=== PATIENT | female | born 1940 | race Caucasian/White ===

== ENCOUNTER → 2020-06-16 12:08 | Outpatient (CLI) | payer MEDICARE, SELFPAY ==
[2020-06-16 15:21] LABS: Absolute Lymphocyte Count 1.43 X10^3/uL (0.83-4.51); Absolute Neutrophil Count 3.7 X10^3/uL (2.0-7.7); Basophil# 0.05 X10^3/uL; Basophil% 0.9 % (0-1); Eosinophil# 0.13 X10^3/uL; Eosinophils% 2.3 % (0-5); Hematocrit 32.4 % (37-47); Hemoglobin 10.4 g/dL (12.0-15.0); Lymphocyte # 1.43 X10^3/ul (0.83-4.51); Lymphocyte % 25.1 % (19-41); Mean Corp Hgb Conc 32.1 g/dL (32-36); Mean Corpuscular Hgb 33.9 pg (27.0-32.0); Mean Corpuscular Volume 105.5 fL (81-99); Mean Platelet Vol. 10.2 fl (6.2-12.0); Monocyte# 0.43 X10^3/uL; Monocyte% 7.5 % (0-10); NRBC Flagged by Analyzer 0 % (0-5); Neutrophil # 3.65 X10^3/uL (2.7-7.7); Platelet Count 213 K/mm3 (150-450); RBC Distribution Width SD 50.3 fl (35.1-43.9); Red Blood Count 3.07 M/mm3 (4.2-5.4); White Blood Count 5.7 K/mm3 (4.4-11.0)
[2020-06-16 15:45] LABS: ALB/GLOB Ratio 0.9 RATIO (0.9-2.4); AST(SGOT) 31 U/L (15-37); Alanine Aminotransfer ALT/SGPT 24 U/L (13-56); Albumin, Serum 3.2 g/dL (3.2-5.0); Alkaline Phosphatase 130 U/L (45-117); Anion Gap 6 (5-15); BUN 48 mg/dL (7-18); Calcium,Total 9.1 mg/dL (8.5-10.1); Chloride 113 mmol/L (98-107); Cholesterol 184 mg/dL (200); Creatinine, Serum 2.52 mg/dL (0.55-1.02); EST Glomerular Filtration Rate 20 mL/min (>60); Est Glom Filt Rate - Afr Amer 24 mL/min (>60); Globulin 3.7 g/dL (2.2-4.2); Glucose 88 mg/dL (74-106); High Density Lipoprotein 69 mg/dL; Phosphorus 3.4 mg/dL (2.5-4.9); Potassium 4.2 mmol/L (3.5-5.1); Protein, Total 6.9 g/dL (6.4-8.2); Sodium Level 142 mmol/L (136-145); T4 Free Direct 1.02 ng/dL (0.76-1.46); Thyroid Stim Hormone (TSH) 1.24 uIU/mL (0.358-3.74); Triglycerides 142 mg/dL; Very Low Density Lipoprotein 28 mg/dL (5-40)
[2020-06-19 15:06] LABS: Ferritin 465 ng/mL (8-252); Iron 81 ug/dL (50-170); Iron Binding Capacity,Total 284 ug/dL (250-450); PERCENT IRON SATURATION 28.5 % (15.0-55.0)
[2020-06-20 15:13] LABS: Vitamin D 1,25-Dihydroxy 42.8 pg/mL (19.9-79.3)
[2020-06-28 16:47] LABS: Thyroglobulin RIA 6.9 ng/mL (.); Thyroid Peroxidase AB 266 IU/mL (0-34)
== END ==
PROVIDERS: PCP Family Medicine; Referring Provider Family Medicine; Visit Provider Family Medicine
DX: I25.10 Atherosclerotic heart disease of native coronary artery without angina pectoris (principal); N18.4 Chronic kidney disease, stage 4 (severe); E03.9 Hypothyroidism, unspecified
CPT/HCPCS: 36415; 80053; 80061; 82607; 82652; 82728; 82746; 83540; 83550; 83970; 84100; 84432; 84439; 84443; 85025; 86376; 86800

== ENCOUNTER 2020-06-19 22:11 | Observation (INO) | payer MEDICARE, SELFPAY ==
[2020-06-19 22:12] VITALS: BP 161/93; PULSE 62; RESP 18; TEMP 36.9; O2SAT 96; BMI 21.4
--- NOTE | 2020-06-19 22:18 | ED.RN ---
Dr Stringer called to triage to assess potential stroke alert.
[2020-06-19 22:25] VITALS: BP 160/95; PULSE 60; RESP 14; O2SAT 97
--- NOTE | 2020-06-19 22:25 | EKG12_ITS ---
Test Reason : STROKE Blood Pressure : / mmHG Vent. Rate : 060 BPM Atrial Rate : 060 BPM P-R Int : 174 ms QRS Dur : 160 ms QT Int : 478 ms P-R-T Axes : 043 -63 099 degrees QTc Int : 478 ms Normal sinus rhythm Left axis deviation Left bundle branch block Abnormal ECG Confirmed by ROXANA NASCIMENTO, JEANIE ([id number]), photo editor ALBERT OMER ([id number]) on 06/21/2020 9:16:36 AM Referred By: JAZLYN NASCIMENTO Confirmed By:JEANIE SCHMIDT MD
--- NOTE | 2020-06-19 22:26 | EDS_ITS ---
HPI History of Present Illness Chief Complaint: Neuro S/Sx Informant: patient and spouse/S.O. Onset/Context/Timing Onset: Today (noticed around 2139; last seen talking normally at 2100) Timing: Continuous Quality and Location: Positive for Right Facial Droop, Right Arm Weakness and Slurred Speech Current Severity: Mild Maximum Severity: Severe Worsened by: n/a Relieved by: nothing in particular Associated Symptoms Associated Symptoms: Negative for Headache, Vomiting and Chest Pain Narrative Narrative: brings in this demented patient for acute onset of slurred s peech, clumsiness with her right hand when trying to pick something up and seemed weak with it, and a facial droop. Seems better now. Difficult to assess because she is fairly demented. I was asked to evaluate this patient in triage because they walked in through the front door and there were patient in the waiting room with no available beds in the emergency department. He has been further states that earlier at dinner, around 1800, which is approximately 4.5 hours prior to this evaluation now, she was acting very unusual although she has dementia, and that she was using her hands with good strength but with confusion, at one point she was trying to pour water on her food, the intervened and then she tried to set her water glass on her dinner, he had to go wipe the food off of it, states that she was speaking at baseline though. No falls or injuries, no recent illness. She is on aspirin and clopidogrel because of a history of a cardiac stent. He is the durable healthcare power of senior attorney, he confirms that she has already written an advanced directive that basically says DNR [facility] arrest although there is no paperwork with them at this time. [facility] Medical History (Updated 06/19/20 @ 23:[address] Guille Stringer MD) CAD (coronary artery disease) Dementia Hypertension TIA (transient ischemic attack) Allergy/AdvReac Type Severity Reaction Status Date / Time Penicillins Allergy Hives Verified 06/19/20 22:28 wheat Allergy Angioedema Verified 06/19/20 22:28 Social History (Updated 06/19/20 @ 22:[address] Guille Stringer MD) household members: significant other Smoking Status: Never smoker ROS ROS ED Review of Systems ROS Unobtainable: due to mental condition and other Details: dementia Constitutional Constitutional ED: Denies chills or fever(s) Eyes Eyes: Denies blurry vision or diplopia ENT ENT ED: Denies ear pain, rhinorrhea or sore throat Cardiovascular Cardiovascular: Denies chest pain Respiratory/Chest Respiratory/Chest: Denies dyspnea Gastrointestinal Gastrointestinal: Reports other Details: occasional BRBPR ; Denies abdominal pain or vomiting Musculoskeletal Musculoskeletal: Denies back pain or neck pain Integumentary Denies abscess or rash EXAM Physical Exam Const Vital Signs: 06/19/20 22:12 06/19/20 22:25 06/19/20 22:44 Temperature 98.4 F Temperature Source Temporal Pulse Rate 62 60 Respiratory Rate 18 14 Blood Pressure 161/93 H 160/95 H Blood Pressure Mean 115 116 Pulse Ox 96 97 Oxygen Delivery Method Room Air Room Air Room Air 06/19/20 23:15 Temperature Temperature Source Pulse Rate 61 Respiratory Rate 15 Blood Pressure 170/83 H Blood Pressure Mean 112 Pulse Ox Oxygen Delivery Method Positive well nourished and well developed General Appearance ED: well developed and NAD HEENT Reports moist mucous membranes normocephalic and atraumatic Eyes PERRL and EOMs intact bilaterally Neck full ROM and supple Resp normal respiratory effort and clear to auscultation bilaterally Cardio regular rate, regular rhythm and no murmurs Rate: Negative for tachycardic GI normal to inspection, nondistended, normoactive bowel sounds, soft to palpation, non-tender and non-distended Back/Spine no CVA tenderness General Back: other FROM Extremity normal to inspection General Extremety ED: Negative for edema, pulses abnormal or tenderness General Extremity: Negative for edema or pulses abnormal Neuro CN's II-XII intact bilaterally and no sensory deficits noted Sensorium / Orientation: awake and alert Motor Exam: strength 5/5 throughout Skin no rashes or lesions noted and no wounds STROKE Vital Signs/Narrative: Vital Signs Temp Pulse Resp BP Pulse Ox 06/19/20 23:15 61 15 170/83 H 06/19/20 22:25 60 14 160/95 H 97 06/19/20 22:12 98.4 F 62 18 161/93 H 96 NIHSS Initial: 1a Level of Consciousness: 0 1b LOC Questions (Score 2 if aphasic/stupor): 2 1c LOC Commands (Only score 1st attempt): 0 2 Best Gaze (If aphasic, use reflexive mvmts.): 0 3 Visual: 0 4 Facial Palsy: 0 5 Motor Arm Right (UN = amputation/fusion): 0 5 Motor Arm Left: 0 6 Motor Leg Right: 0 6 Motor Leg Left: 0 7 Limb ataxia (Only + if out of proportion): 0 8 Sensory (Aphasia/stupor=0 or 1, coma=2): 0 9 Best Language: 1 10 Dysarthria (mute, coma=2, intubated=UN): 0 11 Extinction and Inattention (only scored if +): 0 Total Score: 3 MDM MDM MDM Narrative Medical decision making narrative: Discussed in real-time with neurology while stroke neurologist was evaluating the patient at bedside via telehealth. She agrees that she has an abnormal NIH, and is clinically testing positive for aphasia although much of it seems to be dementia according to the . He thinks she currently is at baseline. We discussed TPA with the , and he prefers not to give it since she seems to be at her baseline right now, and I think that is reasonable and appropriate. CT angiography is negative, so plan is to admit the patient for further work-up as a TIA. It is noted that she is on aspirin and clopidogrel as well. It is also noted that she is a little anemic compared with her last blood draw, she states she has had minor amount of blood in her stool recently. We will monitor that, no need for blood transfusion emergently at this time but sent type and screen, discussed with hospitalist for admission to PCU Lab Data Labs: Laboratory Results - last 24 hr 06/19/20 06/19/20 06/19/20 22:45 22:45 22:45 WBC 6.0 RBC 2.45 L Hgb 8.4 L Hct 25.8 L MCV 105.3 H MCH 34.3 H MCHC 32.6 RDW Std Deviation 49.4 H RDW Coeff of [place] 12.9 Plt Count 173 MPV 9.9 Immature Gran % (Auto) 0.500 Neut % (Auto) 62.1 Lymph % (Auto) 25.5 [place] % (Auto) 8.6 Eos % (Auto) 2.8 Baso % (Auto) 0.5 Absolute Neuts (auto) 3.7 Absolute Lymphs (auto) 1.54 Nucleated RBC % 0 PT 12.9 INR 1.0 APTT 28.9 Sodium 138 Potassium 4.8 Chloride 109 H Carbon Dioxide 22.0 Anion Gap 7 BUN 49 H Creatinine 2.55 H Estim Creat Clear Calc 12.85 Est GFR (MDRD) Af Amer 23 L Est GFR (MDRD) Non-Af 19 L BUN/Creatinine Ratio 19.2 Glucose 93 Calcium 8.2 L Troponin I 0.197 H Urine Color Urine Clarity Urine pH Ur Specific [place] Urine Protein Urine Glucose (UA) Urine Ketones Urine Occult Blood Urine Nitrite Urine Bilirubin Urine Urobilinogen Ur Leukocyte Esterase 06/19/20 23:15 WBC RBC Hgb Hct MCV MCH MCHC RDW Std Deviation RDW Coeff of [place] Plt Count MPV Immature Gran % (Auto) Neut % (Auto) Lymph % (Auto) [place] % (Auto) Eos % (Auto) Baso % (Auto) Absolute Neuts (auto) Absolute Lymphs (auto) Nucleated RBC % PT INR APTT Sodium Potassium Chloride Carbon Dioxide Anion Gap BUN Creatinine Estim Creat Clear Calc Est GFR (MDRD) Af Amer Est GFR (MDRD) Non-Af BUN/Creatinine Ratio Glucose Calcium Troponin I Urine Color Yellow Urine Clarity Clear Urine pH 6.0 Ur Specific [place] 1.010 Urine Protein 500 H Urine Glucose (UA) Normal Urine Ketones Negative Urine Occult Blood 10 H Urine Nitrite Negative Urine Bilirubin Negative Urine Urobilinogen Normal Ur Leukocyte Esterase Negative EKG Initial EKG: Attestation: I personally reviewed and interpreted this EKG as follows: Interpretation: Sinus Rhythm, No Acute Injury Pattern and LAFB Prior EKG tracings: not available for review Stroke Documentation Questions Stroke Team Activated: Yes Was Patient considered for Endovascular Intervention?: No (neg CTA) IV Alteplase (t-PA) Administered: No (pt back to baseline per ) Alteplase (t-PA) risks, benefits, alternative discussed: Yes (offered to yury frazier, declined since she seems back to baseline) Critical Care Time Critical Care Time: Yes Critical care time (excluding procedures): 30-74 minutes (32 min), Including time spent:, Discussing 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
--- NOTE | 2020-06-19 22:26 | CT_ITS ---
HISTORY: Neuro deficit, acute, stroke suspected Technique:CT Head Stroke Protocol W/O Contrast Injection. Sagittal and coronal 2-D reformats were performed on the acquisition scanner. Number of Images including paperwork:224 Comparison: None available. Findings: Periventricular deep and subcortical white matter disease is present. Paranasal sinuses are clear. The brain is atrophic. Calcific ASCVD involves intracranial arteries. No acute intracranial edema or hemorrhage. No acute abnormality of orbits. Middle ear cavities and mastoid air cells are well aerated. Skull is normal. CT/STROKE Brain/Head without Cont IMPRESSION: No acute intracranial abnormality. Chronic changes as above. ASPECT 10. Individualized dose optimization techniques were used for this CT. at 2241 Reported and signed by: Bjorn Kc MD N.B. : The above information has been verbally conveyed by Bjorn Kc MD to Guille Stringer MD, on 06/19/2020 22:42:26 (ET). Electronically Signed: Bjorn Kc MD at 22:40 EDT Tel , Service support ,
--- NOTE | 2020-06-19 22:30 | CT_ITS ---
EXAM: CT ANGIOGRAPHY HEAD AND NECK WITH INTRAVENOUS CONTRAST : 1940 CLINICAL INDICATION: Neuro deficit, acute, stroke suspected TECHNIQUE: [place]/head and neck CT angiography protocol performed with intravenous contrast. This CT exam was performed using one or more of the following dose reduction techniques: automated exposure control, adjustment of the mA and/or kV according to patient size, and/or use of iterative reconstruction technique. This report was created using [employer] report generation technology. MIP reconstructed images were created and reviewed. CONTRAST: IV 100mL [id number]-370 COMPARISON: None. FINDINGS: HEAD: RIGHT ANTERIOR CEREBRAL ARTERY: Patient appears to have a single trunk for the anterior cerebral artery that bifurcates once it is anterior to the genu of the corpus callosum. No significant stenosis at the visualized segments. Anterior communicating artery is present. No aneurysm. RIGHT MIDDLE CEREBRAL ARTERY: Unremarkable. No significant stenosis at the visualized segments. No aneurysm. RIGHT POSTERIOR CEREBRAL ARTERY: Unremarkable. No occlusion or significant stenosis. No aneurysm. LEFT ANTERIOR CEREBRAL ARTERY: See above. LEFT MIDDLE CEREBRAL ARTERY: Unremarkable. No significant stenosis at the visualized segments. No aneurysm. LEFT POSTERIOR CEREBRAL ARTERY: Unremarkable. No occlusion or significant stenosis. No aneurysm. BASILAR ARTERY: Unremarkable. No significant stenosis. No aneurysm. GREAT VESSELS OF AORTIC ARCH: Unremarkable. Normal anatomy, patent. OTHER VASCULATURE: No vascular malformation. NECK: RIGHT COMMON CAROTID ARTERY: Unremarkable. No significant stenosis. No dissection or occlusion. RIGHT INTERNAL CAROTID ARTERY: There is calcification seen in the origin of the right internal carotid artery but there is no evidence of high-grade stenosis. No dissection or occlusion. RIGHT EXTERNAL CAROTID ARTERY: Unremarkable. No occlusion. RIGHT VERTEBRAL ARTERY: Unremarkable. No significant stenosis. No dissection or occlusion. LEFT COMMON CAROTID ARTERY: Unremarkable. No significant stenosis. No dissection or occlusion. LEFT INTERNAL CAROTID ARTERY: There is minimal calcification at origin of the left internal carotid artery but there is no evidence of stenosis. No dissection or occlusion. LEFT EXTERNAL CAROTID ARTERY: Unremarkable. No occlusion. LEFT VERTEBRAL ARTERY: Unremarkable. No significant stenosis. No dissection or occlusion. LUNG APICES: Unremarkable as visualized. SOFT TISSUES: Unremarkable. CAROTID STENOSIS REFERENCE USING NASCET CRITERIA: % ICA stenosis = (1 - narrowest ICA diameter/diameter of distal cervical ICA) x 100. Moderate - 50-69% stenosis. Severe - 70-94% stenosis. Near occlusion - 95-99% stenosis. Occluded - 100% stenosis. CT/STROKE CTA Head AND Neck W/Con IMPRESSION: Minimal calcifications of the origins of the internal carotid arteries bilaterally but there is no evidence of stenosis. All other vessels are patent. There are no acute abnormalities. Individualized dose optimization techniques were used for this CT. at 2302 Reported and signed by: Shimon Velazquez MD N.B. : The above information has been verbally conveyed by Shimon Velazquez MD to Guille Stringer MD, on 06/19/2020 23:08:23 (ET). Electronically Signed: Shimon Velazquez MD at 23:01 EDT Tel , Service support ,
[2020-06-19 22:54] LABS: Absolute Lymphocyte Count 1.54 X10^3/uL (0.83-4.51); Absolute Neutrophil Count 3.7 X10^3/uL (2.0-7.7); Basophil# 0.03 X10^3/uL; Basophil% 0.5 % (0-1); Eosinophil# 0.17 X10^3/uL; Eosinophils% 2.8 % (0-5); Hematocrit 25.8 % (37-47); Hemoglobin 8.4 g/dL (12.0-15.0); Lymphocyte # 1.54 X10^3/ul (0.83-4.51); Lymphocyte % 25.5 % (19-41); Mean Corp Hgb Conc 32.6 g/dL (32-36); Mean Corpuscular Hgb 34.3 pg (27.0-32.0); Mean Corpuscular Volume 105.3 fL (81-99); Mean Platelet Vol. 9.9 fl (6.2-12.0); Monocyte# 0.52 X10^3/uL; Monocyte% 8.6 % (0-10); NRBC Flagged by Analyzer 0 % (0-5); Neutrophil # 3.74 X10^3/uL (2.7-7.7); Neutrophil % 62.1 % (47-70); Platelet Count 173 K/mm3 (150-450); RBC Distribution Width CV 12.9 % (11.6-14.6); RBC Distribution Width SD 49.4 fl (35.1-43.9); Red Blood Count 2.45 M/mm3 (4.2-5.4)
[2020-06-19 22:59] VITALS: BMI 21.0
[2020-06-19 23:10] LABS: Partial Thromboplast Time 28.9 Seconds (24.1-36.2); Prothrombin Time (Protime)PT. 12.9 SECONDS (11.7-14.9)
[2020-06-19 23:15] VITALS: BP 170/83; PULSE 61; RESP 15
--- NOTE | 2020-06-19 23:16 | ED.RN ---
dr. anderson cancels nih every 30 minutes at 2305
[2020-06-19 23:20] LABS: Anion Gap 7 (5-15); BUN 49 mg/dL (7-18); BUN/Creat Ratio 19.2 RATIO (10-20); Calcium,Total 8.2 mg/dL (8.5-10.1); Chloride 109 mmol/L (98-107); Creatinine, Serum 2.55 mg/dL (0.55-1.02); EST Glomerular Filtration Rate 19 mL/min (>60); Est Glom Filt Rate - Afr Amer 23 mL/min (>60); Estimated Creatinine Clearance 12.85 ml/min; Glucose 93 mg/dL (74-106); Potassium 4.8 mmol/L (3.5-5.1); Sodium Level 138 mmol/L (136-145)
[2020-06-19 23:21] LABS: Mucous, Urine 0 SEEN /hpf (<or=2+); Red Blood Cells-Urine 0 SEEN /hpf (0-5); Squamous Epithelial Cells - UA 0 SEEN /hpf (5-10); White Blood Cells 0 SEEN /hpf (0-5)
[2020-06-19 23:22] LABS: Color, Urine Yellow (Yellow); Glucose, Dipstick Normal (Normal); Ketone-Dipstick Negative (Negative); Leukocyte Esterase-Dipstick Negative /ul (Negative); Nitrite-Dipstick Negative (Negative); Occult Blood-Urine 10 /ul (Negative); Protein-Dipstick 500 mg/dl (Negative); Urine Bilirubin Dipstick Negative (Negative); Urine Clarity Clear (Clear); Urine Urobilinogen Normal (Normal)
--- NOTE | 2020-06-19 23:22 | RAD_ITS ---
We are attempting to reach an attending provider to discuss findings. An addendum with communication details will be sent when the communication is complete. HISTORY: Neuro deficit, acute, stroke suspected EXAM: XR Chest 1 View: COMPARISON: None FINDINGS: # of images incl. paperwork: 1 Free air is suggested under the right hemidiaphragm. Tortuosity descending thoracic aorta. Some basilar atelectasis is suspected. Heart is not enlarged. Scoliosis. Pulmonary vascularity is distinct. No effusions. RAD/Chest 1 View IMPRESSION: Probable free intraperitoneal gas under the right hemidiaphragm. It is feasible that this gas is not free end is within the lumen of small bowel or colon that is interposed between the liver and the diaphragm. Left lateral decubitus x-ray of the abdomen, [address] scan of the abdomen and pelvis may be beneficial to further clarify the nature of this potential acute disease.. at 0009 Reported and signed by: Bjorn Kc MD Electronically Signed: Bjorn Kc MD at 0:08 EDT Tel , Service support ,
[2020-06-19 23:46] LABS: Amorphous Sediment 1+; Bacteria 1+ /hpf (None Seen)
--- NOTE | 2020-06-19 23:53 | HP.PCM_ITS ---
HPI - General HPI Narrative MARIA ELENA WHITE, is a 79 F who presents with altered mental status per report. Patient's reports that patient has dementia but that during dinner she began doing odd things that are not normal to her like putting her cup of water in the middle of her plate and then later while doing dishes pa tient noticed her right arm was weak and that she had a facial droop. Patient currently has a positive NIH due to the fact that she cannot appropriately answer questions at baseline due to her dementia, although states she is now behaving at her baseline. [facility] Medical History (Updated 06/19/20 @ 23:57 by Allison Harrell NP-C) CAD (coronary artery disease) Dementia Hypertension TIA (transient ischemic attack) Allergy/AdvReac Type Severity Reaction Status Date / Time Penicillins Allergy Hives Verified 06/19/20 22:28 wheat Allergy Angioedema Verified 06/19/20 22:28 Surgical History (Updated 06/19/20 @ 23:57 by KAYLA WoodsC) History of carpal tunnel release of both wrists History of coronary artery stent placement History of herniorrhaphy Social History (Updated 06/19/20 @ 23:57 by Allison Harrell NP-C) household members: significant other Smoking Status: Never smoker alcohol intake: never substance use type: does not use ROS Constitutional Constitutional: Denies anorexia, chills or fatigue ENT HEENT: Denies abnormal hearing or dysphagia Cardiovascular Cardiovascular: Denies chest pain, edema or palpitations Respiratory/Chest Respiratory/Chest: Denies cough or hemoptysis Gastrointestinal Gastrointestinal: Denies abdominal pain, constipation or diarrhea Genitourinary Genitourinary: Denies dysuria or hematuria Musculoskeletal Musculoskeletal: Denies back pain, extremity pain or joint pain Integumentary Integumentary: Denies dry skin or jaundice Neurologic Neurologic: Reports abnormal speech, confusion and weakness Psychiatric Psychiatric: Denies anxiety or depression Endocrine Endocrinology: Denies change in body appearance, cold intolerance or heat intolerance Hematologic/Lymphatic Hematologic/Lymphatic: Denies easy bleeding or easy bruising Vital Signs Vital Signs Vital Signs: 06/19/20 22:12 06/19/20 22:25 06/19/20 22:44 Temperature 98.4 F Temperature Source Temporal Pulse Rate 62 60 Respiratory Rate 18 14 Blood Pressure 161/93 H 160/95 H Blood Pressure Mean 115 116 Pulse Ox 96 97 Oxygen Delivery Method Room Air Room Air Room Air 06/19/20 23:15 Temperature Temperature Source Pulse Rate 61 Respiratory Rate 15 Blood Pressure 170/83 H Blood Pressure Mean 112 Pulse Ox Oxygen Delivery Method Physical Exam Const alert and oriented x3 General Appearance: cooperative HEENT normocephalic, head/scalp atraumatic and EAC's normal Eyes PERRL and EOMs intact bilaterally Neck supple and no JVD Lymph Lymphatic: no lymphadenopathy noted Resp normal respiratory effort, normal air movement and clear to auscultation bilaterally Cardio regular rate, regular rhythm, S1 normal heart sound and S2 normal heart sound GI normal to inspection, nondistended, normoactive bowel sounds, soft to palpation and non-tender Extremity normal capillary refill and no clubbing, cyanosis or edema General Extremity: no tenderness to palpation of joints or extremities Skin General Skin Exam: no breakdown and turgor normal Lesions: no lesions Rashes: no rashes Neuro CN's II-XII intact bilaterally Speech: speech abnormal Details: Positive for stuttering ( states patient is at baseline) Psych cooperative and affect normal Appearance: appropriate Lab / Micro Data Result Diagrams: 06/19/20 22:45 06/19/20 22:45 Labs: Laboratory Results - last 24 hr 06/19/20 06/19/20 06/19/20 22:45 22:45 22:45 WBC 6.0 RBC 2.45 L Hgb 8.4 L Hct 25.8 L MCV 105.3 H MCH 34.3 H MCHC 32.6 RDW Std Deviation 49.4 H RDW Coeff of [place] 12.9 Plt Count 173 MPV 9.9 Immature Gran % (Auto) 0.500 Neut % (Auto) 62.1 Lymph % (Auto) 25.5 [place] % (Auto) 8.6 Eos % (Auto) 2.8 Baso % (Auto) 0.5 Absolute Neuts (auto) 3.7 Absolute Lymphs (auto) 1.54 Nucleated RBC % 0 PT 12.9 INR 1.0 APTT 28.9 Sodium 138 Potassium 4.8 Chloride 109 H Carbon Dioxide 22.0 Anion Gap 7 BUN 49 H Creatinine 2.55 H Estim Creat Clear Calc 12.85 Est GFR (MDRD) Af Amer 23 L Est GFR (MDRD) Non-Af 19 L BUN/Creatinine Ratio 19.2 Glucose 93 Calcium 8.2 L Troponin I 0.197 H Urine Color Urine Clarity Urine pH Ur Specific [place] Urine Protein Urine Glucose (UA) Urine Ketones Urine Occult Blood Urine Nitrite Urine Bilirubin Urine Urobilinogen Ur Leukocyte Esterase Urine RBC Urine WBC Ur Squamous Epith Cells Amorphous Sediment Urine Bacteria Urine Mucus 06/19/20 23:15 WBC RBC Hgb Hct MCV MCH MCHC RDW Std Deviation RDW Coeff of [place] Plt Count MPV Immature Gran % (Auto) Neut % (Auto) Lymph % (Auto) [place] % (Auto) Eos % (Auto) Baso % (Auto) Absolute Neuts (auto) Absolute Lymphs (auto) Nucleated RBC % PT INR APTT Sodium Potassium Chloride Carbon Dioxide Anion Gap BUN Creatinine Estim Creat Clear Calc Est GFR (MDRD) Af Amer Est GFR (MDRD) Non-Af BUN/Creatinine Ratio Glucose Calcium Troponin I Urine Color Yellow Urine Clarity Clear Urine pH 6.0 Ur Specific [place] 1.010 Urine Protein 500 H Urine Glucose (UA) Normal Urine Ketones Negative Urine Occult Blood 10 H Urine Nitrite Negative Urine Bilirubin Negative Urine Urobilinogen Normal Ur Leukocyte Esterase Negative Urine RBC 0 SEEN Urine WBC 0 SEEN Ur Squamous Epith Cells 0 SEEN Amorphous Sediment 1+ Urine Bacteria 1+ Urine Mucus 0 SEEN Assessment & Plan Assessment/Plan (1) TIA (transient ischemic attack): Status: Acute Code(s): G45.9 - Transient cerebral ischemic attack, unspecified (2) CRF (chronic renal failure): Status: Chronic Code(s): N18.9 - Chronic kidney disease, unspecified (3) Anemia: Status: Acute Code(s): D64.9 - Anemia, unspecified (4) CAD (coronary artery disease): Status: Inactive Code(s): I25.10 - Atherosclerotic heart disease of [place] coronary artery without angina pectoris Plan: 1. TIA -Admit to PCU for observation, CT/CTA negative -NIH positive, will continue every 4 hours per protocol however this is complicated by patient's dementia -Vital signs per protocol -Continue Plavix, hold aspirin due to suspected blood loss anemia -PT, OT, ST to eval and treat -N.p.o. pending bedside dysphagia screen -Case management consulted for discharge planning -Lipid panel in a.m. 2. Anemia -Appears to be chronic previous hemoglobin 10.4 on 06/16/2020, however current h emoglobin 8.4 -Type and screen ordered -CBC in a.m. 3.Chronic kidney disease stage IV -BUN 49/creatinine 2.55, consistent with patient baseline -Normal saline at 100ml/hr due to administration of contrast dye -CMP in a.m. -Troponin elevated, likely due to chronic kidney disease 4. Coronary artery disease -Coronary artery stent placed approximately 4 years ago -Continue Plavix DVT Prophylaxis-none indicated, observation. This patient was seen by ROX Woods under the supervision of Dr. Duggan.
[2020-06-20] VITALS (14 sets, daily range): BP systolic 145–166; BP diastolic 69–83; PULSE 52–65; RESP 14–18; TEMP 36.4–37.1; O2SAT 97–100; BMI 20.3
[2020-06-20] MEDS: 0.9% Normal Saline 1,000 ML 100 ML IV ×2 (01:53→14:46)
--- NOTE | 2020-06-20 03:15 | RAD_ITS ---
HISTORY: Pain. Previous chest x-ray read by me 4 hours earlier I question free air under the diaphragm. Left lateral decubitus x-ray. Findings: The gas seen under the diaphragm proves to be within the lumen of bowel. No free air. Bowel gas pattern of the visualized upper abdomen is normal. RAD/Special CXR (Obl/Decub/A/L) IMPRESSION: Suspected free air in the diaphragm from the previous chest x-ray proves to be within the lumen of bowel and not free air. at 0421 Reported and signed by: Bjorn Kc MD Electronically Signed: Bjorn Kc MD at 4:20 EDT Tel , Service support ,
[2020-06-20] MEDS: Levothyroxine 75 MCG Tablet PO (05:13)
[2020-06-20 05:38] LABS: Absolute Lymphocyte Count 1.39 X10^3/uL (0.83-4.51); Absolute Neutrophil Count 4.7 X10^3/uL (2.0-7.7); Basophil# 0.04 X10^3/uL; Basophil% 0.6 % (0-1); Eosinophil# 0.17 X10^3/uL; Eosinophils% 2.5 % (0-5); Hemoglobin 9.6 g/dL (12.0-15.0); Lymphocyte # 1.39 X10^3/ul (0.83-4.51); Lymphocyte % 20.5 % (19-41); Mean Corpuscular Hgb 33.9 pg (27.0-32.0); Mean Platelet Vol. 9.8 fl (6.2-12.0); Monocyte# 0.45 X10^3/uL; Monocyte% 6.6 % (0-10); NRBC Flagged by Analyzer 0 % (0-5); Neutrophil # 4.72 X10^3/uL (2.7-7.7); Neutrophil % 69.5 % (47-70); Platelet Count 199 K/mm3 (150-450); RBC Distribution Width CV 12.9 % (11.6-14.6); RBC Distribution Width SD 50.4 fl (35.1-43.9); Red Blood Count 2.83 M/mm3 (4.2-5.4); White Blood Count 6.8 K/mm3 (4.4-11.0)
[2020-06-20 05:58] LABS: ALB/GLOB Ratio 0.9 RATIO (0.9-2.4); AST(SGOT) 32 U/L (15-37); Alanine Aminotransfer ALT/SGPT 24 U/L (13-56); Albumin, Serum 2.9 g/dL (3.2-5.0); Alkaline Phosphatase 125 U/L (45-117); Anion Gap 8 (5-15); BUN 47 mg/dL (7-18); Calcium,Total 8.9 mg/dL (8.5-10.1); Chloride 112 mmol/L (98-107); Cholesterol 157 mg/dL (200); Creatinine, Serum 2.47 mg/dL (0.55-1.02); EST Glomerular Filtration Rate 20 mL/min (>60); Est Glom Filt Rate - Afr Amer 24 mL/min (>60); Estimated Creatinine Clearance 13.27 ml/min; Globulin 3.4 g/dL (2.2-4.2); Glucose 88 mg/dL (74-106); High Density Lipoprotein 65 mg/dL; Potassium 4.2 mmol/L (3.5-5.1); Protein, Total 6.3 g/dL (6.4-8.2); Sodium Level 140 mmol/L (136-145); Triglycerides 90 mg/dL; Very Low Density Lipoprotein 18 mg/dL (5-40)
--- NOTE | 2020-06-20 07:55 | ECHOD_ITS ---
Reason For Study: TIA/CVA Procedure This was a 2D Doppler, Color Flow transthoracic echocardiogram. The exam was of adequate technical quality. Exam performed portable in patient room. Left Ventricle Normal LV size. Left ventricular systolic function is normal. The estimated ejection fraction is 55 %. Septal motion consistent with IVCD. Diastolic function is indeterminate. No regional wall motion abnormalities noted. Right Ventricle Normal RV size. Normal systolic function. Atria The left atrium is mildly enlarged. Normal right atrium. No doppler evidence for ASD. Bubble contrast study negative for right to left interatrial shunt. Mitral Valve There is no mitral annular calcification. Mild focal mitral valve calcification of the anterior leaflet. Mild (1+) mitral valve insufficiency. Tricuspid Valve Normal tricuspid valve. Mild tricuspid valve insufficiency. Right ventricular systolic pressure estimated to be 33 mmHg. Aortic Valve Trisinus/trileaflet aortic valve. Mild diffuse aortic valve thickening. Pulmonic Valve The pulmonic valve is not well visualized. Great Vessels Normal sized aortic root. Pericardium/Pleural No pericardial effusion. Medication Performed a rapid injection of agitated mix of 9 cc saline and 1cc air to assess for atrial septal defect. MMode/2D Measurements & Calculations LVIDd: 4.9 cm IVSd: 0.77 cm Ao root diam: 3.0 cm LVIDs: 3.4 cm LVPWd: 0.79 cm RVDd: 2.8 cm FS: 29.9 % LAV(MOD-bp): 41.6 ml LVAd ap4: 32.9 cm2 SV(MOD-sp4): 59.4 ml LAV(MOD-bp) Indexed: 29.4 ml/m2 LVLd ap4: 8.1 cm LAV(MOD-sp2): 35.3 ml EDV(MOD-sp4): 113.9 ml LAV(MOD-sp4): 39.4 ml EDV(sp4-el): 113.0 ml LVAs ap4: 21.5 cm2 LVLs ap4: 7.3 cm ESV(MOD-sp4): 54.5 ml ESV(sp4-el): 53.7 ml EF(MOD-sp4): 52.2 % EF(sp4-el): 52.5 % SV(sp4-el): 59.3 ml LA A4 area: 16.9 cm2 LA dimension(2D): 3.6 cm RA A4 area: 12.8 cm2 Time Measurements MV dec time: 0.45 sec Doppler Measurements & Calculations MV E max sohail: 58.3 cm/sec Lat Peak E' Sohail: 7.6 cm/sec Med Peak E' Sohail: 3.4 cm/sec MV A max sohail: 94.5 cm/sec E/E' lat: 7.7 E/E' med: 17.4 MV E/A: 0.62 Ao V2 max: 166.8 cm/sec LV V1 max: 110.2 cm/sec PA V2 max: 90.3 cm/sec Ao max P.1 mmHg LV V1 max P.9 mmHg TR max sohail: 273.3 cm/sec TR max P.9 mmHg ECHO/Echo Complete Interpretation Summary Left ventricular systolic function is normal. The estimated ejection fraction is 55 %. Septal motion consistent with IVCD. The left atrium is mildly enlarged. Mild focal mitral valve calcification of the anterior leaflet. Mild (1+) mitral valve insufficiency. Mild tricuspid valve insufficiency. Mild diffuse aortic valve thickening. Right ventricular systolic pressure estimated to be 33 mmHg. Diastolic function is indeterminate. Bubble contrast study negative for right to left interatrial shunt. Ordering Physician: Lolly Lawrence Referring Physician: PRANEETH SAMUELS Performed By: Pao Leung, JOHN, RVT
[2020-06-20] MEDS: amLODIPine 5 MG Tablet PO (08:38)
[2020-06-20] MEDS: Clopidogrel Bisulfate 75 MG Tablet PO (08:38)
--- NOTE | 2020-06-20 08:48 | MRI_ITS ---
STUDY: MRI BRAIN WITHOUT CONTRAST REASON FOR EXAM: Female, 79 years old. TIA TECHNIQUE: Standardized multiplanar fat and water weighted pulse sequences were obtained. COMPARISON: CT 06/19/2020 FINDINGS: There is moderate cerebral atrophy with widening of the extra-axial spaces and ventricular dilatation. There are multiple white matter hyperintensities, distributed throughout the deep white matter tracts of the cerebral hemispheres, consistent with moderate chronic white matter ischemic changes. There is no evidence for recent intracranial ischemia or other cause of cytotoxic edema on diffusion weighted imaging (DWI). Normal T2* images of the brain without demonstrated susceptibility artifact. There is no demonstrated hemosiderin stain. Normal bilateral basal ganglia. Normal thalami. There is no extra-axial fluid accumulation. Normal flow voids within the major intracranial circulation suggesting patency by spin echo criteria. 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 Normal tectal plate and pineal gland. There are chronic white matter ischemic changes of the bee. The midbrain and medulla are otherwise normal. Normal cerebellum. Normal basal cisterns. Normal bilateral temporal bones. Normal bilateral internal auditory canals. There are bilateral ocular lens implants with otherwise normal intraorbital contents. Normal visualized paranasal sinuses. Normal calvarium and skull base. Normal visualized soft tissue structures. Normal visualized upper cervical spine. MRI/Brain without Contrast IMPRESSION: Involutional changes of the brain, as described above. No acute infarct. Electronically Signed: Song Lewis MD at 10:35 EDT Tel , Service support ,
[2020-06-20 10:50] LABS: Bedside Glucose 87 mg/dL (70-110)
--- NOTE | 2020-06-20 14:54 | PN.HOSP_ITS ---
Subjective Subjective: Patient seen and examined. She was admitted with a complaint of confusion. There were concerns for TIA and so CT of the brain was done which was negative for any evidence of stroke. CTA of the head and neck also showed no evidence of any stenosis. Patient had no complaints this morning. She was quite confused and though she knew her name, she did not know where she was and evaluate her birthday. I was unable to do a comprehensive review of systems on account of patient's confusion. Objective Data Objective Data Vital Signs: Vital Signs Temp Pulse Resp BP Pulse Ox 98.5 F 57 L 18 145/69 H 97 06/20/20 09:00 06/20/20 09:00 06/20/20 09:00 06/20/20 09:00 06/20/20 09:00 Oxygen Delivery Method Room Air Weight: 104 lb 0.931 oz Body Mass Index (BMI) 20.3 Finger Stick Blood Glucose 87 Intake & Output: Intake and Output for Last 24 Hours 06/18/20 06/19/20 06/20/20 23:59 23:59 23:59 Intake Total 1600 / 1600 Balance 1600 / 1600 Lab / Micro Data Result Diagrams: 06/20/20 05:30 06/20/20 05:30 Labs: Laboratory Results - last 24 hr 06/19/20 06/19/20 06/19/20 22:10 22:45 22:45 WBC 6.0 RBC 2.45 L Hgb 8.4 L Hct 25.8 L MCV 105.3 H MCH 34.3 H MCHC 32.6 RDW Std Deviation 49.4 H RDW Coeff of [place] 12.9 Plt Count 173 MPV 9.9 Immature Gran % (Auto) 0.500 Neut % (Auto) 62.1 Lymph % (Auto) 25.5 [place] % (Auto) 8.6 Eos % (Auto) 2.8 Baso % (Auto) 0.5 Absolute Neuts (auto) 3.7 Absolute Lymphs (auto) 1.54 Nucleated RBC % 0 PT 12.9 INR 1.0 APTT 28.9 Sodium Potassium Chloride Carbon Dioxide Anion Gap BUN Creatinine Estim Creat Clear Calc Est GFR (MDRD) Af Amer Est GFR (MDRD) Non-Af BUN/Creatinine Ratio Glucose Calcium Total Bilirubin AST ALT Alkaline Phosphatase Troponin I Total Protein Albumin Globulin Albumin/Globulin Ratio Triglycerides Cholesterol LDL Cholesterol VLDL Cholesterol HDL Cholesterol Urine Color Urine Clarity Urine pH Ur Specific [place] Urine Protein Urine Glucose (UA) Urine Ketones Urine Occult Blood Urine Nitrite Urine Bilirubin Urine Urobilinogen Ur Leukocyte Esterase Urine RBC Urine WBC Ur Squamous Epith Cells Amorphous Sediment Urine Bacteria Urine Mucus POC Glucose 87 Blood Type Antibody Screen 06/19/20 06/19/20 06/20/20 22:45 23:15 00:05 WBC RBC Hgb Hct MCV MCH MCHC RDW Std Deviation RDW Coeff of [place] Plt Count MPV Immature Gran % (Auto) Neut % (Auto) Lymph % (Auto) [place] % (Auto) Eos % (Auto) Baso % (Auto) Absolute Neuts (auto) Absolute Lymphs (auto) Nucleated RBC % PT INR APTT Sodium 138 Potassium 4.8 Chloride 109 H Carbon Dioxide 22.0 Anion Gap 7 BUN 49 H Creatinine 2.55 H Estim Creat Clear Calc 12.85 Est GFR (MDRD) Af Amer 23 L Est GFR (MDRD) Non-Af 19 L BUN/Creatinine Ratio 19.2 Glucose 93 Calcium 8.2 L Total Bilirubin AST ALT Alkaline Phosphatase Troponin I 0.197 H Total Protein Albumin Globulin Albumin/Globulin Ratio Triglycerides Cholesterol LDL Cholesterol VLDL Cholesterol HDL Cholesterol Urine Color Yellow Urine Clarity Clear Urine pH 6.0 Ur Specific [place] 1.010 Urine Protein 500 H Urine Glucose (UA) Normal Urine Ketones Negative Urine Occult Blood 10 H Urine Nitrite Negative Urine Bilirubin Negative Urine Urobilinogen Normal Ur Leukocyte Esterase Negative Urine RBC 0 SEEN Urine WBC 0 SEEN Ur Squamous Epith Cells 0 SEEN Amorphous Sediment 1+ Urine Bacteria 1+ Urine Mucus 0 SEEN POC Glucose Blood Type A POSITIVE Antibody Screen NEGATIVE 06/20/20 06/20/20 05:30 05:30 WBC 6.8 RBC 2.83 L Hgb 9.6 L Hct 30.0 L MCV 106.0 H MCH 33.9 H MCHC 32.0 RDW Std Deviation 50.4 H RDW Coeff of [place] 12.9 Plt Count 199 MPV 9.8 Immature Gran % (Auto) 0.300 Neut % (Auto) 69.5 Lymph % (Auto) 20.5 Good[place] % (Auto) 6.6 Eos % (Auto) 2.5 Baso % (Auto) 0.6 Absolute Neuts (auto) 4.7 Absolute Lymphs (auto) 1.39 Nucleated RBC % 0 PT INR APTT Sodium 140 Potassium 4.2 Chloride 112 H Carbon Dioxide 20.0 L Anion Gap 8 BUN 47 H Creatinine 2.47 H Estim Creat Clear Calc 13.27 Est GFR (MDRD) Af Amer 24 L Est GFR (MDRD) Non-Af 20 L BUN/Creatinine Ratio 19.0 Glucose 88 Calcium 8.9 Total Bilirubin 0.20 AST 32 ALT 24 Alkaline Phosphatase 125 H Troponin I Total Protein 6.3 L Albumin 2.9 L Globulin 3.4 Albumin/Globulin Ratio 0.9 Triglycerides 90 Cholesterol 157 LDL Cholesterol 74 VLDL Cholesterol 18 HDL Cholesterol 65 Urine Color Urine Clarity Urine pH Ur Specific [place] Urine Protein Urine Glucose (UA) Urine Ketones Urine Occult Blood Urine Nitrite Urine Bilirubin Urine Urobilinogen Ur Leukocyte Esterase Urine RBC Urine WBC Ur Squamous Epith Cells Amorphous Sediment Urine Bacteria Urine Mucus POC Glucose Blood Type Antibody Screen Radiography Diagnostic Testing: Radiology Impression Brain CT 06/19/20 22:26 IMPRESSION: No acute intracranial abnormality. Chronic changes as above. ASPECT 10. Individualized dose optimization techniques were used for this CT. at 2241 Reported and signed by: Bjorn Kc MD N.B. : The above information has been verbally conveyed by Bjorn Kc MD to Guille Stringer MD, on 06/19/2020 22:42:26 (ET). Electronically Signed: Bjorn Kc MD at 22:40 EDT Tel , Service support , Head/Neck CTA 06/19/20 22:30 IMPRESSION: Minimal calcifications of the origins of the internal carotid arteries bilaterally but there is no evidence of stenosis. All other vessels are patent. There are no acute abnormalities. Individualized dose optimization techniques were used for this CT. at 2302 Reported and signed by: Shimon Velazquez MD N.B. : The above information has been verbally conveyed by Shimon Velazquez MD to Guille Stringer MD, on 06/19/2020 23:08:23 (ET). Electronically Signed: Shimon Velazquez MD at 23:01 EDT Tel , Service support , Chest X-Ray 06/19/20 23:22 IMPRESSION: Probable free intraperitoneal gas under the right hemidiaphragm. It is feasible that this gas is not free end is within the lumen of small bowel or colon that is interposed between the liver and the diaphragm. Left lateral decubitus x-ray of the abdomen, [address] scan of the abdomen and pelvis may be beneficial to further clarify the nature of this potential acute disease.. at 0009 Reported and signed by: Bjorn Kc MD Electronically Signed: Bjorn Kc MD at 0:08 EDT Tel , Service support , ADDENDUM: 06/20/20 0046 IMPRESSION: Probable free intraperitoneal gas under the right hemidiaphragm. It is feasible that this gas is not free end is within the lumen of small bowel or colon that is interposed between the liver and the diaphragm. Left lateral decubitus x-ray of the abdomen, [address] scan of the abdomen and pelvis may be beneficial to further clarify the nature of this potential acute disease.. at 0009 Reported and signed by: Bjorn Kc MD N.B. : The above information has been verbally conveyed by Bjorn Kc MD to Chandra Barnes MD, on 06/20/2020 00:39:32 (ET). Electronically Signed: Bjorn Kc MD at 0:08 EDT Tel , Service support , Chest X-Ray 06/20/20 03:15 IMPRESSION: Suspected free air in the diaphragm from the previous chest x-ray proves to be within the lumen of bowel and not free air. at 0421 Reported and signed by: Bjorn Kc MD Electronically Signed: Bjorn Kc MD at 4:20 EDT Tel , Service support , Brain MRI 06/20/20 08:48 IMPRESSION: Involutional changes of the brain, as described above. No acute infarct. Electronically Signed: Song Lewis MD at 10:35 EDT Tel , Service support , Physical Exam Const alert Orientation / Consciousness: confused and disoriented Exam Limitations: altered mental status Nutritional Appearance: thin HEENT head/scalp atraumatic and moist oral mucous membranes Head and Scalp: normocephalic Eyes PERRL and EOMs intact bilaterally Neck no lymphadenopathy Resp normal respiratory effort, no retractions and clear to auscultation bilaterally Cardio S1 normal heart sound and S2 normal heart sound Cardio Narrative: bradycardic GI normal to inspection, nondistended, normoactive bowel sounds, soft to palpation, non-tender and non-distended Extremity normal to inspection and full ROM Skin no rashes or lesions noted Neuro CN's II-XII intact bilaterally, moves all extremities and no focal motor deficits Neuro Narrative: confused Sensorium / Orientation: awake and alert Psych Psych Narrative: confused Assessment & Plan Assessment/Plan (1) TIA (transient ischemic attack): Status: Acute Code(s): G45.9 - Transient cerebral ischemic attack, unspecified (2) Anemia: Status: Acute Code(s): D64.9 - Anemia, unspecified (3) CRF (chronic renal failure): Status: Chronic Code(s): N18.9 - Chronic kidney disease, unspecified Plan: #Acute metabolic encephalopathy * there were initial concerns about TIA on admission. However CT of the brain was negative an MRI of the brain done today was also negative for stroke. * Will check urinalysis to make sure there is no evidence of infection * PT OT on board. Fall precautions. In the absence of any infection, I think this may be just a worsening of her dementia. * Will get PT OT assessment to see if patient is safe to go home. * 2D echo: EF of 55% with normal left ventricular static function and RVSP of 33 mmHg. Bubble study negative for any evidence of interatrial shunt. * #Hypertension * continue current BP meds- amlodipine and metoprolol * #CAD: on plavix and metoprolol #Hypothyroidism: on synthroid DVT prophylaxis: SCDs Visit Charges OBSV E&M: 42346 Subsequent observation care L2
--- NOTE | 2020-06-20 16:07 | TELEMED_ITS ---
[facility] Tele[facility] has confirmed receipt of a request for visit. This document confirms receipt of the order initiating the consult. To find the results of the consultation, please view the patient's reports for the scanned Telemed Consult.
[2020-06-20] MEDS: Ezetimibe 10 MG Tablet PO (20:33)
[2020-06-21 02:50] VITALS: BP 159/73; PULSE 64; RESP 16; TEMP 36.7; O2SAT 99
[2020-06-21 02:56] VITALS: PULSE 57
[2020-06-21] MEDS: Levothyroxine 75 MCG Tablet PO (06:05)
--- NOTE | 2020-06-21 07:04 | CASEMGMT ---
SW did not complete a PHQ 9 with patient as she has Dementia and is not able to answer questions appropriately. Tenisha Jimenez ON [employer] DIRECTOR LEE
[2020-06-21 07:22] VITALS: O2SAT 96
[2020-06-21 07:51] VITALS: PULSE 82
[2020-06-21 08:29] VITALS: BP 152/69; PULSE 58; RESP 12; TEMP 36.5; O2SAT 99
[2020-06-21] MEDS: TICAGRELOR 90 MG TABLET PO (10:14)
[2020-06-21] MEDS: amLODIPine 5 MG Tablet PO (10:14)
--- NOTE | 2020-06-21 11:14 | CASEMGMT ---
Addendum entered by Danisha Hills 06/21/20 12:08: Pt in room. DALJIT BARRON in to discuss KENNEDY form with patient/. RN CM explained KENNEDY form, patient voiced understanding. Pt signed form and filed in chart. Pt and provided with a copy of signed KENNEDY form. DALJIT BARRON called [facility] pharmacy as pt has been prescribed Brilinta. Pt cost is $47.00. Provided a savings card to pt and with explanation. They verbalize understanding. Pt gave LW/DPOA papers. CM copied and filed in chart. Patient/ had no further questions or concerns at this time. Original Note: DALJIT BARRON in to pt room to give KENNEDY form. Pt did not appear able to comprehend the information. She requests to wait into her comes back to sign form.
--- NOTE | 2020-06-21 11:44 | PCM.DC ---
Discharge Instructions Outpatient Procedure Reason For Visit: TIA Diet Discharge Diet: Low fat / Low cholesterol Activity Discharge Activity: Return to Normal Activity and May Not Drive Weight Bearing Status: Weight bearing as tolerated Dressing / Incision Call your doctor if you observe: - (worsening confusion, weakness in extremity, slurring of speech or mouth droop) Follow Up Care Test Results: Test results from this visit will be discussed in further detail at your follow-up appointment, if applicable. Discharge Plan Admission Admit Date/Time: 06/19/20 23:53 Attending Provider: Lolly Lawrence Primary Care Provider: Zachariah Seay Instructions Patient Instructions: What Is a TIA?, Transient Ischemic Attack (TIA) Discharge Orders/Prescriptions Prescriptions: New Brilinta 90 mg Tablet 90 mg PO BID Qty: 60 RF: 1 Continued amlodipine 5 mg Tablet 5 mg PO DAILY RF: 0 levothyroxine [Synthroid] 75 mcg Tablet 75 mcg PO DAILY RF: 0 aspirin 81 mg Tablet 81 mg PO DAILY RF: 0 metoprolol succinate 25 mg tablet extended release 24 hr 25 mg PO QHS RF: 0 ezetimibe [Zetia] 10 mg Tablet 10 mg PO QHS RF: 0 Discontinued clopidogrel [Plavix] 75 mg Tablet 75 mg PO DAILY RF: 0 Referrals: Zachariah Seay MD [Primary Care Provider] - In 1 Week Disposition Disposition (needs filled in before D/C Order can be placed): Home, self care
--- NOTE | 2020-06-21 12:27 | PHA.DC.MC ---
Pharmacy Service has performed discharge medication reconciliation and counseling for this patient. The patient was counseled on the following discharge medications and changes in medications for homegoing were reviewed. 1. BRILINTA The Reason for Use, instructions for use, and potential side effects were reviewed for all new medications. The patient's questions regarding all of their medications were answered. The patient was able to verbally demonstrate an understanding of their discharge medications. Home Medications amlodipine 5 mg PO DAILY 06/20/20 aspirin 81 mg PO DAILY 06/20/20 ezetimibe [Zetia] 10 mg PO QHS 06/20/20 levothyroxine [Synthroid] 75 mcg PO DAILY 06/20/20 metoprolol succinate 25 mg PO QHS 06/20/20 ticagrelor [Brilinta] 90 mg PO BID #60 tab 06/21/20 The patient's discharge medication list was reviewed for discrepancies and discrepancies were resolved.
[2020-06-21 13:30] VITALS: BP 161/72; PULSE 56; RESP 12; TEMP 36.7; O2SAT 99
--- NOTE | 2020-06-21 15:29 | PCM.DC.SUM ---
Providers Date of Admission: 06/19/20 Primary Care Physician: Dr. Praneeth Samuels MD Reason For Visit: TIA Diagnosis Discharge Diagnosis (1) TIA (transient ischemic attack): Status: Acute Code(s): G45.9 - Transient cerebral ischemic attack, unspecified (2) Anemia: Status: Acute Code(s): D64.9 - Anemia, unspecified (3) CRF (chronic renal failure): Status: Chronic Code(s): N18.9 - Chronic kidney disease, unspecified Medications at Discharge Home Medications amlodipine 5 mg PO DAILY 06/20/20 aspirin 81 mg PO DAILY 06/20/20 ezetimibe [Zetia] 10 mg PO QHS 06/20/20 levothyroxine [Synthroid] 75 mcg PO DAILY 06/20/20 metoprolol succinate 25 mg PO QHS 06/20/20 ticagrelor [Brilinta] 90 mg PO BID #60 tab 06/21/20 Hospital Course Operations None Procedures 2-D Echocardiogram Summary of Care Provided Minutes Spent on Discharge: 55 Hospital Course: Patient is a 79-year-old female who was admitted with a complaint of altered mental status. She has a history of dementia but said she began doing small things like putting a cup in the middle of her plate. Later on, noted that her right arm was weak and she had a facial droop. He therefore decided to bring her in to the hospital due to concerns for stroke. CTA of the head and neck were negative and CT of the brain was also negative for evidence of stroke. She was admitted to be managed for TIA. She was put on Plavix which have been held on an aspirin was held due to concerns for suspected blood loss anemia. Patient also has CKD stage IV for which she was scheduled to follow-up with nephrology on outpatient basis. MRI of the brain done was also negative for stroke. 2D echo done showed EF of 55% with normal left ventricular systolic function and RVSP of 33 mmHg with bubble study negative for any evidence of interatrial shunt. [facility] neurology was consulted and was concerned that her dementia could be frontotemporal dementia instead of Alzheimer's dementia. [facility] neurologist recommended a battery of tests including EEG, RPR, vitamin B12, FTA and methylmalonic acid tests as well as TSH among others. I discussed this with her who stated that patient had been extensively worked up at the [facility] about a year ago due to concerns for TIA and dementia. He did bring the records that he had from [facility] and in the records, patient had been prescribed Namenda and Aricept. Patient's however said he did not comply with these recommendations because of the cost of the medications and also because he was told that the medications did not cure her Alzheimer's dementia but could slow down the progression of this. He therefore did not think that it was beneficial for patient to be on those medications and still did not think that him she needed to be on those medications. Patient's was not in favor of doing the test recommended by neurology as she had had extensive work-up for the same condition at [facility] about a year ago. Here was however agreeable to switching patient from Plavix to Brilinta as recommended by neurology. She was also to continue her aspirin and high intensity statin. Patient was evaluated by physical therapy and was discharged on 06/21/2020. She is to follow-up with her primary care doctor and was also referred to neurology and nephrology on outpatient basis Patient was seen and examined prior to discharge. Her was by her bedside. Patient was confused. Unable to do extensive review of systems on account of patient's confusion from her dementia. Labs and vitals reviewed. Her medication reviewed and reconciled. Hemoglobin was 9.6 at time of discharge. Physical Exam Const alert Constitutional Narrative: confused General Appearance: cooperative Orientation / Consciousness: confused and disoriented Nutritional Appearance: thin HEENT normocephalic, head/scalp atraumatic, EAC's normal and moist oral mucous membranes Eyes PERRL and EOMs intact bilaterally Neck no lymphadenopathy, supple and no JVD Lymph Lymphatic: no lymphadenopathy noted Resp normal respiratory effort, normal air movement, no retractions and clear to auscultation bilaterally Cardio regular rhythm, S1 normal heart sound and S2 normal heart sound Cardio Narrative: bradycardic GI normal to inspection, nondistended, normoactive bowel sounds, soft to palpation, non-tender and non-distended Extremity normal to inspection, full ROM, normal capillary refill and no clubbing, cyanosis or edema General Extremity: no tenderness to palpation of joints or extremities Skin no rashes or lesions noted General Skin Exam: no breakdown and turgor normal Lesions: no lesions Rashes: no rashes Neuro CN's II-XII intact bilaterally, moves all extremities and no focal motor deficits Neuro Narrative: confused, has some expressive aphasia. Sensorium / Orientation: awake and alert Speech: speech abnormal Details: Positive for stuttering ( states patient is at baseline) Psych cooperative and affect normal Psych Narrative: confused Appearance: appropriate ABG / Lab / Microbiology Data Result Diagrams: 06/20/20 05:30 06/20/20 05:30 Radiography Diagnostic Testing: D/C Instructions Discharge Diet: Low fat / Low cholesterol Discharge Activity: Return to Normal Activity and May Not Drive Weight Bearing Status: Weight bearing as tolerated Call your doctor if you observe: - (worsening confusion, weakness in extremity, slurring of speech or mouth droop) Meaningful Use Info Meaningful Use Diagnoses (Choose all that apply): None applicable Discharge Plan Admission Admit Date/Time: 06/19/20 23:53 Attending Provider: Lolly Lawrence Primary Care Provider: Praneeth Samuels Instructions Patient Instructions: What Is a TIA?, Transient Ischemic Attack (TIA) Discharge Orders/Prescriptions Prescriptions: New Brilinta 90 mg Tablet 90 mg PO BID Qty: 60 RF: 1 Continued amlodipine 5 mg Tablet 5 mg PO DAILY RF: 0 levothyroxine [Synthroid] 75 mcg Tablet 75 mcg PO DAILY RF: 0 aspirin 81 mg Tablet 81 mg PO DAILY RF: 0 metoprolol succinate 25 mg tablet extended release 24 hr 25 mg PO QHS RF: 0 ezetimibe [Zetia] 10 mg Tablet 10 mg PO QHS RF: 0 Discontinued clopidogrel [Plavix] 75 mg Tablet 75 mg PO DAILY RF: 0 Referrals: Cuauhtemoc Antoine MD [STAFF PHYSICIAN] - Within 2 Weeks (follow up for CKD) Praneeth Samuels MD [Primary Care Provider] - In 1 Week Jose Elias Kothari MD [STAFF PHYSICIAN] - Within 1 Month (follow up with neurology for TIA and dementia) Disposition Disposition (needs filled in before D/C Order can be placed): Home, self care Visit Charges OBSV E&M: [id number] Observation care discharge Radiography Radiography Radiography: Clinical Impression(s) from Imaging Studies Brain CT 06/19/20 22:26 IMPRESSION: No acute intracranial abnormality. Chronic changes as above. ASPECT 10. Individualized dose optimization techniques were used for this CT. at 2241 Reported and signed by: Bjorn Kc MD N.B. : The above information has been verbally conveyed by Bjorn Kc MD to Guille Stringer MD, on 06/19/2020 22:42:26 (ET). Electronically Signed: Bjorn Kc MD at 22:40 EDT Tel , Service support , Head/Neck CTA 06/19/20 22:30 IMPRESSION: Minimal calcifications of the origins of the internal carotid arteries bilaterally but there is no evidence of stenosis. All other vessels are patent. There are no acute abnormalities. Individualized dose optimization techniques were used for this CT. at 2302 Reported and signed by: Shimon Velazquez MD N.B. : The above information has been verbally conveyed by Shimon Velazquez MD to Guille Stringer MD, on 06/19/2020 23:08:23 (ET). Electronically Signed: Shimon Velazquez MD at 23:01 EDT Tel , Service support , Chest X-Ray 06/19/20 23:22 IMPRESSION: Probable free intraperitoneal gas under the right hemidiaphragm. It is feasible that this gas is not free end is within the lumen of small bowel or colon that is interposed between the liver and the diaphragm. Left lateral decubitus x-ray of the abdomen, [address] scan of the abdomen and pelvis may be beneficial to further clarify the nature of this potential acute disease.. at 0009 Reported and signed by: Bjorn Kc MD Electronically Signed: Bjorn Kc MD at 0:08 EDT Tel , Service support , ADDENDUM: 06/20/20 0046 IMPRESSION: Probable free intraperitoneal gas under the right hemidiaphragm. It is feasible that this gas is not free end is within the lumen of small bowel or colon that is interposed between the liver and the diaphragm. Left lateral decubitus x-ray of the abdomen, [address] scan of the abdomen and pelvis may be beneficial to further clarify the nature of this potential acute disease.. at 0009 Reported and signed by: Bjorn Kc MD N.B. : The above information has been verbally conveyed by Bjorn Kc MD to Chandra Barnes MD, on 06/20/2020 00:39:32 (ET). Electronically Signed: Bjorn Kc MD at 0:08 EDT Tel , Service support , Chest X-Ray 06/20/20 03:15 IMPRESSION: Suspected free air in the diaphragm from the previous chest x-ray proves to be within the lumen of bowel and not free air. at 0421 Reported and signed by: Bjorn Kc MD Electronically Signed: Bjorn Kc MD at 4:20 EDT Tel , Service support , Echocardiogram 06/20/20 07:55 Interpretation Summary Left ventricular systolic function is normal. The estimated ejection fraction is 55 %. Septal motion consistent with IVCD. The left atrium is mildly enlarged. Mild focal mitral valve calcification of the anterior leaflet. Mild (1+) mitral valve insufficiency. Mild tricuspid valve insufficiency. Mild diffuse aortic valve thickening. Right ventricular systolic pressure estimated to be 33 mmHg. Diastolic function is indeterminate. Bubble contrast study negative for right to left interatrial shunt. Ordering Physician: Lolly Lawrence Referring Physician: PRANEETH SAMUELS Performed By: Pao Leung, RDCS, RVT Brain MRI 06/20/20 08:48 IMPRESSION: Involutional changes of the brain, as described above. No acute infarct. Electronically Signed: Song Lewis MD at 10:35 EDT Tel , Service support ,
== END 2020-06-21 11:44 | disposition home or self-care (01) ==
LOC: ED 23:32 → PCU 06-20 00:49
PROVIDERS: Nurse Practitioner Family; Admitting Provider Family Medicine; Emergency Provider Emergency Medicine; PCP Family Medicine; Visit Provider Student in an Organized Health Care Education/Training Program
DX: G45.9 Transient cerebral ischemic attack, unspecified (principal); I12.9 Hypertensive chronic kidney disease with stage 1 through stage 4 chronic kidney disease, or unspecified chronic kidney disease; R29.810 Facial weakness; R53.1 Weakness; I25.10 Atherosclerotic heart disease of native coronary artery without angina pectoris; F03.90 Unspecified dementia, unspecified severity, without behavioral disturbance, psychotic disturbance, mood disturbance, and anxiety; R29.703 NIHSS score 3; D64.9 Anemia, unspecified; G93.41 Metabolic encephalopathy; E03.9 Hypothyroidism, unspecified; N18.4 Chronic kidney disease, stage 4 (severe); I44.7 Left bundle-branch block, unspecified; I08.3 Combined rheumatic disorders of mitral, aortic and tricuspid valves; R47.01 Aphasia; Z95.5 Presence of coronary angioplasty implant and graft; Z79.02 Long term (current) use of antithrombotics/antiplatelets; Z79.82 Long term (current) use of aspirin; Z66 Do not resuscitate; Z79.899 Other long term (current) drug therapy; E78.5 Hyperlipidemia, unspecified
CPT/HCPCS: 36415; 70450; 70496; 70498; 70551; 71045; 71046; 80048; 80053; 80061; 81001; 82962; 84484; 85025; 85610; 85730; 86850; 86900; 86901; 93005; 93306; 94762; 96360; 96361; 97161; 97166; 99218; 99285; J7030; P9612; Q9967; A4216; G0378

== ENCOUNTER 2020-07-02 16:47 | Emergency (ER) | payer MEDICARE, SELFPAY ==
[2020-06-20 01:30] VITALS: BMI 20.3
[2020-07-02 16:48] VITALS: BP 189/98; PULSE 78; RESP 16; TEMP 36.6; O2SAT 98; BMI 19.1
[2020-07-02] MEDS: 0.9% Normal Saline 1,000 ML 125 ML IV (17:20)
[2020-07-02 17:27] LABS: International Normalized Ratio 0.9; Prothrombin Time (Protime)PT. 11.7 SECONDS (11.7-14.9)
[2020-07-02 17:28] LABS: Absolute Lymphocyte Count 0.86 X10^3/uL (0.83-4.51); Absolute Neutrophil Count 8.6 X10^3/uL (2.0-7.7); Basophil# 0.05 X10^3/uL; Basophil% 0.5 % (0-1); Hematocrit 34.7 % (37-47); Hemoglobin 11.5 g/dL (12.0-15.0); Lymphocyte # 0.86 X10^3/ul (0.83-4.51); Lymphocyte % 8.6 % (19-41); Mean Corp Hgb Conc 33.1 g/dL (32-36); Mean Corpuscular Hgb 34.2 pg (27.0-32.0); Mean Corpuscular Volume 103.3 fL (81-99); Mean Platelet Vol. 10.2 fl (6.2-12.0); Monocyte# 0.36 X10^3/uL; Monocyte% 3.6 % (0-10); NRBC Flagged by Analyzer 0 % (0-5); Neutrophil # 8.64 X10^3/uL (2.7-7.7); Neutrophil % 85.9 % (47-70); Platelet Count 277 K/mm3 (150-450); RBC Distribution Width SD 49.3 fl (35.1-43.9); Red Blood Count 3.36 M/mm3 (4.2-5.4); White Blood Count 10.1 K/mm3 (4.4-11.0)
--- NOTE | 2020-07-02 17:28 | ED.VIS.GI ---
HPI HPI - GI History of Present Illness Chief Complaint: GI Bleed Informant: patient and spouse/S.O. Abdominal Pain/Flank Pain Onset: Today Context: Sudden Onset Timing: Intermittent Quality: Aching Current Severity: Mild Maximum Severity: Mild Worsened by: Nothing Relieved by: Nothing Nausea/Vomiting/Emesis GI Symptom: Positive for Nausea and Vomiting Onset: Today Severity: Mild Diarrhea/Melena/Hematochezia GI Symptom: Negative for Diarrhea Associated Symptoms Associated Symptoms: Negative for Dysuria and Frequency Narrative Narrative: 79-year-old female history of dementia. History of coronary artery disease with stents 2 weeks ago was placed on Brilinta. Also prior TIA and renal insufficiency. states she had done well throughout the day she ate breakfast this morning. When they were out to dinner tonight before she ate anything she had to go to the restroom and had nausea and vomiting. She is unsure if there was any blood in it. Her history is somewhat limited due to her dementia. said he never saw the emesis. He said then they went to a gas station she threw up there and then threw up on the way home and threw up again at home at home he was concerned that there may have been some dark blood in the emesis. She is never had a GI bleed before. She is not had melena that he is aware of. She does complain of some mild periumbilical abdominal discomfort. No recent fever or chills no dysuria. [facility] Medical History Anemia CAD (coronary artery disease) Coronary artery disease Dementia Dementia Hypertension Hypertension Hypothyroidism Kidney disease TIA (transient ischemic attack) TIA (transient ischemic attack) Home Medications amlodipine 5 mg PO DAILY 06/20/20 [History Last Taken 06/19/20] aspirin 81 mg PO DAILY 06/20/20 [History Last Taken 06/19/20] ezetimibe [Zetia] 10 mg PO QHS 06/20/20 [History Last Taken 06/19/20] levothyroxine [Synthroid] 75 mcg PO DAILY 06/20/20 [History Last Taken 06/19/20] metoprolol succinate 25 mg PO QHS 06/20/20 [History Last Taken 06/19/20] ticagrelor [Brilinta] 90 mg PO BID #60 tab 06/21/20 [Rx Last Taken Unknown] ondansetron HCl [Zofran] 4 mg PO Q6H PRN #10 tab 07/02/20 [Rx Last Taken Unknown] Allergy/AdvReac Type Severity Reaction Status Date / Time Penicillins Allergy Hives Verified 07/02/20 16:51 wheat Allergy Angioedema Verified 07/02/20 16:51 Surgical History History of carpal tunnel release of both wrists History of coronary artery stent placement History of coronary artery stent placement History of herniorrhaphy Social History household members: significant other housing: apartment number of children: 4 Smoking Status: Never smoker alcohol intake: never substance use type: does not use ROS ROS ED ROS Narrative Patient denies recent illness until today. Review of Systems ROS Unobtainable: due to mental status Constitutional Constitutional ED: Denies change in weight or headache(s) Eyes Eyes: Denies acute decrease in peripheral vision ENT ENT ED: Denies bleeding gums, dizziness or dry mouth Cardiovascular Cardiovascular: Reports abdominal pain Respiratory/Chest Respiratory/Chest: Denies change in phlegm color, chest congestion, chest tightness or cough Gastrointestinal Gastrointestinal: Reports abdominal pain Genitourinary Genitourinary ED: Denies burning urination or flank pain Musculoskeletal Musculoskeletal: Denies atrophy, back pain, difficulty walking or extremity pain Integumentary Denies alopecia Neurologic Neurologic: Denies systems reviewed and no addt'l complaints, except as documented, behavior changes or focal weakness Psychiatric Psychiatric: Reports confusion; Denies systems reviewed and no addt'l complaints, except as documented or anxiety Endocrine Endocrinology: Denies systems reviewed and no addt'l complaints, except as documented or deepening of the voice Hematologic/Lymphatic Hematologic/Lymphatic: Denies easy bruising or lymphadenopathy Allergic/Immunologic Allergic/Immunologic ED: Denies itchy eyes, lip swelling or mouth swelling EXAM Physical Exam Narrative Exam Narrative: Elderly female confused with history of dementia. Vital signs are stable afebrile. Accompanied by her in the room. Her exam is benign. Abdomen is benign. There is no peritoneal signs. No signs of obstruction. There is no specific tenderness. Lungs are clear. Neurologically she is confused from dementia but she is moving all of her extremities. Const Vital Signs: 07/02/20 16:48 Temperature 97.8 F Temperature Source Temporal Pulse Rate 78 Respiratory Rate 16 Blood Pressure 189/98 H Blood Pressure Mean 128 Pulse Ox 98 Oxygen Delivery Method Room Air Positive well nourished and well developed; Negative for obese General Appearance ED: active, cooperative, comfortable and well developed Nutritional Appearance: Negative for obese HEENT Reports normocephalic and head/scalp atraumatic normocephalic and normal to inspection Nose: external nose normal External Ear: external ears normal Mouth ED: Yes oral and palatal mucosa normal Mouth: oral and palatal mucosa normal Throat: posterior oropharynx normal Eyes PERRL and EOMs intact bilaterally General Eye ED: Yes normal appearance of both eyes Neck full ROM, No nuchal rigidity, no lymphadenopathy, supple, no meningeal signs and no JVD Lymph Lymphatic: no lymphadenopathy noted Chest Wall inspection of chest normal Chest: symmetrical chest wall rise; Negative for tenderness Resp normal respiratory effort, normal air movement, no retractions, no use of accessory muscles and clear to auscultation bilaterally Cardio regular rate, regular rhythm, no murmurs and no clicks Jugular Venous Distention: Negative for JVD GI soft to palpation and non-distended GI Narrative: Mild periumbilical tenderness. No peritoneal signs. No pulsatile mass. No signs of obstruction. Auscultation: normoactive bowel sounds Palpation: soft; Negative for rebound tenderness present no CVA tenderness Back/Spine no CVA tenderness Cervical Spine: Negative for cervical spine tenderness Extremity normal to inspection, full ROM, no calf tenderness and no pedal edema Neuro moves all extremities Motor Exam: strength 5/5 throughout Psych Appearance: grossly normal, appropriate and well kempt Attitude: calm and engaged Activity / Motor Behavior: appropriate eye contact Speech: normal speech Thought Process: normal thought process Thought Content: normal thought content Skin General Skin Exam: no breakdown Rashes: no rashes MDM MDM MDM Narrative Medical decision making narrative: Elderly female with periumbilical abdominal discomfort and multiple episodes of nausea and vomiting. Recently placed on Brilinta concerned there may have been blood in the emesis. Exam benign except for mild periumbilical tenderness. No signs of obstruction. No peritoneal signs. She will be treated with IV fluids, IV Zofran and labs are being obtained. At this time I do not think she needs any imaging. Repeat exam at 615 patient is doing well. Abdomen is benign nontender. No obstruction. Her labs are basically unremarkable. Discussed all the test results with her and her . I did do a rectal exam female nurse present in room is brown stool there is no bright red blood or melena. No signs of any GI bleed. Patient will be given a p.o. fluid challenge if she tolerates that well she will be discharged home with Zofran. Lab Data Attestation: I reviewed the patient's lab results. Lab results narrative: CBC shows a normal white count of 10. Hemoglobin is 11.5 which is anemic but her baseline or better. PT/INR normal. Chemistries unremarkable gap is 7. She does have known renal insufficiency with a BUN of 50 and a creatinine 3.02 which is slightly worse than her baseline. Liver enzymes are unremarkable. Lipase is normal. Labs: Laboratory Results - last 24 hr 07/02/20 07/02/20 07/02/20 17:09 17:09 17:09 WBC 10.1 RBC 3.36 L Hgb 11.5 L Hct 34.7 L MCV 103.3 H MCH 34.2 H MCHC 33.1 RDW Std Deviation 49.3 H RDW Coeff of Figueroa 13.0 Plt Count 277 MPV 10.2 Immature Gran % (Auto) 0.400 Neut % (Auto) 85.9 H Lymph % (Auto) 8.6 L Peach % (Auto) 3.6 Eos % (Auto) 1.0 Baso % (Auto) 0.5 Absolute Neuts (auto) 8.6 H Absolute Lymphs (auto) 0.86 Nucleated RBC % 0 PT 11.7 INR 0.9 Sodium 140 Potassium 4.5 Chloride 112 H Carbon Dioxide 21.0 Anion Gap 7 BUN 50 H Creatinine 3.02 H Estim Creat Clear Calc 11.68 Est GFR (MDRD) Af Amer 19 L Est GFR (MDRD) Non-Af 16 L BUN/Creatinine Ratio 16.6 Glucose 119 H Calcium 9.8 Total Bilirubin 0.30 AST 33 ALT 27 Alkaline Phosphatase 161 H Total Protein 8.1 Albumin 3.7 Globulin 4.4 H Albumin/Globulin Ratio 0.8 L Lipase 07/02/20 17:09 WBC RBC Hgb Hct MCV MCH MCHC RDW Std Deviation RDW Coeff of Fig[place] Plt Count MPV Immature Gran % (Auto) Neut % (Auto) Lymph % (Auto) Peach % (Auto) Eos % (Auto) Baso % (Auto) Absolute Neuts (auto) Absolute Lymphs (auto) Nucleated RBC % PT INR Sodium Potassium Chloride Carbon Dioxide Anion Gap BUN Creatinine Estim Creat Clear Calc Est GFR (MDRD) Af Amer Est GFR (MDRD) Non-Af BUN/Creatinine Ratio Glucose Calcium Total Bilirubin AST ALT Alkaline Phosphatase Total Protein Albumin Globulin Albumin/Globulin Ratio Lipase 244 Discharge Plan Triage Chief Complaint: GI Bleed ED Provider: Sandip Gibbs Dx/Rx/DC Orders Clinical Impression: Abdominal pain, Vomiting Instructions: Abdominal Pain, ED Vomiting (Adult) Prescriptions: New ondansetron HCl [Zofran] 4 mg tablet 4 mg PO Q6H PRN (Reason: nausea and vomiting) Qty: 10 RF: 0 No Action amlodipine 5 mg Tablet 5 mg PO DAILY RF: 0 levothyroxine [Synthroid] 75 mcg Tablet 75 mcg PO DAILY RF: 0 aspirin 81 mg Tablet 81 mg PO DAILY RF: 0 metoprolol succinate 25 mg tablet extended release 24 hr 25 mg PO QHS RF: 0 ezetimibe [Zetia] 10 mg Tablet 10 mg PO QHS RF: 0 Brilinta 90 mg Tablet 90 mg PO BID Qty: 60 RF: 1 Primary Care Provider: Zachariah Seay Referrals: Zachariah Seay MD [Primary Care Provider] - 3-5 Days Activity Restrictions/Additional Instructions: Zofran as needed for nausea which she may swallow or dissolve on her tongue. She only needs to take it if she is having nausea. Plenty of fluids and rest. Return if feeling worse or throws up any blood or has black stool. Her labs are unremarkable tonight and showed no signs of internal bleeding. Follow-up with your doctor if not improving. Disposition Disposition: Home, self care
[2020-07-02] MEDS: Ondansetron 4 MG/2 ML Vial IV (17:32)
[2020-07-02 17:40] LABS: ALB/GLOB Ratio 0.8 RATIO (0.9-2.4); AST(SGOT) 33 U/L (15-37); Alanine Aminotransfer ALT/SGPT 27 U/L (13-56); Albumin, Serum 3.7 g/dL (3.2-5.0); Alkaline Phosphatase 161 U/L (45-117); Anion Gap 7 (5-15); BUN 50 mg/dL (7-18); BUN/Creat Ratio 16.6 RATIO (10-20); Calcium,Total 9.8 mg/dL (8.5-10.1); Chloride 112 mmol/L (98-107); Creatinine, Serum 3.02 mg/dL (0.55-1.02); EST Glomerular Filtration Rate 16 mL/min (>60); Est Glom Filt Rate - Afr Amer 19 mL/min (>60); Estimated Creatinine Clearance 11.68 ml/min; Globulin 4.4 g/dL (2.2-4.2); Glucose 119 mg/dL (74-106); Potassium 4.5 mmol/L (3.5-5.1); Protein, Total 8.1 g/dL (6.4-8.2); Sodium Level 140 mmol/L (136-145)
[2020-07-02 17:51] LABS: Lipase 244 U/L (73-393)
[2020-07-02 20:46] VITALS: BP 157/108; PULSE 86; RESP 18
== END 2020-07-02 21:09 | disposition home or self-care (01) ==
PROVIDERS: Emergency Provider Emergency Medicine; PCP Family Medicine
DX: R10.33 Periumbilical pain (principal); R11.2 Nausea with vomiting, unspecified; D64.9 Anemia, unspecified; N28.9 Disorder of kidney and ureter, unspecified; I10 Essential (primary) hypertension; E03.9 Hypothyroidism, unspecified; I25.10 Atherosclerotic heart disease of native coronary artery without angina pectoris; F03.90 Unspecified dementia, unspecified severity, without behavioral disturbance, psychotic disturbance, mood disturbance, and anxiety; Z86.73 Personal history of transient ischemic attack (TIA), and cerebral infarction without residual deficits; Z95.5 Presence of coronary angioplasty implant and graft; Z79.82 Long term (current) use of aspirin; Z79.899 Other long term (current) drug therapy
CPT/HCPCS: 80053; 83690; 85025; 85610; 96361; 96374; 99283; J7030; A4216; J2405

== ENCOUNTER → 2020-07-04 | Outpatient (CLI) | payer MEDICARE, SELFPAY ==
[2020-07-02 16:48] VITALS: BMI 19.1
[2020-07-04 12:40] LABS: Protein, Urine (Random) 509.4 mg/dL (<11.9); Protein:Creat Ratio 3949 mg/g CRE (0-200)
== END | disposition home or self-care (01) ==
LOC: LABSPEC 11:57
PROVIDERS: PCP Family Medicine; Visit Provider Internal Medicine Nephrology
DX: N18.4 Chronic kidney disease, stage 4 (severe) (principal)
CPT/HCPCS: 82570; 84156

== ENCOUNTER 2020-07-12 15:19 | Inpatient (IN) | payer MEDICARE, SELFPAY ==
[2020-07-12 15:20] VITALS: BP 121/72; PULSE 86; RESP 15; TEMP 36.3; O2SAT 98; BMI 20.2
[2020-07-12 15:21] VITALS: BP 121/72; PULSE 86; RESP 15; TEMP 36.3; O2SAT 98
--- NOTE | 2020-07-12 15:36 | EDS_ITS ---
HPI HPI - GI History of Present Illness Chief Complaint: Diarrhea Detail of Chief Complaint: Started 4 days ago Informant: patient and spouse/S.O. Diarrhea/Melena/Hematochezia GI Symptom: Positive for Diarrhea Narrative Narrative: Patient presents to the emergency department with diarrhea that started 4 days ago and was severe at first. Patient called the primary care physician's office was told to use Imodium. He has no fever Imodium and diarrhea mostly resolved until this morning when she has another episode. Patient had increased #his hand and has been more weak and had a hard time walking now. Primary care physician advised him to come to the ER for concern about possibly dehydration. Patient's not any fever. She has been vomiting. She denies chest pain or shortness of breath. She denies recent antibiotic usage. Most of the history comes from the as patient is a poor historian with history of dementia. Patient also has history of coronary artery disease chronic kidney disease. No sick contacts known. [facility] Medical History Anemia CAD (coronary artery disease) Coronary artery disease Dementia Dementia Hypertension Hypertension Hypothyroidism Kidney disease TIA (transient ischemic attack) TIA (transient ischemic attack) Home Medications amlodipine 5 mg PO DAILY 06/20/20 [History Last Taken 06/19/20] aspirin 81 mg PO DAILY 06/20/20 [History Last Taken 06/19/20] ezetimibe [Zetia] 10 mg PO QHS 06/20/20 [History Last Taken 06/19/20] levothyroxine [Synthroid] 75 mcg PO DAILY 06/20/20 [History Last Taken 06/19/20] metoprolol succinate 25 mg PO QHS 06/20/20 [History Last Taken 06/19/20] ticagrelor [Brilinta] 90 mg PO BID #60 tab 06/21/20 [Rx Last Taken Unknown] Allergy/AdvReac Type Severity Reaction Status Date / Time Penicillins Allergy Hives Verified 07/12/20 15:22 wheat Allergy Angioedema Verified 07/12/20 15:22 Surgical History History of carpal tunnel release of both wrists History of coronary artery stent placement History of coronary artery stent placement History of herniorrhaphy Social History household members: significant other housing: apartment number of children: 4 Smoking Status: Never smoker alcohol intake: never substance use type: does not use ROS ROS ED Constitutional Constitutional ED: Reports systems reviewed and no addt'l complaints, except as documented; Denies body ache(s), change in weight or chills Eyes Eyes: Denies acute decrease in peripheral vision, change in vision, double vision or loss of vision ENT ENT ED: Reports none; Denies ear pain, lip swelling, loss taste/smell, neck pain, otalgia or sore throat Cardiovascular Cardiovascular: Reports none; Denies abdominal pain, chest pain with activity, leg edema, lightheadedness, palpitations, rapid heart rate or syncope Respiratory/Chest Respiratory/Chest: Reports none; Denies change in mental status, dry cough, dyspnea, hemoptysis, shortness of breath at rest or shortness of breath with exertion Gastrointestinal Gastrointestinal: Reports none, diarrhea and other Details: Decreased appetite ; Denies abdominal pain, change in stool character, hematemesis, hematochezia, melena, rectal bleeding or vomiting Genitourinary Genitourinary ED: Reports none; Denies abdominal discomfort, anuria, dysuria, genital pain or polyuria Musculoskeletal Musculoskeletal: Reports none; Denies arthralgias, back pain, difficulty walking, extremity pain, muscle weakness or myalgias Integumentary Reports none; Denies abscess or rash Neurologic Neurologic: Reports none; Denies abnormal gait, confusion, focal weakness, frequent falls, headache(s), loss of vision, numbness, paresthesias, radicular pain, vertigo or weakness Psychiatric Psychiatric: Reports systems reviewed and no addt'l complaints, except as documented and none; Denies behavioral changes, confusion, difficulty concentrating, hallucinations, suicidal ideation, tactile hallucinations or visual hallucinations Endocrine Endocrinology: Denies none, cold intolerance, excessive sweating, fatigue or heat intolerance Hematologic/Lymphatic Hematologic/Lymphatic: Reports none; Denies anemia, easy bleeding or easy bruising Allergic/Immunologic Allergic/Immunologic ED: Denies as per HPI, none, lip swelling, mouth swelling, throat swelling, tongue swelling or hives EXAM Physical Exam Const Vital Signs: 07/12/20 15:20 07/12/20 15:21 Temperature 97.3 F L 97.3 F L Temperature Source Temporal Temporal Pulse Rate 86 86 Respiratory Rate 15 15 Blood Pressure 121/72 H 121/72 H Blood Pressure Mean 88 88 Pulse Ox 98 98 Oxygen Delivery Method Room Air Room Air Positive well nourished and well developed General Appearance ED: well developed and NAD HEENT Reports TM's clear and moist mucous membranes normocephalic and atraumatic; Negative for trauma or tenderness Tympanic Membrane ED: Yes TM's clear Eyes PERRL and EOMs intact bilaterally General Eye ED: Negative for pale conjunctiva or scleral icterus Neck no lymphadenopathy, supple and no JVD General: Negative for tenderness Chest Wall inspection of chest normal and palpation of chest normal Chest: Negative for tenderness Resp normal respiratory effort and clear to auscultation bilaterally Effort and Inspection: Negative for respiratory distress or pain with movement Auscultation: Negative for rhonchi, wheezes or diminished lung sounds Cardio regular rate, regular rhythm, S1 normal heart sound, S2 normal heart sound and no murmurs Peripheral Pulses: pulses 2+ throughout GI normal to inspection, nondistended, normoactive bowel sounds, soft to palpation, non-tender, non-distended and no masses Back/Spine no CVA tenderness and no thoracic nor lumbar tenderness Extremity normal to inspection General Extremety ED: Negative for edema General Extremity: Negative for edema Neuro oriented x3, CN's II-XII intact bilaterally, no sensory deficits noted and gait normal Sensorium / Orientation: awake, alert, oriented to person, oriented to place and oriented to time Motor Exam: strength 5/5 throughout and strength abnormal Psych mental status grossly normal Skin no rashes or lesions noted and no wounds MDM MDM MDM Narrative Medical decision making narrative: Patient with acute kidney injury and signs of dehydration. She also has a UTI. She was started on Rocephin and urine culture sent. Patient will be discussed with hospitalist evaluate her admission Lab Data Attestation: I reviewed the patient's lab results. Labs: Laboratory Results - last 24 hr 07/12/20 07/12/20 07/12/20 15:30 15:30 15:30 WBC 7.8 RBC 3.15 L Hgb 10.9 L Hct 31.9 L MCV 101.3 H MCH 34.6 H MCHC 34.2 RDW Std Deviation 48.2 H RDW Coeff of [place] 13.1 Plt Count 299 MPV 9.8 Immature Gran % (Auto) 0.400 Neut % (Auto) 80.8 H Lymph % (Auto) 9.5 L [place] % (Auto) 7.5 Eos % (Auto) 1.5 Baso % (Auto) 0.3 Absolute Neuts (auto) 6.3 Absolute Lymphs (auto) 0.74 L Nucleated RBC % 0 Sodium 134 L Potassium 3.3 L Chloride 106 Carbon Dioxide 16.0 L Anion Gap 12 BUN 70 H Creatinine 4.68 H Estim Creat Clear Calc 7.00 Est GFR (MDRD) Af Amer 12 L Est GFR (MDRD) Non-Af 10 L BUN/Creatinine Ratio 15.0 Glucose 130 H Lactic Acid 1.6 Calcium 9.1 Total Bilirubin 0.30 AST 22 ALT 18 Alkaline Phosphatase 138 H Troponin I 0.129 H Total Protein 7.3 Albumin 2.9 L Globulin 4.4 H Albumin/Globulin Ratio 0.7 L Urine Color Urine Clarity Urine pH Ur Specific [place] Urine Protein Urine Glucose (UA) Urine Ketones Urine Occult Blood Urine Nitrite Urine Bilirubin Urine Urobilinogen Ur Leukocyte Esterase Urine RBC Urine WBC Ur Squamous Epith Cells Ur Transition Epith Cell Amorphous Sediment Urine Bacteria Hyaline Casts Urine Mucus 07/12/20 16:00 WBC RBC Hgb Hct MCV MCH MCHC RDW Std Deviation RDW Coeff of [place] Plt Count MPV Immature Gran % (Auto) Neut % (Auto) Lymph % (Auto) [place] % (Auto) Eos % (Auto) Baso % (Auto) Absolute Neuts (auto) Absolute Lymphs (auto) Nucleated RBC % Sodium Potassium Chloride Carbon Dioxide Anion Gap BUN Creatinine Estim Creat Clear Calc Est GFR (MDRD) Af Amer Est GFR (MDRD) Non-Af BUN/Creatinine Ratio Glucose Lactic Acid Calcium Total Bilirubin AST ALT Alkaline Phosphatase Troponin I Total Protein Albumin Globulin Albumin/Globulin Ratio Urine Color Yellow Urine Clarity Cloudy Urine pH 5.0 Ur Specific [place] 1.020 Urine Protein 500 H Urine Glucose (UA) Normal Urine Ketones 5 H Urine Occult Blood 10 H Urine Nitrite Negative Urine Bilirubin Negative Urine Urobilinogen Normal Ur Leukocyte Esterase 500 H Urine RBC 0 SEEN Urine WBC 50-100 SEEN Ur Squamous Epith Cells 0-5 SEEN Ur Transition Epith Cell 0-5 SEEN Amorphous Sediment 2+ Urine Bacteria 4+ Hyaline Casts 0-5 SEEN Urine Mucus 0 SEEN EKG Initial EKG: Comments: With ventricular rate of 82 bpm with a left bundle branch block. Prior: Unchanged Discharge Plan Triage Chief Complaint: Diarrhea ED Provider: Caroline Ramirez Dx/Rx/DC Orders Clinical Impression: Acute kidney injury, Acute UTI, Diarrhea Prescriptions: No Action amlodipine 5 mg Tablet 5 mg PO DAILY RF: 0 levothyroxine [Synthroid] 75 mcg Tablet 75 mcg PO DAILY RF: 0 aspirin 81 mg Tablet 81 mg PO DAILY RF: 0 metoprolol succinate 25 mg tablet extended release 24 hr 25 mg PO QHS RF: 0 ezetimibe [Zetia] 10 mg Tablet 10 mg PO QHS RF: 0 Brilinta 90 mg Tablet 90 mg PO BID Qty: 60 RF: 1 Primary Care Provider: Zachariah Seay Referrals: Zachariah Seay MD [Primary Care Provider] - Disposition Disposition: Acute Care [facility]
--- NOTE | 2020-07-12 15:36 | EKG12_ITS ---
Test Reason : Blood Pressure : / mmHG Vent. Rate : 082 BPM Atrial Rate : 082 BPM P-R Int : 188 ms QRS Dur : 176 ms QT Int : 448 ms P-R-T Axes : 037 -47 113 degrees QTc Int : 523 ms Normal sinus rhythm Left axis deviation Left bundle branch block Abnormal ECG Confirmed by ROXANA NASCIMENTO, JEANIE ([id number]), editor managing newspaper ALBERT OMER ([id number]) on 07/13/2020 11:30:46 AM Referred By: DANIELLE Confirmed By:JEANIE SCHMIDT MD
[2020-07-12 15:43] LABS: Absolute Lymphocyte Count 0.74 X10^3/uL (0.83-4.51); Absolute Neutrophil Count 6.3 X10^3/uL (2.0-7.7); Basophil# 0.02 X10^3/uL; Basophil% 0.3 % (0-1); Eosinophil# 0.12 X10^3/uL; Eosinophils% 1.5 % (0-5); Hematocrit 31.9 % (37-47); Hemoglobin 10.9 g/dL (12.0-15.0); Lymphocyte # 0.74 X10^3/ul (0.83-4.51); Lymphocyte % 9.5 % (19-41); Mean Corp Hgb Conc 34.2 g/dL (32-36); Mean Corpuscular Hgb 34.6 pg (27.0-32.0); Mean Corpuscular Volume 101.3 fL (81-99); Mean Platelet Vol. 9.8 fl (6.2-12.0); Monocyte# 0.58 X10^3/uL; Monocyte% 7.5 % (0-10); NRBC Flagged by Analyzer 0 % (0-5); Neutrophil # 6.29 X10^3/uL (2.7-7.7); Neutrophil % 80.8 % (47-70); Platelet Count 299 K/mm3 (150-450); RBC Distribution Width CV 13.1 % (11.6-14.6); RBC Distribution Width SD 48.2 fl (35.1-43.9); Red Blood Count 3.15 M/mm3 (4.2-5.4); White Blood Count 7.8 K/mm3 (4.4-11.0)
[2020-07-12] MEDS: 0.9% Normal Saline 1,000 ML 125 ML IV (15:47)
[2020-07-12 16:04] LABS: Mucous, Urine 0 SEEN /hpf (<or=2+); Red Blood Cells-Urine 0 SEEN /hpf (0-5)
[2020-07-12 16:09] LABS: Lactic Acid 1.6 mmol/L (0.4-1.9)
[2020-07-12 16:10] LABS: ALB/GLOB Ratio 0.7 RATIO (0.9-2.4); AST(SGOT) 22 U/L (15-37); Alanine Aminotransfer ALT/SGPT 18 U/L (13-56); Albumin, Serum 2.9 g/dL (3.2-5.0); Alkaline Phosphatase 138 U/L (45-117); Anion Gap 12 (5-15); BUN 70 mg/dL (7-18); Calcium,Total 9.1 mg/dL (8.5-10.1); Chloride 106 mmol/L (98-107); Creatinine, Serum 4.68 mg/dL (0.55-1.02); EST Glomerular Filtration Rate 10 mL/min (>60); Est Glom Filt Rate - Afr Amer 12 mL/min (>60); Globulin 4.4 g/dL (2.2-4.2); Glucose 130 mg/dL (74-106); Potassium 3.3 mmol/L (3.5-5.1); Protein, Total 7.3 g/dL (6.4-8.2); Sodium Level 134 mmol/L (136-145)
[2020-07-12 16:12] LABS: Color, Urine Yellow (Yellow); Glucose, Dipstick Normal (Normal); Ketone-Dipstick 5 mg/dl (Negative); Leukocyte Esterase-Dipstick 500 /ul (Negative); Nitrite-Dipstick Negative (Negative); Occult Blood-Urine 10 /ul (Negative); Protein-Dipstick 500 mg/dl (Negative); Urine Bilirubin Dipstick Negative (Negative); Urine Clarity Cloudy (Clear); Urine Urobilinogen Normal (Normal)
[2020-07-12 16:28] LABS: Bacteria 4+ /hpf (None Seen); Transitional Epithelial - Ur 0-5 SEEN /hpf (0-5)
[2020-07-12 16:30] LABS: White Blood Cells 50-100 SEEN /hpf (0-5)
[2020-07-12 16:33] LABS: Hyaline Cast 0-5 SEEN /lpf (0-5)
[2020-07-12 16:34] LABS: Squamous Epithelial Cells - UA 0-5 SEEN /hpf (5-10)
[2020-07-12 16:35] LABS: Amorphous Sediment 2+
[2020-07-12] MEDS: Ceftriaxone 1 GM/50 ML BAG IV (16:58)
[2020-07-12 17:00] VITALS: BP 138/72; PULSE 70; RESP 16; TEMP 36.9; O2SAT 100
--- NOTE | 2020-07-12 17:20 | HP.PCM.HOS_ITS ---
Documented by User: Ira Ruff NP, [employer] 07/12/20 17:44 HPI - General General Date of Admission: 07/12/20 Chief Complaint: Diarrhea, weakness. HPI Narrative MARIA ELENA WHITE, is a 79 F who presents to the Emergency Room due diarrhea and weakness. Patient has a history of dementia and unable to provide HPI. at bedside provides HPI. states patient began having watery diarrhea on Friday evening into Friday with 10 episodes on Friday. He denies blood in stool or mucousy stool. He notified primary care office on Friday morning and they advised him to give patient Imodium which improved her diarrhea. However, states patient did not have an appetite and was not taking in much fluids. He took her to primary care for further evaluation who suspected she was dehydrated and referred her to the emergency room for further evaluation. Patient had one episode of diarrhea this morning however significantly improved from prior. Patient pleasantly confused, smiles during assessment however does not answer any questions appropriately. is not aware of patient having any fever. Per , patient has a past medical history of chronic kidney disease stage IV, CAD, history of TIA, hypothyroidism, hypertension. [facility] Medical History (Reviewed 07/12/20 @ 17:26 by Ira Ruff [employer], [employer]) Anemia CAD (coronary artery disease) Coronary artery disease Dementia Dementia Hypertension Hypertension Hypothyroidism Kidney disease TIA (transient ischemic attack) TIA (transient ischemic attack) Home Medications amlodipine 5 mg PO DAILY 06/20/20 [History Last Taken 07/12/20] ezetimibe [Zetia] 10 mg PO QHS 06/20/20 [History Last Taken 07/11/20] levothyroxine [Synthroid] 75 mcg PO DAILY 06/20/20 [History Last Taken 07/12/20] metoprolol succinate 25 mg PO QHS 06/20/20 [History Last Taken 07/11/20] ticagrelor [Brilinta] 90 mg PO BID #60 tab 06/21/20 [Rx Last Taken 07/12/20] aspirin 81 mg PO DAILY 07/12/20 [History Last Taken 07/12/20] Allergy/AdvReac Type Severity Reaction Status Date / Time Penicillins Allergy Hives Verified 07/12/20 15:22 wheat Allergy Angioedema Verified 07/12/20 15:22 other (Patient demented, unable to provide family history) Surgical History (Reviewed 07/12/20 @ 17:27 by Ira Ruff [employer], [employer]) History of carpal tunnel release of both wrists History of coronary artery stent placement History of coronary artery stent placement History of herniorrhaphy Social History household members: significant other housing: apartment number of children: 4 Smoking Status: Never smoker alcohol intake: never substance use type: does not use ROS Review of Systems ROS Unobtainable: other Details: Due to dementia, pt unable to provide HPI. provides information. Vital Signs Vital Signs Vital Signs: 07/12/20 15:20 07/12/20 15:21 07/12/20 17:00 Temperature 97.3 F L 97.3 F L 98.5 F Temperature Source Temporal Temporal Oral Pulse Rate 86 86 70 Respiratory Rate 15 15 16 Blood Pressure 121/72 H 121/72 H 138/72 H Blood Pressure Mean 88 88 94 Pulse Ox 98 98 100 Oxygen Delivery Method Room Air Room Air Room Air Weight Weight: 104 lb Body Mass Index (BMI) 20.2 Physical Exam Const alert and no apparent distress Orientation / Consciousness: confused Nutritional Appearance: cachectic HEENT normocephalic and moist oral mucous membranes Eyes PERRL, EOMs intact bilaterally and conjunctivae normal Neck no lymphadenopathy Resp normal respiratory effort and clear to auscultation bilaterally Cardio regular rate, regular rhythm and no murmurs Peripheral Pulses: pulses 2+ throughout GI normal to inspection, nondistended, normoactive bowel sounds, non-tender and non-distended Extremity normal to inspection Skin no rashes or lesions noted Lesions: no lesions Rashes: no rashes Trauma: no lacerations or abrasions Neuro CN's II-XII intact bilaterally, no focal motor deficits, no sensory deficits noted and deep tendon reflexes 2+ bilaterally Psych mental status grossly normal and affect normal Lab / Micro Data Result Diagrams: 07/12/20 15:30 07/12/20 15:30 Labs: Laboratory Results - last 24 hr 07/12/20 07/12/20 07/12/20 15:30 15:30 15:30 WBC 7.8 RBC 3.15 L Hgb 10.9 L Hct 31.9 L MCV 101.3 H MCH 34.6 H MCHC 34.2 RDW Std Deviation 48.2 H RDW Coeff of [place] 13.1 Plt Count 299 MPV 9.8 Immature Gran % (Auto) 0.400 Neut % (Auto) 80.8 H Lymph % (Auto) 9.5 L [place] % (Auto) 7.5 Eos % (Auto) 1.5 Baso % (Auto) 0.3 Absolute Neuts (auto) 6.3 Absolute Lymphs (auto) 0.74 L Nucleated RBC % 0 Sodium 134 L Potassium 3.3 L Chloride 106 Carbon Dioxide 16.0 L Anion Gap 12 BUN 70 H Creatinine 4.68 H Estim Creat Clear Calc 7.00 Est GFR (MDRD) Af Amer 12 L Est GFR (MDRD) Non-Af 10 L BUN/Creatinine Ratio 15.0 Glucose 130 H Lactic Acid 1.6 Calcium 9.1 Total Bilirubin 0.30 AST 22 ALT 18 Alkaline Phosphatase 138 H Troponin I 0.129 H Total Protein 7.3 Albumin 2.9 L Globulin 4.4 H Albumin/Globulin Ratio 0.7 L Urine Color Urine Clarity Urine pH Ur Specific [place] Urine Protein Urine Glucose (UA) Urine Ketones Urine Occult Blood Urine Nitrite Urine Bilirubin Urine Urobilinogen Ur Leukocyte Esterase Urine RBC Urine WBC Ur Squamous Epith Cells Ur Transition Epith Cell Amorphous Sediment Urine Bacteria Hyaline Casts Urine Mucus 07/12/20 16:00 WBC RBC Hgb Hct MCV MCH MCHC RDW Std Deviation RDW Coeff of [place] Plt Count MPV Immature Gran % (Auto) Neut % (Auto) Lymph % (Auto) [place] % (Auto) Eos % (Auto) Baso % (Auto) Absolute Neuts (auto) Absolute Lymphs (auto) Nucleated RBC % Sodium Potassium Chloride Carbon Dioxide Anion Gap BUN Creatinine Estim Creat Clear Calc Est GFR (MDRD) Af Amer Est GFR (MDRD) Non-Af BUN/Creatinine Ratio Glucose Lactic Acid Calcium Total Bilirubin AST ALT Alkaline Phosphatase Troponin I Total Protein Albumin Globulin Albumin/Globulin Ratio Urine Color Yellow Urine Clarity Cloudy Urine pH 5.0 Ur Specific [place] 1.020 Urine Protein 500 H Urine Glucose (UA) Normal Urine Ketones 5 H Urine Occult Blood 10 H Urine Nitrite Negative Urine Bilirubin Negative Urine Urobilinogen Normal Ur Leukocyte Esterase 500 H Urine RBC 0 SEEN Urine WBC 50-100 SEEN Ur Squamous Epith Cells 0-5 SEEN Ur Transition Epith Cell 0-5 SEEN Amorphous Sediment 2+ Urine Bacteria 4+ Hyaline Casts 0-5 SEEN Urine Mucus 0 SEEN Micro: Microbiology 07/12/20 16:05 SARS-CoV-2 Antigen (Rapid) - Final Mucosa - Nasopharyngeal Assessment & Plan Assessment/Plan (1) Acute kidney injury: (2) Diarrhea: (3) Acute UTI: PLAN: 1. BHUMI on CKD stage IV, secondary to intractable diarrhea/poor oral intake-IV fluids. Check stool for C. difficile, enteric pathogen panel. C onsult nephrology, patient follows with Dr. Villalobos. If stool studies negative, can continue as needed Imodium. Trend BMP. As needed Zofran for nausea. PT/OT. 2. Acute UTI-IV Rocephin pending culture. 3. CAD-on aspirin, metoprolol, Brilinta, Zetia. 4. History of TIA-on aspirin, Brilinta. 5. Hypothyroidism-continue Synthroid. 6. Hypertension-continue amlodipine, metoprolol. DVT prophylaxis- Heparin sc CODE STATUS: Discussed with who is HPOA. confirms DNR CCA no intubation. This patient was seen by ROX Davey under the supervision of Dr. Rivero. Documented by User: Dr. Brianne Rivero MD 07/12/20 18:09 HPI - General General Date of Admission: 07/12/20 [facility] Medical History Anemia CAD (coronary artery disease) Coronary artery disease Dementia Dementia Hypertension Hypertension Hypothyroidism Kidney disease TIA (transient ischemic attack) TIA (transient ischemic attack) Home Medications amlodipine 5 mg PO DAILY 06/20/20 [History Last Taken 07/12/20] ezetimibe [Zetia] 10 mg PO QHS 06/20/20 [History Last Taken 07/11/20] levothyroxine [Synthroid] 75 mcg PO DAILY 06/20/20 [History Last Taken 07/12/20] metoprolol succinate 25 mg PO QHS 06/20/20 [History Last Taken 07/11/20] ticagrelor [Brilinta] 90 mg PO BID #60 tab 06/21/20 [Rx Last Taken 07/12/20] aspirin 81 mg PO DAILY 07/12/20 [History Last Taken 07/12/20] Allergy/AdvReac Type Severity Reaction Status Date / Time Penicillins Allergy Hives Verified 07/12/20 15:22 wheat Allergy Angioedema Verified 07/12/20 15:22 Surgical History (Reviewed 07/12/20 @ 17:27 by Ira Ruff [employer], [employer]) History of carpal tunnel release of both wrists History of coronary artery stent placement History of coronary artery stent placement History of herniorrhaphy Social History (Reviewed 07/12/20 @ 17:27 by Ira Ruff [employer], [employer]) household members: significant other housing: apartment number of children: 4 Smoking Status: Never smoker alcohol intake: never substance use type: does not use Lab / Micro Data Result Diagrams: 07/12/20 15:30 07/12/20 15:30 Addendum Addendum: This patient was seen in conjunction with Ira Ruff. I have independently interviewed and examined the patient and reviewed pertinent historical, laboratory, and other data. I have reviewed her note and concur with her documentation 79-year-old with multiple comorbidities including dementia, CAD status post stent, hypertension who comes in with generalized weakness and poor p.o. intake. Patient started having diarrhea about days ago, it was profuse, to call the primary care doctor 2 days later and patient was prescribed Imodium does seem to help. She however has not been eating or drinking well. She has been very weak. This morning she had another episode of large bowel movement, brown, nonbloody, nonmucoid. Denied any sick contact. Denied any travel to foreign places. Denied any new foods. She denied any fever chills or abdominal discomfort. Her vitals in the ED were stable. Physical Exam: Gen: Appears chronically unwell, pleasant, dry oral mucosa, oral candidiasis on the tongue, not pale, not jaundiced CVS:HS I +II, regular, no murmurs RESP: Diminished at lung bases GI: BS present and normal, soft, nontender, no palpable organs EXT:No edema ASSESSMENT: 1. BHUMI on CKD stage IV 2. Hypokalemia 3. Acute diarrhea 4. Probable Acute UTI 5. Debility secondary to the above 6. Chronic troponin elevation likely secondary to chronic kidney disease, trending down compared to previous 7. Oral candidiasis Plan: Admit to MedSurg, IV fluids, Replace potassium, check magnesium Continue IV ceftriaxone, follow-up on urine culture Nephrology consult Would not trend troponins as EKG is unchanged from previous and patient denies any chest pain PT/OT to evaluate and treat Nystatin swish and swallow I discussed and explained in details the various types of CODE STATUS-full code, DNR CCA, DNR CC. Patient's confirmed patient will want to be a DNR-CCA, no intubation Time spent discussing CODE STATUS 1 minutes6 Visit Charges Inpatient E&M: 92364 Init Hosp L3 Procedures Hospitalists Procedures: 29559 Advncd Care Plan 30 Min
[2020-07-12 19:00] VITALS: BP 128/70; PULSE 73; RESP 16; TEMP 36.8; O2SAT 99
[2020-07-12 19:09] LABS: Magnesium 2.1 mg/dL (1.6-2.6)
[2020-07-12 19:46] VITALS: BMI 19.8
[2020-07-12] MEDS: Potassium Chloride Oral Tablet 20 MEQ 40 MEQ PO (19:50)
[2020-07-12 20:21] VITALS: PULSE 76
[2020-07-12] MEDS: NYSTATIN 500,000 UNIT/5 ML UDC 500000 UNIT PO (20:21)
[2020-07-12] MEDS: Ezetimibe 10 MG Tablet PO (20:21)
[2020-07-12] MEDS: Heparin Injection (Vial) 5,000 UNIT/ML VIAL 5000 UNIT SC (20:21)
[2020-07-12] MEDS: TICAGRELOR 90 MG TABLET PO (20:21)
[2020-07-12] MEDS: Metoprolol(XL)Succ 25 MG Tablet PO (20:21)
[2020-07-12 23:20] VITALS: BP 134/61; PULSE 82; RESP 18; TEMP 36.6; O2SAT 100
[2020-07-13] MEDS: 0.9% Normal Saline 1,000 ML 100 ML IV (00:19)
[2020-07-13 05:20] VITALS: BP 137/67; PULSE 78; RESP 16; TEMP 37.1; O2SAT 99
[2020-07-13] MEDS: Heparin Injection (Vial) 5,000 UNIT/ML VIAL 5000 UNIT SC ×2 (05:23→21:07)
[2020-07-13] MEDS: Levothyroxine 75 MCG Tablet PO (05:23)
[2020-07-13 05:25] LABS: Absolute Lymphocyte Count 0.29 X10^3/uL (0.83-4.51); Absolute Neutrophil Count 4.7 X10^3/uL (2.0-7.7); Basophil# 0.01 X10^3/uL; Basophil% 0.2 % (0-1); Eosinophil# 0.11 X10^3/uL; Hematocrit 28.3 % (37-47); Hemoglobin 9.5 g/dL (12.0-15.0); Lymphocyte # 0.29 X10^3/ul (0.83-4.51); Lymphocyte % 5.2 % (19-41); Mean Corp Hgb Conc 33.6 g/dL (32-36); Mean Corpuscular Hgb 33.9 pg (27.0-32.0); Mean Corpuscular Volume 101.1 fL (81-99); Monocyte% 7.2 % (0-10); NRBC Flagged by Analyzer 0 % (0-5); Neutrophil # 4.74 X10^3/uL (2.7-7.7); POSITIVE DIFFERENTIAL YES; Platelet Count 274 K/mm3 (150-450); RBC Distribution Width CV 12.9 % (11.6-14.6); RBC Distribution Width SD 48.3 fl (35.1-43.9); White Blood Count 5.6 K/mm3 (4.4-11.0)
[2020-07-13 05:29] LABS: Differential Indicated SCAN CRITERIA MET
[2020-07-13 05:42] LABS: ALB/GLOB Ratio 0.6 RATIO (0.9-2.4); AST(SGOT) 24 U/L (15-37); Alanine Aminotransfer ALT/SGPT 16 U/L (13-56); Albumin, Serum 2.5 g/dL (3.2-5.0); Alkaline Phosphatase 122 U/L (45-117); Anion Gap 10 (5-15); BUN 68 mg/dL (7-18); BUN/Creat Ratio 16.6 RATIO (10-20); Calcium,Total 8.7 mg/dL (8.5-10.1); Chloride 111 mmol/L (98-107); EST Glomerular Filtration Rate 11 mL/min (>60); Est Glom Filt Rate - Afr Amer 14 mL/min (>60); Estimated Creatinine Clearance 8.06 ml/min; Globulin 3.9 g/dL (2.2-4.2); Glucose 101 mg/dL (74-106); Potassium 3.3 mmol/L (3.5-5.1); Protein, Total 6.4 g/dL (6.4-8.2); Sodium Level 137 mmol/L (136-145)
[2020-07-13 05:59] LABS: Differential Comment SCANNED
[2020-07-13 06:00] LABS: Anisocytosis 1+; Macrocytosis 1+
--- NOTE | 2020-07-13 09:00 | PCM.CONS.R ---
Assessment & Plan Assessment/Plan (1) Acute kidney injury superimposed on CKD: PLAN: likely due to dehydration, diarrhea. Creatinine improved with iv fluids from 4.68 to 4.0. Baseline creatinine 2.5-3.0 (2) CKD stage 4 secondary to hypertension: PLAN: baseline cr 2.5 to 3.0. Discussed dialysis in the office on initial visit. Pt spouse to attend dialysis education as outpt. (3) Hypertension: PLAN: BP stable, proteinuria likely due to arterionephrosclerosis (4) Dehydration: PLAN: continue with fluids iv (5) Diarrhea: PLAN: improving, cdiff negative (6) Anemia: PLAN: hgb 9.5g (7) TIA (transient ischemic attack): PLAN: history with recent hospitalization (8) Dementia: PLAN: chronic HPI Consult Data Date of Consult: 07/13/20 HPI Narrative HPI Narrative: MARIA ELENA WHITE, is a 79 F who is new to my practice seen on consultation on 07/04/20 in the office for CKD stage 4 due to hypertensive nephropathy baseline creatinine 2.5 to 3.0 presents to the Emergency Room for diarrhea and weakness since the weekend, refusing to eat or drink for her .? Patient has a history of dementia and unable to provide HPI. Reviewed chart. Patient began having watery diarrhea on Friday evening into Friday with 10 episodes on Friday.? No bloody stools reported. notified primary care office on Friday morning and they advised him to give patient Imodium which improved her diarrhea.? However, states patient did not have an appetite and was not taking in much fluids.? Creatinine on admit 4.68 improved to 4.0. Currently receiving iv fluids. BP stable. Denies recent travel. No new medications. We had discussions about dialysis in the office and was referred for dialysis education at the initial consultation visit. She has been evaluated by [facility] nephrology dept in the past, recently moved to the area to be closer to children. [facility] Medical History (Updated 07/13/20 @ 10:[address] Kallie Villalobos DO) Anemia Anemia CAD (coronary artery disease) Coronary artery disease Coronary artery disease Dementia Dementia Dementia Hypertension Hypertension Hypertension Hypothyroidism Hypothyroidism Kidney disease Kidney disease Non-smoker Stroke/cerebrovascular accident TIA (transient ischemic attack) TIA (transient ischemic attack) TIA (transient ischemic attack) Home Medications amlodipine 5 mg PO DAILY 06/20/20 [History Last Taken 07/12/20] ezetimibe [Zetia] 10 mg PO QHS 06/20/20 [History Last Taken 07/11/20] levothyroxine [Synthroid] 75 mcg PO DAILY 06/20/20 [History Last Taken 07/12/20] metoprolol succinate 25 mg PO QHS 06/20/20 [History Last Taken 07/11/20] ticagrelor [Brilinta] 90 mg PO BID #60 tab 06/21/20 [Rx Last Taken 07/12/20] aspirin 81 mg PO DAILY 07/12/20 [History Last Taken 07/12/20] Allergy/AdvReac Type Severity Reaction Status Date / Time Penicillins Allergy Hives Verified 07/12/20 15:22 wheat Allergy Angioedema Verified 07/12/20 15:22 Surgical History History of carpal tunnel release of both wrists History of coronary artery stent placement History of coronary artery stent placement History of herniorrhaphy Social History household members: significant other housing: apartment number of children: 4 Smoking Status: Never smoker alcohol intake: never substance use type: does not use ROS Review of Systems ROS Unobtainable: due to mental status and other Details: dementia, pleasant, no distress. Pt spouose at bedside Constitutional Constitutional: Reports malaise and weakness; Denies chills or fever(s) Eyes Eyes: Denies loss of vision Cardiovascular Cardiovascular: Denies chest pain Respiratory/Chest Respiratory/Chest: Denies shortness of breath at rest Gastrointestinal Gastrointestinal: Reports anorexia and diarrhea; Denies abdominal pain, hematochezia, melena, nausea, rectal bleeding or vomiting Genitourinary Genitourinary: Denies difficulty urinating Musculoskeletal Musculoskeletal: Reports other Details: no edema Integumentary Integumentary: Denies rash Neurologic Neurologic: Reports weakness Psychiatric Psychiatric: Reports confusion Hematologic/Lymphatic Hematologic/Lymphatic: Reports anemia Physical Exam Const no apparent distress Constitutional Narrative: dementia, poor historian, awake Orientation / Consciousness: oriented to person and confused Resp clear to auscultation bilaterally Cardio regular rate GI non-tender and non-distended Auscultation: normoactive bowel sounds Palpation: soft Extremity no clubbing, cyanosis or edema Skin no wounds Neuro Neuro Narrative: confused, dementia underlying Sensorium / Orientation: awake and alert Psych cooperative Psych Narrative: cognitive impairment Lab / Micro Data Result Diagrams: 07/13/20 05:12 07/13/20 05:12 Labs: Laboratory Results - last 24 hr 07/12/20 07/12/20 07/12/20 15:30 15:30 15:30 WBC 7.8 RBC 3.15 L Hgb 10.9 L Hct 31.9 L MCV 101.3 H MCH 34.6 H MCHC 34.2 RDW Std Deviation 48.2 H RDW Coeff of [place] 13.1 Plt Count 299 MPV 9.8 Immature Gran % (Auto) 0.400 Neut % (Auto) 80.8 H Lymph % (Auto) 9.5 L [place] % (Auto) 7.5 Eos % (Auto) 1.5 Baso % (Auto) 0.3 Absolute Neuts (auto) 6.3 Absolute Lymphs (auto) 0.74 L Nucleated RBC % 0 Differential Comment Anisocytosis Macrocytosis Sodium 134 L Potassium 3.3 L Chloride 106 Carbon Dioxide 16.0 L Anion Gap 12 BUN 70 H Creatinine 4.68 H Estim Creat Clear Calc 7.00 Est GFR (MDRD) Af Amer 12 L Est GFR (MDRD) Non-Af 10 L BUN/Creatinine Ratio 15.0 Glucose 130 H Lactic Acid 1.6 Calcium 9.1 Magnesium Total Bilirubin 0.30 AST 22 ALT 18 Alkaline Phosphatase 138 H Troponin I 0.129 H Total Protein 7.3 Albumin 2.9 L Globulin 4.4 H Albumin/Globulin Ratio 0.7 L Urine Color Urine Clarity Urine pH Ur Specific [place] Urine Protein Urine Glucose (UA) Urine Ketones Urine Occult Blood Urine Nitrite Urine Bilirubin Urine Urobilinogen Ur Leukocyte Esterase Urine RBC Urine WBC Ur Squamous Epith Cells Ur Transition Epith Cell Amorphous Sediment Urine Bacteria Hyaline Casts Urine Mucus 07/12/20 07/12/20 07/13/20 15:30 16:00 05:12 WBC 5.6 RBC 2.80 L Hgb 9.5 L Hct 28.3 L MCV 101.1 H MCH 33.9 H MCHC 33.6 RDW Std Deviation 48.3 H RDW Coeff of [place] 12.9 Plt Count 274 MPV 10.0 Immature Gran % (Auto) 0.400 Neut % (Auto) 85.0 H Lymph % (Auto) 5.2 L [place] % (Auto) 7.2 Eos % (Auto) 2.0 Baso % (Auto) 0.2 Absolute Neuts (auto) 4.7 Absolute Lymphs (auto) 0.29 L Nucleated RBC % 0 Differential Comment SCANNED Anisocytosis 1+ Macrocytosis 1+ Sodium Potassium Chloride Carbon Dioxide Anion Gap BUN Creatinine Estim Creat Clear Calc Est GFR (MDRD) Af Amer Est GFR (MDRD) Non-Af BUN/Creatinine Ratio Glucose Lactic Acid Calcium Magnesium 2.1 Total Bilirubin AST ALT Alkaline Phosphatase Troponin I Total Protein Albumin Globulin Albumin/Globulin Ratio Urine Color Yellow Urine Clarity Cloudy Urine pH 5.0 Ur Specific [place] 1.020 Urine Protein 500 H Urine Glucose (UA) Normal Urine Ketones 5 H Urine Occult Blood 10 H Urine Nitrite Negative Urine Bilirubin Negative Urine Urobilinogen Normal Ur Leukocyte Esterase 500 H Urine RBC 0 SEEN Urine WBC 50-100 SEEN Ur Squamous Epith Cells 0-5 SEEN Ur Transition Epith Cell 0-5 SEEN Amorphous Sediment 2+ Urine Bacteria 4+ Hyaline Casts 0-5 SEEN Urine Mucus 0 SEEN 07/13/20 07/13/20 05:12 05:12 WBC RBC Hgb Hct MCV MCH MCHC RDW Std Deviation RDW Coeff of [place] Plt Count MPV Immature Gran % (Auto) Neut % (Auto) Lymph % (Auto) [place] % (Auto) Eos % (Auto) Baso % (Auto) Absolute Neuts (auto) Absolute Lymphs (auto) Nucleated RBC % Differential Comment Anisocytosis Macrocytosis Sodium 137 Potassium 3.3 L Chloride 111 H Carbon Dioxide 16.0 L Anion Gap 10 BUN 68 H Creatinine 4.10 H Estim Creat Clear Calc 8.06 Est GFR (MDRD) Af Amer 14 L Est GFR (MDRD) Non-Af 11 L BUN/Creatinine Ratio 16.6 Glucose 101 Lactic Acid Calcium 8.7 Magnesium Total Bilirubin 0.20 AST 24 ALT 16 Alkaline Phosphatase 122 H Troponin I 0.202 H Total Protein 6.4 Albumin 2.5 L Globulin 3.9 Albumin/Globulin Ratio 0.6 L Urine Color Urine Clarity Urine pH Ur Specific [place] Urine Protein Urine Glucose (UA) Urine Ketones Urine Occult Blood Urine Nitrite Urine Bilirubin Urine Urobilinogen Ur Leukocyte Esterase Urine RBC Urine WBC Ur Squamous Epith Cells Ur Transition Epith Cell Amorphous Sediment Urine Bacteria Hyaline Casts Urine Mucus Micro: Microbiology 07/13/20 00:00 C. difficile DNA Amplification - Final Stool 07/12/20 16:05 SARS-CoV-2 Antigen (Rapid) - Final Mucosa - Nasopharyngeal
[2020-07-13] MEDS: Aspirin E.C. 81 MG Tablet PO (09:01)
[2020-07-13] MEDS: 0.45% Normal Saline 1,000 ML 100 ML IV ×2 (09:01→19:22)
[2020-07-13] MEDS: Potassium Chloride Oral Tablet 20 MEQ 40 MEQ PO (09:01)
[2020-07-13 09:23] VITALS: BP 131/62; PULSE 72; RESP 16; TEMP 36.7; O2SAT 99
--- NOTE | 2020-07-13 09:53 | CASEMGMT ---
Patient has a Healthcare Power of Lacquerer and a Healthcare Living Will on file at [facility]. Her Reji is her Healthcare Power of Lacquerer. Tenisha Jimenez MSW LEE
--- NOTE | 2020-07-13 10:45 | US_ITS ---
STUDY: RENAL ULTRASOUND - COMPLETE REASON FOR EXAM: Female, 79 years old. ckd TECHNIQUE: Ultrasound evaluation of the kidneys was performed with real-time and static smith-scale imaging. COMPARISON: None. FINDINGS: Technically limited exam. Extensive bowel gas. RIGHT KIDNEY: Normal location of the right kidney, which is normal in size. The right kidney measures 9.0 x 3.8 x 3.7 cm. There is diffusely echogenic and heterogeneous cortex of the right kidney. The renal cortex measures 1.2 cm. Multiple renal cysts are seen. Largest is 2.9 cm. There are no right renal calculi. There is no right hydronephrosis. DISTAL RIGHT URETER: There is non-visualization of the distal right ureter. There is no demonstrated right ureterovesical junction calculus. There is no demonstrated right ureteral jet. LEFT KIDNEY: Normal location of the left kidney, with moderate to severe renal atrophy. The left kidney measures 7.0 x 3.5 x 3.6 cm. There is diffusely echogenic and heterogeneous cortex of the left kidney. The renal cortex measures 1.2 cm. Multiple renal cysts are seen. Largest is 1.7 cm. There are no left renal calculi. There is no left hydronephrosis. DISTAL LEFT URETER: There is non-visualization of the distal left ureter. There is no demonstrated left ureterovesical junction calculus. There is no demonstrated left ureteral jet. BLADDER: The urinary bladder has a volume of 90 ml. There is a normal wall thickness of the distended urinary bladder. There is no demonstrated mass within the urinary bladder. There are no demonstrated bladder calculi. US/Kidney and Bladder IMPRESSION: Bilateral echogenic kidneys consistent with chronic medical renal disease. Chronic atrophy of the left kidney. No definite acute abnormalities. Electronically Signed: Reji Akbar MD at 16:42 EDT , Service support ,
--- NOTE | 2020-07-13 10:45 | CASEMGMT ---
DALJIT BARRON assessment: Face to Face with patient for initial transition planning/care coordination assessment. DALJIT BARRON introduced self and role at [facility], pt voices understanding and consents to assessment.? Pt is sitting up in bed pleasantly confused with hx dementia. is at bedside and answers all questions for pt at this time. Care providers, pharmacy,?and demographics verified. ? Presentation: Pt sent in for dehydration r/t diarrhea Admitting dx: BHUMI, UTI PCP: Geena Specialists: keron Villalobos Preferred Pharmacy: [facility] Insurance: [facility] Prescription Benefit:?[facility] Living Will/HPOA: Pt has LW/HPOA and is aware that they are on file at [facility]. Pt's , Eulogio Garnica, is listed as HPOA. LNOK: Eulogio Garnica, Living Arrangements: Pt lives with in mobile home with 3 steps in and states no concerns at home. states pt is independent with most ADL's but he does assist when needed. Transportation: Pt's drives and states no transportation concerns. DME/HHC: Pt has the following DME: w/c, grab bars, and shower chair. states no need for any further DME. Pt has no hx of HHC or SNF. states no concerns with going home at time of discharge. Pt is retired. Pt does not smoke cigarettes or drink ETOH. voice no further concerns/needs. CM to follow for PT/OT evals and any further discharge planning/needs. Advised pt to ask for CM if any further questions/concerns/needs arise, voices understanding. ? Pt Goal: Home Plan[place] DALJIT BARRON
[2020-07-13] MEDS: Ceftriaxone 1 GM/50 ML BAG IV (10:50)
[2020-07-13] MEDS: NYSTATIN 500,000 UNIT/5 ML UDC 500000 UNIT PO ×3 (10:56→21:07)
[2020-07-13 11:02] VITALS: BP 149/79; PULSE 80; RESP 16; TEMP 37.2; O2SAT 98
[2020-07-13] MEDS: amLODIPine 5 MG Tablet PO (11:05)
[2020-07-13] MEDS: TICAGRELOR 90 MG TABLET PO ×2 (11:05→21:07)
--- NOTE | 2020-07-13 12:37 | PN.HOSP_ITS ---
Documented by User: Zachariah PINO 07/13/20 12:46 Objective Data Objective Data Vital Signs: Vital Signs Temp Pulse Resp BP Pulse Ox 98.9 F 80 16 149/79 H 98 07/13/20 11:02 07/13/20 11:02 07/13/20 11:02 07/13/20 11:02 07/13/20 11:02 Oxygen Delivery Method Room Air Weight: 98 lb 5.219 oz Body Mass Index (BMI) 19.8 Intake & Output: Intake and Output for Last 24 Hours 07/11/20 07/12/20 07/13/20 23:59 23:59 23:59 Intake Total 751.25 / 751.25 1423.33 / 1423.33 Output Total 250 / 250 Balance 501.25 / 501.25 1423.33 / 1423.33 Lab / Micro Data Result Diagrams: 07/13/20 05:12 07/13/20 05:12 Labs: Laboratory Results - last 24 hr 07/12/20 07/12/20 07/12/20 15:30 15:30 15:30 WBC 7.8 RBC 3.15 L Hgb 10.9 L Hct 31.9 L MCV 101.3 H MCH 34.6 H MCHC 34.2 RDW Std Deviation 48.2 H RDW Coeff of [place] 13.1 Plt Count 299 MPV 9.8 Immature Gran % (Auto) 0.400 Neut % (Auto) 80.8 H Lymph % (Auto) 9.5 L [place] % (Auto) 7.5 Eos % (Auto) 1.5 Baso % (Auto) 0.3 Absolute Neuts (auto) 6.3 Absolute Lymphs (auto) 0.74 L Nucleated RBC % 0 Differential Comment Anisocytosis Macrocytosis Sodium 134 L Potassium 3.3 L Chloride 106 Carbon Dioxide 16.0 L Anion Gap 12 BUN 70 H Creatinine 4.68 H Estim Creat Clear Calc 7.00 Est GFR (MDRD) Af Amer 12 L Est GFR (MDRD) Non-Af 10 L BUN/Creatinine Ratio 15.0 Glucose 130 H Lactic Acid 1.6 Calcium 9.1 Magnesium Total Bilirubin 0.30 AST 22 ALT 18 Alkaline Phosphatase 138 H Troponin I 0.129 H Total Protein 7.3 Albumin 2.9 L Globulin 4.4 H Albumin/Globulin Ratio 0.7 L Urine Color Urine Clarity Urine pH Ur Specific [place] Urine Protein Urine Glucose (UA) Urine Ketones Urine Occult Blood Urine Nitrite Urine Bilirubin Urine Urobilinogen Ur Leukocyte Esterase Urine RBC Urine WBC Ur Squamous Epith Cells Ur Transition Epith Cell Amorphous Sediment Urine Bacteria Hyaline Casts Urine Mucus 07/12/20 07/12/20 07/13/20 15:30 16:00 05:12 WBC 5.6 RBC 2.80 L Hgb 9.5 L Hct 28.3 L MCV 101.1 H MCH 33.9 H MCHC 33.6 RDW Std Deviation 48.3 H RDW Coeff of [place] 12.9 Plt Count 274 MPV 10.0 Immature Gran % (Auto) 0.400 Neut % (Auto) 85.0 H Lymph % (Auto) 5.2 L [place] % (Auto) 7.2 Eos % (Auto) 2.0 Baso % (Auto) 0.2 Absolute Neuts (auto) 4.7 Absolute Lymphs (auto) 0.29 L Nucleated RBC % 0 Differential Comment SCANNED Anisocytosis 1+ Macrocytosis 1+ Sodium Potassium Chloride Carbon Dioxide Anion Gap BUN Creatinine Estim Creat Clear Calc Est GFR (MDRD) Af Amer Est GFR (MDRD) Non-Af BUN/Creatinine Ratio Glucose Lactic Acid Calcium Magnesium 2.1 Total Bilirubin AST ALT Alkaline Phosphatase Troponin I Total Protein Albumin Globulin Albumin/Globulin Ratio Urine Color Yellow Urine Clarity Cloudy Urine pH 5.0 Ur Specific [place] 1.020 Urine Protein 500 H Urine Glucose (UA) Normal Urine Ketones 5 H Urine Occult Blood 10 H Urine Nitrite Negative Urine Bilirubin Negative Urine Urobilinogen Normal Ur Leukocyte Esterase 500 H Urine RBC 0 SEEN Urine WBC 50-100 SEEN Ur Squamous Epith Cells 0-5 SEEN Ur Transition Epith Cell 0-5 SEEN Amorphous Sediment 2+ Urine Bacteria 4+ Hyaline Casts 0-5 SEEN Urine Mucus 0 SEEN 07/13/20 07/13/20 05:12 05:12 WBC RBC Hgb Hct MCV MCH MCHC RDW Std Deviation RDW Coeff of [place] Plt Count MPV Immature Gran % (Auto) Neut % (Auto) Lymph % (Auto) [place] % (Auto) Eos % (Auto) Baso % (Auto) Absolute Neuts (auto) Absolute Lymphs (auto) Nucleated RBC % Differential Comment Anisocytosis Macrocytosis Sodium 137 Potassium 3.3 L Chloride 111 H Carbon Dioxide 16.0 L Anion Gap 10 BUN 68 H Creatinine 4.10 H Estim Creat Clear Calc 8.06 Est GFR (MDRD) Af Amer 14 L Est GFR (MDRD) Non-Af 11 L BUN/Creatinine Ratio 16.6 Glucose 101 Lactic Acid Calcium 8.7 Magnesium Total Bilirubin 0.20 AST 24 ALT 16 Alkaline Phosphatase 122 H Troponin I 0.202 H Total Protein 6.4 Albumin 2.5 L Globulin 3.9 Albumin/Globulin Ratio 0.6 L Urine Color Urine Clarity Urine pH Ur Specific [place] Urine Protein Urine Glucose (UA) Urine Ketones Urine Occult Blood Urine Nitrite Urine Bilirubin Urine Urobilinogen Ur Leukocyte Esterase Urine RBC Urine WBC Ur Squamous Epith Cells Ur Transition Epith Cell Amorphous Sediment Urine Bacteria Hyaline Casts Urine Mucus Micro: Microbiology 07/12/20 16:00 Urine Catheter - Catheter Urine Culture - Preliminary 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 difficile DNA Amplification - Final 07/12/20 16:05 Mucosa - Nasopharyngeal SARS-CoV-2 Antigen (Rapid) - Final Assessment & Plan Assessment/Plan (1) Diarrhea: (2) Acute UTI: (3) Acute kidney injury: (4) Debility: PLAN: 1) BHUMI on CKD stage IV, secondary to intractable diarrhea/poor oral intake-IV fluids. Currently 4.1, improved from admission. Baseline between 2.5 and 3. Likely secondary to dehydration from diarrhea. Nephrology following. C. difficile and enteric stool panel negative. Plan; continue fluids, Imodium as needed and Zofran as needed. 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 Plan; continue Rocephin, obtain ultrasound of the kidney and bladder. 3) CAD Continue aspirin, metoprolol, Brilinta, Zetia. 4) History of TIA Continue aspirin and Brilinta. 5) Hypothyroidism Continue Synthroid. 6) Hypertension Continue amlodipine. 7) Debility PT/OT eval and treatment ordered. Case management following; no needs i dentified at this time. DVT prophylaxis- Heparin OK Patient seen by Zachariah Boland PA-C, under the supervision of Dr. Villalobos. Documented by User: Dr. Olga Villalobos DO 07/13/20 14:26 Subjective Subjective Patient was seen in conjunction with ALVAREZ Ferraro and I agree with the above. The following is a representation of my independent history and physical examination. Patient has difficulty with expressing her symptoms given her marked dementia. No issues overnight. Objective Data Lab / Micro Data Result Diagrams: 07/13/20 05:12 07/13/20 05:12 Physical Exam Const alert and no apparent distress Constitutional Narrative: Older white female sitting up in bed, nursing at bedside, patient with fairly significant dementia and is unable to express how she is feeling, only oriented to self Exam Limitations: other limitations HEENT head/scalp atraumatic and moist oral mucous membranes Head and Scalp: normocephalic Eyes PERRL, EOMs intact bilaterally and conjunctivae normal Resp normal respiratory effort, no retractions, no use of accessory muscles and clear to auscultation bilaterally Auscultation: Negative for crackles, rales, rhonchi or wheezes Cardio regular rate, regular rhythm, S1 normal heart sound, S2 normal heart sound, no murmurs, no rub, no gallops, no clicks and no JVD GI normal to inspection, nondistended, normoactive bowel sounds, soft to palpation, non-tender and non-distended Extremity normal to inspection and no clubbing, cyanosis or edema Peripheral Pulses: Yes pulses 2+ throughout Skin no rashes or lesions noted, no wounds, skin turgor normal, no jaundice, no petechiae and no mottling Neuro CN's II-XII intact bilaterally and moves all extremities Neuro Narrative: Patient is a somewhat slow to respond Sensorium / Orientation: awake, alert and oriented to person; Negative for oriented to place or oriented to time Assessment & Plan Assessment/Plan (1) Diarrhea: (2) Acute UTI: (3) Acute kidney injury superimposed on CKD: PLAN: Acute urinary tract infection secondary to 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 difficile is negative -Enteric panel is negative -Add Imodium if this is a continued issue Hypokalemia Oral thrush -Continue nystatin 500,000 units 4 times daily for 7 days Non-anion gap metabolic acidosis -Suspect related to renal failure -Should improve as renal function improves, if not we will consider adding sodium bicarbonate tablets -BMP in a.m. Elevated troponin -Likely related to infection and BHUMI on CKD -Appears to be stable when compared with previous admissions/lab -No further evaluation needed at this time Hypertension -Continue amlodipine 5 mg daily -Continue metoprolol 25 mg nightly Hypothyroidism -Continue Synthroid 75 mics daily Hyperlipidemia -Continue Zetia 10 mg nightly CAD Continue aspirin and Brilinta Recent TIA -Continue aspirin -Risk factor modification -PT/OT consultation Dementia -Suspect vascular given history of stroke/TIA -Patient appears to be fairly advanced upon evaluation -We will consult palliative care for assistance at home after discharge -No current hospice needs Debility -PT/OT DVT prophylaxis -Continue heparin 5000 units subcu every 8 hours CODE STATUS -DNR CCA no intubation Visit Charges Inpatient E&M: 61211 Subs Hosp L2
--- NOTE | 2020-07-13 13:21 | CASEMGMT ---
DALJIT BARRON NOTE: Pt qualifies for a Palliative referral per the [facility] palliative screening tool at this time. Dr Villalobos aware and states ok for Palliative c/s at this time. Order placed. Palliative updated at this time via VM. Face Sheet faxed to Palliative at this time. Greg REN RN CM
--- NOTE | 2020-07-13 14:26 | EX.NTREPO ---
Medical Nutrition Therapy - History Current diet/nutrition support order:: Regular; Ensure enlive 120mL PO 4x/day. - Anthropometric Measurements Height:: 4 ft 11.84 in Weight:: 44.6 kg - Relevant Labs Relevant Labs:: RBC 2.80 M/mm3 (4.2-5.4) L 07/13/20 05:12 Hgb 9.5 g/dL (12.0-15.0) L 07/13/20 05:12 Hct 28.3 % (37-47) L 07/13/20 05:12 MCV 101.1 fL (81-99) H 07/13/20 05:12 MCH 33.9 pg (27.0-32.0) H 07/13/20 05:12 RDW Std Deviation 48.3 fl (35.1-43.9) H 07/13/20 05:12 Neut % (Auto) 85.0 % (47-70) H 07/13/20 05:12 Lymph % (Auto) 5.2 % (19-41) L 07/13/20 05:12 Absolute Lymphs (auto) 0.29 X10^3/uL (0.83-4.51) L 07/13/20 05:12 Sodium 134 mmol/L (136-145) L 07/12/20 15:30 Potassium 3.3 mmol/L (3.5-5.1) L 07/13/20 05:12 Chloride 111 mmol/L (98-107) H 07/13/20 05:12 Carbon Dioxide 16.0 mmol/L (21.0-32.0) L 07/13/20 05:12 BUN 68 mg/dL (7-18) H 07/13/20 05:12 Creatinine 4.10 mg/dL (0.55-1.02) H 07/13/20 05:12 Est GFR (MDRD) Af Amer 14 mL/min (>60) L 07/13/20 05:12 Est GFR (MDRD) Non-Af 11 mL/min (>60) L 07/13/20 05:12 Glucose 130 mg/dL (74-106) H 07/12/20 15:30 Alkaline Phosphatase 122 U/L (45-117) H 07/13/20 05:12 Troponin I 0.202 ng/mL (<0.045) H 07/13/20 05:12 Albumin 2.5 g/dL (3.2-5.0) L 07/13/20 05:12 Globulin 4.4 g/dL (2.2-4.2) H 07/12/20 15:30 Albumin/Globulin Ratio 0.6 RATIO (0.9-2.4) L 07/13/20 05:12 - Assessment Food and Nutrient Intake: Seen in conjunction w/ R. Meeta, media intern. Pt appeared confused and wasn't able to hold a conversation at time of meeting. Pt consumed <25% of breakfast. Pt's body weight on 06/21/20 was 104# and current body weight is 98# representing weight loss of 7#/6% in 3 weeks-significant for severe malnutrition. Per H&P, family reported poor oral intake w/ significant episodes of diarrhea [employer]. - Nutrition Diagnosis: Clinical Problem Acute Disease or Injury Related Malnutrition Clinical Problem - Etiology: severe, acute malnutrition r/t predicted inadequate oral intake w/ recent acute diarrheal illness Clinical Problem - Signs/Symptoms: as evidenced by consumption of </=50% of estimated energy requirements for greater than 5 days and weight loss of 7#/6% in 3 weeks. - Protein Calorie Malnutrition Evidence of Malnutrition Exists: Yes Severe Protein Calorie Malnutrition:: Acute Illness/Injury - Nutrition Intervention Nutrition Prescription: 1,300-1,400 kcal/day (RMR x 1.3). Protein 40-50g/day (1.0g/kg). Fluid 1,500-1,600mL/day (35mL/kg) - Food / Nutrient Delivery Interventions Summary of nutrition intervention:: Provide oral nutrition supplement Nutrition support ordered as / adjusted to:: Continue regular-general diet. Continue ensure enlive 120mL PO 4x/day at [employer]. Add magic cup BID at lunch and dinner. - MNT Monitoring Active Nutrition Patient: Yes Nutrition Status: Requires Follow Up 3-5 Days
[2020-07-13 15:38] VITALS: BP 116/57; PULSE 72; RESP 12; TEMP 37; O2SAT 98
[2020-07-13 21:06] VITALS: BP 116/63; PULSE 72; RESP 18; TEMP 36.9; O2SAT 97
[2020-07-13 21:07] VITALS: PULSE 72
[2020-07-13] MEDS: Metoprolol(XL)Succ 25 MG Tablet PO (21:07)
[2020-07-13] MEDS: Ezetimibe 10 MG Tablet PO (21:07)
[2020-07-14 03:05] VITALS: BP 132/65; PULSE 72; RESP 18; TEMP 37; O2SAT 97
[2020-07-14] MEDS: Heparin Injection (Vial) 5,000 UNIT/ML VIAL 5000 UNIT SC ×3 (05:41→20:30)
[2020-07-14] MEDS: 0.45% Normal Saline 1,000 ML 100 ML IV ×2 (05:41→16:04)
[2020-07-14] MEDS: Levothyroxine 75 MCG Tablet PO (05:42)
[2020-07-14 06:03] LABS: Absolute Lymphocyte Count 0.93 X10^3/uL (0.83-4.51); Basophil# 0.01 X10^3/uL; Basophil% 0.2 % (0-1); Eosinophil# 0.26 X10^3/uL; Eosinophils% 4.6 % (0-5); Hematocrit 26.4 % (37-47); Hemoglobin 8.7 g/dL (12.0-15.0); Lymphocyte # 0.93 X10^3/ul (0.83-4.51); Lymphocyte % 16.3 % (19-41); Mean Corpuscular Hgb 33.9 pg (27.0-32.0); Mean Corpuscular Volume 102.7 fL (81-99); Mean Platelet Vol. 10.2 fl (6.2-12.0); Monocyte# 0.45 X10^3/uL; Monocyte% 7.9 % (0-10); NRBC Flagged by Analyzer 0 % (0-5); Neutrophil # 4.01 X10^3/uL (2.7-7.7); Neutrophil % 70.5 % (47-70); POSITIVE MORPHOLOGY YES; Platelet Count 272 K/mm3 (150-450); RBC Distribution Width CV 13.2 % (11.6-14.6); RBC Distribution Width SD 49.4 fl (35.1-43.9); Red Blood Count 2.57 M/mm3 (4.2-5.4); White Blood Count 5.7 K/mm3 (4.4-11.0)
[2020-07-14 06:08] LABS: Differential Indicated SCAN CRITERIA MET
[2020-07-14 06:29] LABS: Anion Gap 11 (5-15); BUN 64 mg/dL (7-18); BUN/Creat Ratio 15.7 RATIO (10-20); Calcium,Total 8.6 mg/dL (8.5-10.1); Chloride 110 mmol/L (98-107); Creatinine, Serum 4.07 mg/dL (0.55-1.02); EST Glomerular Filtration Rate 11 mL/min (>60); Est Glom Filt Rate - Afr Amer 14 mL/min (>60); Estimated Creatinine Clearance 7.89 ml/min; Glucose 98 mg/dL (74-106); Potassium 2.9 mmol/L (3.5-5.1); Sodium Level 135 mmol/L (136-145)
[2020-07-14 06:32] LABS: Differential Comment SCANNED
[2020-07-14 06:33] LABS: Acanthocytes RARE; Anisocytosis 1+; Atypical Lymphocyte 1+ %; Macrocytosis 1+; Ovalocyte RARE
[2020-07-14 08:30] VITALS: BP 114/56; PULSE 62; RESP 18; TEMP 37.2; O2SAT 97
[2020-07-14] MEDS: Aspirin E.C. 81 MG Tablet PO (08:52)
[2020-07-14] MEDS: amLODIPine 5 MG Tablet PO (08:52)
[2020-07-14] MEDS: NYSTATIN 500,000 UNIT/5 ML UDC 500000 UNIT PO ×2 (08:52→20:29)
[2020-07-14] MEDS: TICAGRELOR 90 MG TABLET PO ×2 (08:52→20:30)
[2020-07-14] MEDS: Potassium Chloride Oral Tablet 20 MEQ 60 MEQ PO (08:57)
[2020-07-14] MEDS: Sodium Bicarbonate 650 MG Tablet PO ×3 (11:11→20:30)
[2020-07-14] MEDS: Ceftriaxone 1 GM/50 ML BAG IV (11:11)
--- NOTE | 2020-07-14 11:41 | PCM.PN.HOSP ---
Documented by User: Zachariah PINO 07/14/20 11:53 Subjective Subjective Patient is a 79-year-old female comfortably resting in bed, alert and oriented x1. Patient unable to provide insight into current status due to baseline dementia. Appears more comfortable relative to yesterday, is able to answer some questions appropriately. Objective Data Objective Data Vital Signs: Vital Signs Temp Pulse Resp BP Pulse Ox 99.0 F 62 18 114/56 L 97 07/14/20 08:30 07/14/20 08:30 07/14/20 08:30 07/14/20 08:30 07/14/20 08:30 Oxygen Delivery Method Room Air Weight: 98 lb 5.219 oz Body Mass Index (BMI) 19.8 Intake & Output: Intake and Output for Last 24 Hours 07/12/20 07/13/20 07/14/20 23:59 23:59 23:59 Intake Total 751.25 / 751.25 3133.33 / 3253.33 1730 / 1730 Output Total 250 / 250 600 / 600 Balance 501.25 / 501.25 2533.33 / 2653.33 1730 / 1730 Lab / Micro Data Result Diagrams: 07/14/20 05:34 07/14/20 05:34 Labs: Laboratory Results - last 24 hr 07/14/20 07/14/20 05:34 05:34 WBC 5.7 RBC 2.57 L Hgb 8.7 L Hct 26.4 L MCV 102.7 H MCH 33.9 H MCHC 33.0 RDW Std Deviation 49.4 H RDW Coeff of [place] 13.2 Plt Count 272 MPV 10.2 Immature Gran % (Auto) 0.500 Neut % (Auto) 70.5 H Lymph % (Auto) 16.3 L [place] % (Auto) 7.9 Eos % (Auto) 4.6 Baso % (Auto) 0.2 Absolute Neuts (auto) 4.0 Absolute Lymphs (auto) 0.93 Nucleated RBC % 0 Differential Comment SCANNED Atypical Lymphocytes 1+ Anisocytosis 1+ Macrocytosis 1+ Ovalocytes RARE Acanthocytes (Spur) RARE Sodium 135 L Potassium 2.9 L Chloride 110 H Carbon Dioxide 14.0 L Anion Gap 11 BUN 64 H Creatinine 4.07 H Estim Creat Clear Calc 7.89 Est GFR (MDRD) Af Amer 14 L Est GFR (MDRD) Non-Af 11 L BUN/Creatinine Ratio 15.7 Glucose 98 Calcium 8.6 Micro: Microbiology 07/12/20 16:00 Urine Catheter - Catheter Urine Culture - Final Escherichia coli 07/12/20 23:15 Stool Enteric Bacteriology - Final 07/13/20 00:00 Stool C. difficile DNA Amplification - Final 07/12/20 16:05 Mucosa - Nasopharyngeal SARS-CoV-2 Antigen (Rapid) - Final Physical Exam Narrative See subjective. Const alert, oriented x3 and no apparent distress HEENT head/scalp atraumatic and moist oral mucous membranes Head and Scalp: normocephalic Eyes EOMs intact bilaterally and conjunctivae normal Neck no lymphadenopathy, supple and no JVD Resp normal respiratory effort, no retractions, no use of accessory muscles and clear to auscultation bilaterally Cardio regular rate, regular rhythm, no murmurs and no JVD GI normal to inspection, nondistended, normoactive bowel sounds, soft to palpation, non-tender and non-distended Extremity normal to inspection, full ROM and no clubbing, cyanosis or edema Skin no rashes or lesions noted, no wounds and no jaundice Neuro CN's II-XII intact bilaterally Psych affect normal Assessment & Plan Assessment/Plan (1) Debility: (2) Dementia: (3) Acute kidney injury: (4) Acute UTI: (5) TIA (transient ischemic attack): (6) Hypothyroidism: (7) Hypertension: (8) Acute kidney injury superimposed on CKD: (9) Dehydration: (10) Diarrhea: PLAN: See subjective for patient presentation. Patient appears symptomatically improved from yesterday. Home health care being set up by case management/social work and patient will return home at discharge. Anticipate discharge tomorrow 07/15. 1) BHUMI on CKD stage IV, secondary to intractable diarrhea/poor oral intake-IV fluids. Currently 4.07, improved from admission. Baseline between 2.5 and 3. Likely secondary to dehydration from diarrhea. Nephrology following. C. difficile and enteric stool panel negative. Plan; continue fluids, Imodium as needed and Zofran as needed. 2) Acute UTI Urine culture demonstrates E. Coli. Plan; continue Rocephin, obtain ultrasound of the kidney and bladder. 3) CAD Continue aspirin, metoprolol, Brilinta, Zetia. 4) History of TIA Continue aspirin and Brilinta. 5) Hypothyroidism Continue Synthroid. 6) Hypertension Continue amlodipine. 7) Debility PT/OT recommends home therapy. Home health care being set up by case management/social work. Walker ordered for ambulatory assistance. 8) Oral thrush Continue nystatin. 9) Diarrhea C. difficile and enteric panel are negative. Likely cause of patient's hypokalemia. Plan; Imodium as needed. 10) Hypokalemia Currently 2.9, likely secondary to diarrhea. Plan; K-Dur 40 mEq p.o. daily ordered. DVT prophylaxis- Heparin SC Patient seen by Zachariah Boland PA-C, under the supervision of Dr. Villalobos. Documented by User: Dr. Olga Villalobos DO 07/14/20 13:18 Subjective Subjective Patient was seen in conjunction with ALVAREZ Ferraro. I agree with the above and the following is representation my independent history and physical examination. Patient had no issues overnight. She is really unable to give any meaningful subjective information with her severe dementia. Objective Data Lab / Micro Data Result Diagrams: 07/14/20 05:34 07/14/20 05:34 Physical Exam Const alert and no apparent distress Constitutional Narrative: Older white female who appears much older than stated age, sitting up in a chair at the bedside, unable to give much input secondary to dementia oriented only to self Orientation / Consciousness: confused Exam Limitations: other limitations HEENT normocephalic, head/scalp atraumatic and moist oral mucous membranes Head and Scalp: normocephalic Resp normal respiratory effort, no retractions, no use of accessory muscles and clear to auscultation bilaterally Auscultation: Negative for crackles, rales, rhonchi or wheezes Cardio regular rate, regular rhythm, S1 normal heart sound, S2 normal heart sound, no murmurs, no rub, no gallops, no clicks and no JVD Peripheral Pulses: pulses 2+ throughout GI normal to inspection, nondistended, normoactive bowel sounds, soft to palpation, non-tender and non-distended Extremity normal to inspection and no clubbing, cyanosis or edema Skin Lesions: no lesions Rashes: no rashes Trauma: no lacerations or abrasions Neuro CN's II-XII intact bilaterally, moves all extremities, no focal motor deficits, no sensory deficits noted and deep tendon reflexes 2+ bilaterally Neuro Narrative: Patient is a somewhat slow to respond Sensorium / Orientation: awake, alert and oriented to person; Negative for oriented to place or oriented to time Psych mental status grossly normal Psych Narrative: Pleasantly confused Assessment & Plan Assessment/Plan (1) Acute kidney injury: (2) Acute UTI: (3) Acute kidney injury superimposed on CKD: (4) Metabolic acidosis: (5) CKD stage 4 secondary to hypertension: PLAN: Assessment Acute E. coli urinary tract infection Diarrhea BHUMI on CKD stage IV Nonanion gap metabolic acidosis secondary to CKD Chronic anemia secondary to renal disease Hyponatremia Hypokalemia Chronic hypertension Hyperlipidemia CAD Hypothyroidism Plan E. coli is pansensitive-> switch antibiotics from ceftriaxone to oral Keflex 250 mg twice daily for renal dosing -Potassium supplementation with repeat BMP in a.m. -Check magnesium level again -Add sodium bicarb tablets 650 4 times daily -Diarrhea has improved--> no more than 1 bowel movement documented daily -C. difficile and enteric stool pathogens are negative -Add as needed Imodium -Appreciate nephrology input -Probable discharge in next 24 to 48 hours with home health Visit Charges Inpatient E&M: [id number] [facility] Hosp L2
--- NOTE | 2020-07-14 12:14 | PN.RENAL_ITS ---
Subjective Subjective no nausea, vomiting, diarrhea persists. Denies abdominal pain. Pt spouse at bedside. Creatinine remains elevated. Still on iv fluids. Replacing low K of 2.9. Objective Data Objective Data Vital Signs: Vital Signs Temp Pulse Resp BP Pulse Ox 99.0 F 62 18 114/56 L 97 07/14/20 08:30 07/14/20 08:30 07/14/20 08:30 07/14/20 08:30 07/14/20 08:30 Oxygen Delivery Method Room Air Weight: 44.6 kg Body Mass Index (BMI) 19.8 Intake & Output: Intake and Output for Last 24 Hours 07/12/20 07/13/20 07/14/20 23:59 23:59 23:59 Intake Total 751.25 / 751.25 3133.33 / 3253.33 1730 / 1730 Output Total 250 / 250 600 / 600 Balance 501.25 / 501.25 2533.33 / 2653.33 1730 / 1730 Lab / Micro Data Result Diagrams: 07/14/20 05:34 07/14/20 05:34 Labs: Laboratory Results - last 24 hr 07/14/20 07/14/20 05:34 05:34 WBC 5.7 RBC 2.57 L Hgb 8.7 L Hct 26.4 L MCV 102.7 H MCH 33.9 H MCHC 33.0 RDW Std Deviation 49.4 H RDW Coeff of [place] 13.2 Plt Count 272 MPV 10.2 Immature Gran % (Auto) 0.500 Neut % (Auto) 70.5 H Lymph % (Auto) 16.3 L [place] % (Auto) 7.9 Eos % (Auto) 4.6 Baso % (Auto) 0.2 Absolute Neuts (auto) 4.0 Absolute Lymphs (auto) 0.93 Nucleated RBC % 0 Differential Comment SCANNED Atypical Lymphocytes 1+ Anisocytosis 1+ Macrocytosis 1+ Ovalocytes RARE Acanthocytes (Spur) RARE Sodium 135 L Potassium 2.9 L Chloride 110 H Carbon Dioxide 14.0 L Anion Gap 11 BUN 64 H Creatinine 4.07 H Estim Creat Clear Calc 7.89 Est GFR (MDRD) Af Amer 14 L Est GFR (MDRD) Non-Af 11 L BUN/Creatinine Ratio 15.7 Glucose 98 Calcium 8.6 Micro: Microbiology 07/12/20 16:00 Urine Catheter - Catheter Urine Culture - Final Escherichia coli 07/12/20 23:15 Stool Enteric Bacteriology - Final 07/13/20 00:00 Stool C. difficile DNA Amplification - Final 07/12/20 16:05 Mucosa - Nasopharyngeal SARS-CoV-2 Antigen (Rapid) - Final Physical Exam Const alert Constitutional Narrative: poor historian, dementia General Appearance: cooperative, comfortable and frail Orientation / Consciousness: confused Nutritional Appearance: thin Resp clear to auscultation bilaterally Cardio regular rate and no rub GI non-tender GI Narrative: mild distension Auscultation: normoactive bowel sounds Palpation: soft Extremity full ROM and no clubbing, cyanosis or edema Skin General Skin Exam: Negative for purpura Neuro moves all extremities Neuro Narrative: poor historian, dementia Sensorium / Orientation: awake Motor Exam: no tremor Psych cooperative Assessment & Plan Assessment/Plan (1) Acute kidney injury superimposed on CKD: PLAN: lCreatinine unchanged at 4.0. Continue to monitor with iv fluids. No urgency to initiate dialysis. (2) CKD stage 4 secondary to hypertension: PLAN: baseline cr 2.5 to 3.0. Discussed dialysis in the office on initial visit. Pt spouse to attend dialysis education as outpt. (3) Hypertension: PLAN: BP stable, proteinuria likely due to arterionephrosclerosis (4) Dehydration: PLAN: continue with fluids iv (5) Diarrhea: PLAN: persists, cdiff negative. Mild distension. PT poor historian. Denies abominal pain. Consider KUB. Defer to primary service mgmt (6) Anemia: PLAN: hgb 9.5g (7) TIA (transient ischemic attack): PLAN: history with recent hospitalization (8) Dementia: PLAN: chronic (9) Hypokalemia: PLAN: replacing, recheck later today after supplementation (10) Metabolic acidosis: PLAN: replace bicarb loss from GI, diarrhea, and CKD
[2020-07-14] MEDS: Loperamide 2 MG Capsule PO (12:26)
--- NOTE | 2020-07-14 13:23 | PCM.CONS.P ---
Assessment & Plan Assessment/Plan (1) Debility: (2) Dehydration: (3) Dementia: QUALIFIERS: Dementia behavioral disturbance: without behavioral disturbance Dementia type: unspecified type Qualified Code(s): F03.90 - Unspecified dementia without behavioral disturbance (4) CKD stage 4 secondary to hypertension: (5) Acute kidney injury superimposed on CKD: (6) Anemia: QUALIFIERS: Anemia type: unspecified type Qualified Code(s): D64.9 - Anemia, unspecified (7) Abdominal pain: QUALIFIERS: Abdominal location: generalized Qualified Code(s): R10.84 - Generalized abdominal pain (8) Vomiting: QUALIFIERS: Nausea presence: with nausea Vomiting Intractability: unspecified Vomiting type: unspecified Qualified Code(s): R11.2 - Nausea with vomiting, unspecified (9) Acute UTI: (10) Diarrhea: QUALIFIERS: Diarrhea type: unspecified type Qualified Code(s): R19.7 - Diarrhea, unspecified (11) Hypertension: QUALIFIERS: Hypertension type: renovascular hypertension Qualified Code(s): I15.0 - Renovascular hypertension (12) Hypothyroidism: QUALIFIERS: Hypothyroidism type: unspecified Qualified Code(s): E03.9 - Hypothyroidism, unspecified (13) Hypokalemia: PLAN: 79-year-old female with dementia, recent TIA, seen today for initial palliative care consultation secondary to debility and weakness, nausea and vomiting, and dementia. 1. Weakness and debility: Multifactorial, she has had a recent TIA, now acute UTI and diarrhea. CKD stage IV. She is receiving IV fluids. Continue with therapy, plan is to discharge home with the use of a walker. 2. Dementia appears to be fairly advanced, I would put her at a FAST stage 6c. She is still able to ambulate, but does better when she is around her spouse. When therapy is in there, she is assist x2. Otherwise, she is standby assist with contact-guard. 3. Abdominal pain: Resolved 4. Anemia/CKD stage IV/hypothyroidism/HTN/hypokalemia: Complicates overall care, management, recovery, and prognosis. Defer management to PCP and specialists. Thank you for the opportunity to participate in this patient's care, please do not hesitate to contact [facility] with any further questions or concerns. Palliative direct line is [phone]. We will follow up approximately 3 days after discharge to home and will discuss palliative services further at that time. Contact information given to . Discussed having it liaison come out for more information, he is agreeable. Greater than 50% of F2F visit dedicated to education and counseling of palliative care services, medications, comorbid conditions and potential assistance with management, and plan of care moving forward. Start time:1317 End time: 1406 HPI Consult Data Date of Consult: 07/14/20 HPI Narrative HPI Narrative: MARIA ELENA WHITE, is a 79 F who presented to [facility] with complaints of a 4-day history of diarrhea. PCP had advised to take Imodium, diarrhea almost resolved then had another significant episode of watery diarrhea. There was concern for dehydration. Patient also has progressive weakness. She has dementia and has been is her caregiver. Patient just hospitalized 06/19-06/21/2020 with a TIA. At that time, it was noted patient had an extensive work-up at the [facility] about a year ago for concerns with TIA and dementia. She was to be on Namenda and Aricept, however spouse reported cost of medication was too high and since the medications were not curative, did not pursue filling this. Patient was switched from Plavix to Brilinta and was to follow-up with neurology as an outpatient. She then presented back to the ED 07/02 with nausea and vomiting, possible dark blood in the emesis. She was given Zofran as needed and recommended to drink plenty of fluids and rest. Patient is being treated for BHUMI on CKD stage IV with intractable diarrhea and poor oral intake. She has received IV fluids. Nephrology was consulted. Patient has seen Dr. Villalobos in the past, notes that they have discussed dialysis at her initial visit and spouse to attend dialysis education as an outpatient. PT/OT are recommending home therapy, case management is working on setting up home health care. She will likely need a walker upon discharge. Patient lives with her spouse, Reji in a mobile home with 3 steps to enter. He is her HCPOA. She is independent with most ADLs but he does assist more frequently the last few weeks. DME in the home include a wheelchair, grab bars, and shower chair. He drives her to appointments. C. difficile was negative. She continues to have abdominal discomfort and mild distention. Considering doing a KUB. Hemoglobin has went from 10.9 on the to 8.7 today, suspect this is dilutional. Her potassium is being replaced. BUN and creatinine today were 64 and 4.07. Patient is a DNR CCA with no intubation. [facility] Medical History (Updated 07/14/20 @ 13:38 by Theresa Rivera NP-C) Anemia Anemia CAD (coronary artery disease) Coronary artery disease Coronary artery disease Dementia Dementia Dementia Hypertension Hypertension Hypertension Hypothyroidism Hypothyroidism Kidney disease Kidney disease Non-smoker Stroke/cerebrovascular accident TIA (transient ischemic attack) TIA (transient ischemic attack) TIA (transient ischemic attack) Home Medications amlodipine 5 mg PO DAILY 06/20/20 [History Last Taken 07/12/20] ezetimibe [Zetia] 10 mg PO QHS 06/20/20 [History Last Taken 07/11/20] levothyroxine [Synthroid] 75 mcg PO DAILY 06/20/20 [History Last Taken 07/12/20] metoprolol succinate 25 mg PO QHS 06/20/20 [History Last Taken 07/11/20] ticagrelor [Brilinta] 90 mg PO BID #60 tab 06/21/20 [Rx Last Taken 07/12/20] aspirin 81 mg PO DAILY 07/12/20 [History Last Taken 07/12/20] Allergy/AdvReac Type Severity Reaction Status Date / Time Penicillins Allergy Hives Verified 07/12/20 15:22 wheat Allergy Angioedema Verified 07/12/20 15:22 Surgical History History of carpal tunnel release of both wrists History of coronary artery stent placement History of coronary artery stent placement History of herniorrhaphy Social History household members: significant other housing: apartment number of children: 4 Smoking Status: Never smoker alcohol intake: never substance use type: does not use ROS ROS Narrative Patient sitting up in chair, no complaints. She does not seem to understand simple questions and gives 1 word answers. She looks to her for guidance. She denies any N/V/D, however nursing tells me she had an episode of diarrhea today. No abdominal pain. No chest pain or shortness of breath. Review of Systems ROS Unobtainable: due to mental status Physical Exam Const alert and no apparent distress General Appearance: cooperative, comfortable and well kempt Orientation / Consciousness: oriented to person HEENT normocephalic and head/scalp atraumatic Eyes General Eye: normal appearance of both eyes Neck supple General: trachea midline Resp normal respiratory effort and normal air movement Effort and Inspection: Negative for respiratory distress Cardio regular rate, S1 normal heart sound and S2 normal heart sound Cardio Narrative: ectopy noted GI soft to palpation Auscultation: hyperactive bowel sounds Palpation: tender LLQ and RLQ Extremity no clubbing, cyanosis or edema Skin no rashes or lesions noted Skin Narrative: ecchymosis to arms Neuro no focal motor deficits Neuro Narrative: limited neuro exam 2/2 cognitive deficits Sensorium / Orientation: confused Psych cooperative Attitude: calm Speech: minimal Memory / Cognition: memory grossly impaired and dementia
--- NOTE | 2020-07-14 14:00 | CASEMGMT ---
DALJIT BARRON NOTE: PT/OT has worked w/pt w/ present and he observed how well pt was doing today. DALJIT CM to room to talk w/pt's . made aware additional therapy recommended. He declines wanting SNF and wishes to take pt home to take care of her. Discussed option of HHC and he is agreeable. He states does not want an aide for bathing/dressing at this time. He was provided with list of [facility] providers including quality and resource use data and consistent with the patient's preferred geographic region, medical needs, and insurance network. The husbands preferred provider is [facility]. states he would also like a walker for pt. Therapy informed this RN ANDERSON that pt could benefit from a walker. given a list of DME co's consistent with the patient's medical needs and insurance network. The states [employer]. Call placed to Varun @ [facility] and referral made. He was made aware anticipate discharge Sat or Sun. He states they are able to accept pt and SOC will be the day after discharge. [place] [facility] [place] to [facility]. She was made aware anticipate discharge Sat or Sun. She states they will deliver walker to pt's room today. . made aware [facility] able to accept and SOC will be the day after discharge. He has their contact info. He was also made aware [facility] [place] to pt's room today. also provided w/list of local agencies for Private Duty Aides and also info/card on [employer]/support group. voices appreciation for this information. He states he has been interested in finding a support group of some kind. Offered to make referral to the support group, but he declines at this time. He states he will look over the info first and contact them when ready. He voices appreciation and denies having any further questions/needs/concerns at this time. Green sheet placed on chart w/instructions for notifying [facility] @ discharge. Greg REN RN, CM
[2020-07-14 16:00] VITALS: BP 128/64; PULSE 67; RESP 18; TEMP 36.9; O2SAT 100
[2020-07-14 19:11] LABS: Anion Gap 12 (5-15); BUN 65 mg/dL (7-18); BUN/Creat Ratio 17.1 RATIO (10-20); Calcium,Total 8.9 mg/dL (8.5-10.1); Chloride 111 mmol/L (98-107); EST Glomerular Filtration Rate 12 mL/min (>60); Est Glom Filt Rate - Afr Amer 15 mL/min (>60); Estimated Creatinine Clearance 8.45 ml/min; Glucose 89 mg/dL (74-106); Potassium 3.4 mmol/L (3.5-5.1); Sodium Level 136 mmol/L (136-145)
[2020-07-14 20:29] VITALS: BP 140/70; PULSE 62; RESP 18; TEMP 37.4; O2SAT 97
[2020-07-14] MEDS: Ezetimibe 10 MG Tablet PO (20:29)
[2020-07-14 20:30] VITALS: PULSE 62
[2020-07-14] MEDS: Metoprolol(XL)Succ 25 MG Tablet PO (20:30)
[2020-07-15] MEDS: 0.45% Normal Saline 1,000 ML 100 ML IV (02:38)
[2020-07-15 02:40] VITALS: BP 111/55; PULSE 53; RESP 16; TEMP 36.7; O2SAT 97
[2020-07-15] MEDS: Heparin Injection (Vial) 5,000 UNIT/ML VIAL 5000 UNIT SC (05:21)
[2020-07-15] MEDS: Levothyroxine 75 MCG Tablet PO (05:21)
[2020-07-15 06:17] LABS: Magnesium 1.9 mg/dL (1.6-2.6)
[2020-07-15] MEDS: TICAGRELOR 90 MG TABLET PO (09:11)
[2020-07-15] MEDS: Potassium Chloride Oral Tablet 20 MEQ 40 MEQ PO (09:11)
[2020-07-15] MEDS: Aspirin E.C. 81 MG Tablet PO (09:11)
[2020-07-15] MEDS: Cephalexin 250 MG Capsule PO (09:12)
[2020-07-15] MEDS: amLODIPine 5 MG Tablet PO (09:12)
[2020-07-15] MEDS: Sodium Bicarbonate 650 MG Tablet PO (09:12)
[2020-07-15 09:17] VITALS: BP 134/66; PULSE 58; RESP 14; TEMP 37.2; O2SAT 99
[2020-07-15] MEDS: NYSTATIN 500,000 UNIT/5 ML UDC 500000 UNIT PO (09:20)
[2020-07-15 10:04] LABS: Anion Gap 12 (5-15); BUN 61 mg/dL (7-18); BUN/Creat Ratio 16.7 RATIO (10-20); Calcium,Total 9.3 mg/dL (8.5-10.1); Chloride 114 mmol/L (98-107); Creatinine, Serum 3.66 mg/dL (0.55-1.02); EST Glomerular Filtration Rate 13 mL/min (>60); Est Glom Filt Rate - Afr Amer 15 mL/min (>60); Estimated Creatinine Clearance 9.46 ml/min; Glucose 89 mg/dL (74-106); Potassium 3.5 mmol/L (3.5-5.1); Sodium Level 138 mmol/L (136-145)
--- NOTE | 2020-07-15 11:01 | PCM.DC ---
Discharge Instructions Diet Discharge Diet: No restrictions Activity Discharge Activity: Return to Normal Activity Follow Up Care Please Follow Up With: Primary care provider When: Within the next two weeks. Test Results: Test results from this visit will be discussed in further detail at your follow-up appointment, if applicable. Discharge Plan Admission Admit Date/Time: 07/12/20 16:52 Primary Reason for Your Visit: Diarrhea and weakness Attending Provider: Olga Villalobos Primary Care Provider: Zachariah Seay Consulting Providers: Kallie Villalobos ; Kika Blanchard ; Ap Rogers ; Katie Weeks ; Theresa Rivera ; Umm Melendrez ; Kimi Che PRODUCT ADVISOR Discharge Orders/Prescriptions Prescriptions: New cephalexin 250 mg capsule 250 mg PO DAILY Qty: 7 RF: 0 nystatin 100,000 unit/mL suspension 500,000 unit PO .4 times daily 7 Days Qty: 140 RF: 0 Continued amlodipine 5 mg Tablet 5 mg PO DAILY RF: 0 levothyroxine [Synthroid] 75 mcg Tablet 75 mcg PO DAILY RF: 0 metoprolol succinate 25 mg tablet extended release 24 hr 25 mg PO QHS RF: 0 ezetimibe [Zetia] 10 mg Tablet 10 mg PO QHS RF: 0 Brilinta 90 mg Tablet 90 mg PO BID Qty: 60 RF: 1 aspirin 81 mg Tablet,Delayed Release (Dr/Ec) 81 mg PO DAILY RF: 0 Referrals / Follow Up: Zachariah Seay MD [Primary Care Provider] - Disposition Disposition (needs filled in before D/C Order can be placed): Home, self care
--- NOTE | 2020-07-15 14:26 | DS.PCM_ITS ---
Documented by User: Zachariah PINO 07/15/20 14:40 Providers Date of Admission: 07/12/20 Primary Care Physician: Dr. Zachariah Seay MD Consultations 07/12/20 19:22 Consult: Nephrology Routine Consulting Provider: Kallie Villalobos Reason for Consult: BHUMI on CKD stage 4 EMERGENT Consult: No MD Notified: Yes Date Notified:: 07/13/20 Time Notified: 06:39 Method of Notification: Text 07/14/20 11:15 Consult: Hospice / Palliative Care Routine Consulting Provider: [facility] Reason for Consult: Palliative consult for at home assistance. 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 Code(s): I12.9 - Hypertensive chronic kidney disease with stage 1 through stage 4 chronic kidney disease, or unspecified chronic kidney disease; N18.4 - Chronic kidney disease, stage 4 (severe) (5) Acute kidney injury superimposed on CKD: Status: Chronic Code(s): N17.9 - Acute kidney failure, unspecified; N18.9 - Chronic kidney disease, unspecified (6) Anemia: Status: Acute Code(s): D64.9 - Anemia, unspecified Qualifiers: Anemia type: unspecified type Qualified Code(s): D64.9 - Anemia, unspecified (7) Abdominal pain: Status: Acute Code(s): R10.9 - Unspecified abdominal pain Qualifiers: Abdominal location: generalized Qualified Code(s): R10.84 - Generalized abdominal pain (8) Vomiting: Status: Acute Code(s): R11.10 - Vomiting, unspecified Qualifiers: Nausea presence: with nausea Vomiting Intractability: unspecified Vomiting type: unspecified Qualified Code(s): R11.2 - Nausea with vomiting, unspecified (9) Acute UTI: Status: Acute Code(s): N39.0 - Urinary tract infection, site not specified (10) Diarrhea: Status: Acute Code(s): R19.7 - Diarrhea, unspecified Qualifiers: Diarrhea type: unspecified type Qualified Code(s): R19.7 - Diarrhea, unspecified (11) Hypertension: Status: Chronic Code(s): I10 - Essential (primary) hypertension Qualifiers: Hypertension type: renovascular hypertension Qualified Code(s): I15.0 - Renovascular hypertension (12) Hypothyroidism: Status: Acute Code(s): E03.9 - Hypothyroidism, unspecified Qualifiers: Hypothyroidism type: unspecified Qualified Code(s): E03.9 - Hypothyroidism, unspecified (13) Hypokalemia: Status: Acute Code(s): E87.6 - Hypokalemia Medications at Discharge Home Medications amlodipine 5 mg PO DAILY 06/20/20 ezetimibe [Zetia] 10 mg PO QHS 06/20/20 levothyroxine [Synthroid] 75 mcg PO DAILY 06/20/20 metoprolol succinate 25 mg PO QHS 06/20/20 Brilinta 90 mg PO BID #60 tab 06/21/20 aspirin 81 mg PO DAILY 07/12/20 cephalexin 250 mg PO DAILY #7 cap 07/15/20 nystatin 500,000 unit PO .4 times daily 7 Days #140 ml 07/15/20 sodium bicarbonate 650 mg PO .4 times daily PRN #30 tab 07/15/20 Hospital Course Summary of Care Provided Minutes Spent on Discharge: 35 Hospital Course: See subjective for patient presentation. Patient unable to provide much insight into her condition due to chronic confusion secondary to dementia. Talked with patient's at discharge and informed him of plan. Patient's agreeable to plan, however was unhappy that he had not been able to talk to attending physician. Informed patient's that attending physician makes rounds early in the morning and that I personally relayed all information to him each day over the course of his 's admission after talking with attending physician. Alerted attending physician to patient's 's concerns, attending physician met with patient's to answer any concerns. 1) BHUMI on CKD stage IV, secondary to intractable diarrhea/poor oral intake-IV fluids. Currently 4.07, improved from admission. Baseline between 2.5 and 3. Likely secondary to dehydration from diarrhea. Nephrology following. C. difficile and enteric stool panel negative. Plan; continue fluids, Imodium as needed and Zofran as needed. 2) Acute UTI Urine culture demonstrates E. Coli. Ultrasound of the kidney and bladder demonstrated no acute findings, only chronic atrophy of the left kidney secondary to chronic kidney disease. Plan; discharged on cefdinir 30 mg p.o. twice daily x7 days. 3) CAD Continue aspirin, metoprolol, Brilinta, Zetia. 4) History of TIA Continue aspirin and Brilinta. 5) Hypothyroidism Continue Synthroid. 6) Hypertension Continue amlodipine. 7) Debility PT/OT recommends home therapy. Home health care being set up by case management/social work. Walker ordered for ambulatory assistance. 8) Oral thrush Continue nystatin at discharge x 1wk. 9) Diarrhea C. difficile and enteric panel are negative. Patient and nursing report that diarrhea is still present, however patient cannot make it to restroom and Imodium prescription is improving symptoms. Likely cause of patient's hypokalemia. Plan; Imodium OTC. 10) Hypokalemia Resolved, currently 3.5. Patient seen by Zachariah Boland PA-C, under the supervision of Dr. Villalobos. Physical Exam Narrative Patient is a 79-year-old female comfortably resting in bed, alert and oriented x3. Patient cannot provide much insight into her status as she is chronically confused secondary to her dementia. Patient appears subjectively well. Const alert, oriented x3 and no apparent distress HEENT normocephalic, head/scalp atraumatic, hearing grossly normal bilaterally and [address] oral mucous membranes Eyes PERRL, EOMs intact bilaterally and conjunctivae normal Neck no lymphadenopathy, supple and no JVD Resp normal respiratory effort, no retractions, no use of accessory muscles and clear to auscultation bilaterally Cardio regular rate, regular rhythm, no murmurs and no JVD GI normal to inspection, nondistended, normoactive bowel sounds, soft to palpation, non-tender and non-distended GI Narrative: Mild diarrhea at discharge, improved from admission. Extremity normal to inspection Skin no rashes or lesions noted, no wounds and skin turgor normal Neuro CN's II-XII intact bilaterally Psych affect normal ABG / Lab / Microbiology Data Result Diagrams: 07/14/20 05:34 07/15/20 05:32 Laboratory: Laboratory Results - last 24 hr 07/14/20 07/15/20 07/15/20 18:42 05:23 05:32 Sodium 136 138 Potassium 3.4 L 3.5 Chloride 111 H 114 H Carbon Dioxide 13.0 L 12.0 L Anion Gap 12 12 BUN 65 H 61 H Creatinine 3.80 H 3.66 H Estim Creat Clear Calc 8.45 9.46 Est GFR (MDRD) Af Amer 15 L 15 L Est GFR (MDRD) Non-Af 12 L 13 L BUN/Creatinine Ratio 17.1 16.7 Glucose 89 89 Calcium 8.9 9.3 Magnesium 1.9 Microbiology: Microbiology 07/12/20 16:00 Urine Catheter - Catheter Urine Culture - Final Escherichia coli 07/12/20 23:15 Stool Enteric Bacteriology - Final 07/13/20 00:00 Stool C. difficile DNA Amplification - Final 07/12/20 16:05 Mucosa - Nasopharyngeal SARS-CoV-2 Antigen (Rapid) - Final Radiography Diagnostic Testing: Radiology Impression Renal Ultrasound 07/13/20 10:45 IMPRESSION: Bilateral echogenic kidneys consistent with chronic medical renal disease. Chronic atrophy of the left kidney. No definite acute abnormalities. Electronically Signed: Reji Akbar MD at 16:42 EDT , Service support , D/C Instructions Discharge Diet: No restrictions Discharge Activity: Return to Normal Activity Please Follow Up With: Primary care provider When: Within the next two weeks. Meaningful Use Info Meaningful Use Diagnoses (Choose all that apply): None applicable Discharge Plan Admission Admit Date/Time: 07/12/20 16:52 Primary Reason for Your Visit: Diarrhea and weakness Attending Provider: Olga Villalobos Primary Care Provider: Zachariah Seay Consulting Providers: Kallie Villalobos ; Kika Blanchard ; Ap Rogers ; Katie Weeks ; Theresa Rivera ; Umm Melendrez ; Kimi Che SLITTING MACHINE OPERATOR HELPER Instructions Additional Instructions / Restrictions: Patient Problems: Altered Health Status related to Hospitalization Patient Goals: *Optimal Level of Health *Keep Appointments *Medication Compliance *Remain Safe Discharge Orders/Prescriptions Prescriptions: New cephalexin 250 mg capsule 250 mg PO DAILY Qty: 7 RF: 0 nystatin 100,000 unit/mL suspension 500,000 unit PO .4 times daily 7 Days Qty: 140 RF: 0 sodium bicarbonate 650 mg tablet 650 mg PO .4 times daily PRN (Reason: stomach upset) Qty: 30 RF: 0 Continued amlodipine 5 mg Tablet 5 mg PO DAILY RF: 0 levothyroxine [Synthroid] 75 mcg Tablet 75 mcg PO DAILY RF: 0 metoprolol succinate 25 mg tablet extended release 24 hr 25 mg PO QHS RF: 0 ezetimibe [Zetia] 10 mg Tablet 10 mg PO QHS RF: 0 Brilinta 90 mg Tablet 90 mg PO BID Qty: 60 RF: 1 aspirin 81 mg Tablet,Delayed Release (Dr/Ec) 81 mg PO DAILY RF: 0 Referrals / Follow Up: Zachariah Seay MD [Primary Care Provider] - (Please call to schedule follow up appointment) Disposition Disposition (needs filled in before D/C Order can be placed): Home, self care Documented by User: Dr. Olga Villalobos DO 07/15/20 15:00 Providers Date of Admission: 07/12/20 Reason For Visit: BHUMI/UTI Medications at Discharge Home Medications amlodipine 5 mg PO DAILY 06/20/20 ezetimibe [Zetia] 10 mg PO QHS 06/20/20 levothyroxine [Synthroid] 75 mcg PO DAILY 06/20/20 metoprolol succinate 25 mg PO QHS 06/20/20 Brilinta 90 mg PO BID #60 tab 06/21/20 aspirin 81 mg PO DAILY 07/12/20 cephalexin 250 mg PO DAILY #7 cap 07/15/20 nystatin 500,000 unit PO .4 times daily 7 Days #140 ml 07/15/20 sodium bicarbonate 650 mg PO .4 times daily PRN #30 tab 07/15/20 Hospital Course Operations None Procedures None and - (Renal ultrasound) Summary of Care Provided Minutes Spent on Discharge: 26 Hospital Course: Mrs. Garnica is a 79-year-old white female who has a history of dementia who presented to the emergency department [facility] on 07/12/2020 with diarrhea and weakness. Her provided the history in the emergency department and reported she began having watery diarrhea on Friday evening into Friday with 10 episodes on Friday the weekend prior to admission. He denied blood or mucus in her stool. Her primary care's recommendation was to give her Imodium which did in turn improve her diarrhea however her was concerned because she did not have an appetite and was not taking in much p.o. fluids. He took her to the emergency department at the recommendation of her primary care physician for further evaluation. Her renal function on admission had worsened from a baseline of approximately 3 to 4.68. She was markedly hypokalemic on admission with a potassium of 2.9. This had resolved at discharge supplementation and I suspect was related to her diarrhea prior to admission. C. difficile was assessed and was negative. Enteric stool panel was performed and was negative. During her hospitalization she had approximately 1 bowel movement per day. And no further diarrhea. Her oral intake had improved and at discharge her creatinine had improved to 3.6 with adequate p.o. intake for liquids. She was initiated on bicarb for her metabolic acidosis related to her BHUMI on CKD and a prescription was written for this at discharge. He was evaluated by Physical and Occupational Therapy and that recommendation was for continued therapy with home health. She was also ev aluated by nephrology and palliative care during her hospitalization. A urine culture was obtained on admission and the patient was treated initially with empiric antibiotics. Her urine culture resulted positive for pansensitive E. coli and she was discharged to continue treatment with Keflex. Renal ultrasound was performed and showed bilateral echogenic kidneys consistent with chronic medical renal disease, chronic atrophic left kidney and no other acute abnormalities. With improved renal function, p.o. intake, and treatment of her infection it was felt that she was stable for discharge. The patient was seen in conjunction with ALVAREZ Ferraro and he discussed the case daily with thi ocampo's . On the day of discharge he requested to speak to me directly. Prior to discharge all his questions were answered and the expectation for antibiotics were discussed and he voiced understanding regarding the Keflex. She will need to follow-up with her primary care physician within 1 week. I would recommend a repeat BMP in this time. And she will need to follow-up with nephrology as directed by Dr. Kallie Villalobos. Physical Exam Const alert and no apparent distress Constitutional Narrative: Older white female who appears much older than stated age, sitting up in bed watching television, oriented only to self, pleasantly confused General Appearance: cooperative and comfortable Orientation / Consciousness: confused Exam Limitations: other limitations Nutritional Appearance: cachectic HEENT normocephalic, head/scalp atraumatic, moist oral mucous membranes and oropharynx normal Mouth: oral and palatal mucosa normal Eyes PERRL, EOMs intact bilaterally and conjunctivae normal Neck no lymphadenopathy Resp normal respiratory effort, no retractions, no use of accessory muscles and clear to auscultation bilaterally Auscultation: Negative for crackles, rales, rhonchi or wheezes Cardio regular rate, regular rhythm, S1 normal heart sound, S2 normal heart sound, no murmurs, no rub, no gallops, no clicks and no JVD Peripheral Pulses: pulses 2+ throughout GI normal to inspection, nondistended, normoactive bowel sounds, soft to palpation, non-tender and non-distended Extremity normal to inspection and no clubbing, cyanosis or edema Skin no rashes or lesions noted, no wounds, skin turgor normal, no jaundice, no petechiae and no mottling Skin Narrative: Pale skin Lesions: no lesions Rashes: no rashes Trauma: no lacerations or abrasions Neuro CN's II-XII intact bilaterally, moves all extremities, no focal motor deficits, no sensory deficits noted and deep tendon reflexes 2+ bilaterally Neuro Narrative: Patient remains pleasantly confused, confabulates with speech, thought process not linear Sensorium / Orientation: awake, alert and oriented to person; Negative for oriented to place or oriented to time Psych mental status grossly normal Psych Narrative: Pleasantly confused ABG / Lab / Microbiology Data Result Diagrams: 07/14/20 05:34 07/15/20 05:32 Discharge Plan Admission Admit Date/Time: 07/12/20 16:52 Primary Reason for Your Visit: Diarrhea and weakness Attending Provider: Olga Villalobos Primary Care Provider: Zachariah Seay Consulting Providers: Kallie Villalobos ; Kika Blanchard ; Ap Rogers ; Katie Weeks ; Theresa Rivera ; Umm Melendrez ; Kimi hCe SLITTING MACHINE OPERATOR HELPER Instructions Additional Instructions / Restrictions: Patient Problems: Altered Health Status related to Hospitalization Patient Goals: *Optimal Level of Health *Keep Appointments *Medication Compliance *Remain Safe Discharge Orders/Prescriptions Prescriptions: New cephalexin 250 mg capsule 250 mg PO DAILY Qty: 7 RF: 0 nystatin 100,000 unit/mL suspension 500,000 unit PO .4 times daily 7 Days Qty: 140 RF: 0 sodium bicarbonate 650 mg tablet 650 mg PO .4 times daily PRN (Reason: stomach upset) Qty: 30 RF: 0 Continued amlodipine 5 mg Tablet 5 mg PO DAILY RF: 0 levothyroxine [Synthroid] 75 mcg Tablet 75 mcg PO DAILY RF: 0 metoprolol succinate 25 mg tablet extended release 24 hr 25 mg PO QHS RF: 0 ezetimibe [Zetia] 10 mg Tablet 10 mg PO QHS RF: 0 Brilinta 90 mg Tablet 90 mg PO BID Qty: 60 RF: 1 aspirin 81 mg Tablet,Delayed Release (Dr/Ec) 81 mg PO DAILY RF: 0 Referrals / Follow Up: Zachariah Seay MD [Primary Care Provider] - (Please call to schedule follow up appointment) Disposition Disposition (needs filled in before D/C Order can be placed): Home, self care Visit Charges Inpatient E&M: 64113 Disch Hosp
--- NOTE | 2020-07-18 15:26 | CASEMGMT ---
Addendum entered by Danisha Hills 07/19/20 11:55: Pt called this CM back. He states pt is doing well and that she is able to walk and getting better each day. He states [facility] has called him a couple of times but he was unable to answer the phone. He states he will call them after this call. He had questions regarding the [facility], explained qualifications of and which disciplines were ordered. Pt was able to pharmacy picking tech scripts without difficulty. He state the follow up appt with has been made for next Friday. Pt did have concern regarding visiting hours and family unable to visit when doctors rounded. He denied need to speak to patient advocate, but asked this CM to pass along the information. Pt denied further needs. Original Note: N CM Discharge Follow Up Phone Call: EFRAÍNE: 12 Strata: 3 Call Date: 07.18.20 Discharge Date: 07.15.20 Time of Call: 1525 Duration: <1 min Admitting Dx: BHUMI, UTI RN CM attempted to complete follow up phone call after recent hospitalization. Left message on identified voicemail with call back information.
== END 2020-07-15 13:58 | disposition home or self-care (01) | DRG 640 ==
LOC: ED 16:43 → PCU 17:23
PROVIDERS: Physician Assistant; Admitting Provider Internal Medicine; Emergency Provider Emergency Medicine; PCP Family Medicine; Visit Provider Internal Medicine
DX: E86.0 Dehydration (principal); E43 Unspecified severe protein-calorie malnutrition; N17.9 Acute kidney failure, unspecified; N39.0 Urinary tract infection, site not specified; B37.0 Candidal stomatitis; Z68.1 Body mass index [BMI] 19.9 or less, adult; N18.4 Chronic kidney disease, stage 4 (severe); E87.2 Acidosis; E87.1 Hypo-osmolality and hyponatremia; B96.20 Unspecified Escherichia coli [E. coli] as the cause of diseases classified elsewhere; I44.7 Left bundle-branch block, unspecified; R19.7 Diarrhea, unspecified; D63.1 Anemia in chronic kidney disease; R53.81 Other malaise; E03.9 Hypothyroidism, unspecified; E78.5 Hyperlipidemia, unspecified; E87.6 Hypokalemia; F03.90 Unspecified dementia, unspecified severity, without behavioral disturbance, psychotic disturbance, mood disturbance, and anxiety; I12.9 Hypertensive chronic kidney disease with stage 1 through stage 4 chronic kidney disease, or unspecified chronic kidney disease; I25.10 Atherosclerotic heart disease of native coronary artery without angina pectoris; Z86.73 Personal history of transient ischemic attack (TIA), and cerebral infarction without residual deficits; Z95.5 Presence of coronary angioplasty implant and graft; Z79.82 Long term (current) use of aspirin; Z79.899 Other long term (current) drug therapy; Z66 Do not resuscitate; Z79.02 Long term (current) use of antithrombotics/antiplatelets
CPT/HCPCS: 36415; 76770; 80048; 80053; 81001; 83605; 83735; 84484; 85025; 87077; 87086; 87088; 87186; 87426; 87493; 87506; 93005; 97110; 97162; 97166; 97530; 97535; 97802; 99284; J7030; A4216

== ENCOUNTER → 2020-07-25 15:41 | Outpatient (CLI) | payer MEDICARE, SELFPAY ==
[2020-07-12 19:46] VITALS: BMI 19.8
[2020-07-25 18:14] LABS: Anion Gap 7 (5-15); BUN 48 mg/dL (7-18); BUN/Creat Ratio 15.1 RATIO (10-20); Calcium,Total 8.9 mg/dL (8.5-10.1); Chloride 117 mmol/L (98-107); Creatinine, Serum 3.17 mg/dL (0.55-1.02); EST Glomerular Filtration Rate 15 mL/min (>60); Est Glom Filt Rate - Afr Amer 18 mL/min (>60); Glucose 71 mg/dL (74-106); Magnesium 2.1 mg/dL (1.6-2.6); Potassium 4.1 mmol/L (3.5-5.1); Sodium Level 142 mmol/L (136-145)
== END ==
PROVIDERS: PCP Family Medicine; Visit Provider Family Medicine
DX: E87.6 Hypokalemia (principal)
CPT/HCPCS: 36415; 80048; 83735

== ENCOUNTER → 2020-08-08 14:14 | Outpatient (CLI) | payer MEDICARE, SELFPAY ==
[2020-07-12 19:46] VITALS: BMI 19.8
[2020-08-08 17:53] LABS: Hematocrit 27.8 % (37-47); Hemoglobin 8.7 g/dL (12.0-15.0); Mean Corp Hgb Conc 31.3 g/dL (32-36); Mean Corpuscular Hgb 33.9 pg (27.0-32.0); Mean Corpuscular Volume 108.2 fL (81-99); Mean Platelet Vol. 10.4 fl (6.2-12.0); Platelet Count 230 K/mm3 (150-450); RBC Distribution Width CV 13.7 % (11.6-14.6); RBC Distribution Width SD 54.3 fl (35.1-43.9); Red Blood Count 2.57 M/mm3 (4.2-5.4); White Blood Count 6.5 K/mm3 (4.4-11.0)
[2020-08-08 18:04] LABS: Albumin, Serum 3.1 g/dL (3.2-5.0); BUN 45 mg/dL (7-18); Calcium,Total 8.8 mg/dL (8.5-10.1); Chloride 116 mmol/L (98-107); Creatinine, Serum 2.65 mg/dL (0.55-1.02); EST Glomerular Filtration Rate 18 mL/min (>60); Est Glom Filt Rate - Afr Amer 22 mL/min (>60); Glucose 75 mg/dL (74-106); Phosphorus 3.4 mg/dL (2.5-4.9); Potassium 4.2 mmol/L (3.5-5.1); Sodium Level 144 mmol/L (136-145)
[2020-08-09 09:14] LABS: PTHIN 380.3 pg/mL (18.4-80.1)
== END ==
PROVIDERS: PCP Family Medicine; Referring Provider Family Medicine; Visit Provider Internal Medicine Nephrology
DX: N18.4 Chronic kidney disease, stage 4 (severe) (principal)
CPT/HCPCS: 36415; 80069; 83970; 85027

== ENCOUNTER → 2020-09-19 13:52 | Outpatient (CLI) | payer MEDICARE, SELFPAY ==
[2020-09-19 17:59] LABS: Hemoglobin 9.6 g/dL (12.0-15.0); Mean Corpuscular Hgb 33.4 pg (27.0-32.0); Mean Corpuscular Volume 104.5 fL (81-99); Mean Platelet Vol. 10.6 fl (6.2-12.0); Platelet Count 206 K/mm3 (150-450); RBC Distribution Width CV 13.1 % (11.6-14.6); RBC Distribution Width SD 49.8 fl (35.1-43.9); Red Blood Count 2.87 M/mm3 (4.2-5.4); White Blood Count 6.1 K/mm3 (4.4-11.0)
[2020-09-19 18:15] LABS: Albumin, Serum 3.6 g/dL (3.2-5.0); BUN 61 mg/dL (7-18); BUN/Creat Ratio 21.4 RATIO (10-20); Calcium,Total 9.3 mg/dL (8.5-10.1); Chloride 114 mmol/L (98-107); Creatinine, Serum 2.85 mg/dL (0.55-1.02); EST Glomerular Filtration Rate 17 mL/min (>60); Est Glom Filt Rate - Afr Amer 21 mL/min (>60); Ferritin 441 ng/mL (8-252); Glucose 66 mg/dL (74-106); Iron 78 ug/dL (50-170); Iron Binding Capacity,Total 238 ug/dL (250-450); PERCENT IRON SATURATION 32.8 % (15.0-55.0); Potassium 4.2 mmol/L (3.5-5.1); Sodium Level 141 mmol/L (136-145)
[2020-09-20 09:36] LABS: PTHIN 246.6 pg/mL (18.4-80.1)
== END ==
PROVIDERS: PCP Family Medicine; Visit Provider Internal Medicine Nephrology
DX: N18.4 Chronic kidney disease, stage 4 (severe) (principal); D50.9 Iron deficiency anemia, unspecified; N25.81 Secondary hyperparathyroidism of renal origin
CPT/HCPCS: 36415; 80069; 82728; 83540; 83550; 83970; 85027

== ENCOUNTER → 2020-10-06 | Outpatient (CLI) | payer MEDICARE, SELFPAY | END | disposition home or self-care (01) | LOC: LABSPEC 12:07 | PROVIDERS: PCP Family Medicine; Visit Provider Family Medicine | DX: N39.0 Urinary tract infection, site not specified (principal) | CPT/HCPCS: 87077; 87086; 87088; 87186 ==

== ENCOUNTER → 2020-11-22 12:32 | Outpatient (CLI) | payer MEDICARE, SELFPAY ==
[2020-11-22 15:16] LABS: Hematocrit 29.9 % (37-47); Hemoglobin 9.5 g/dL (12.0-15.0); Mean Corp Hgb Conc 31.8 g/dL (32-36); Mean Corpuscular Hgb 33.3 pg (27.0-32.0); Mean Corpuscular Volume 104.9 fL (81-99); Mean Platelet Vol. 10.8 fl (6.2-12.0); Platelet Count 200 K/mm3 (150-450); RBC Distribution Width CV 13.2 % (11.6-14.6); RBC Distribution Width SD 50.6 fl (35.1-43.9); Red Blood Count 2.85 M/mm3 (4.2-5.4); White Blood Count 5.5 K/mm3 (4.4-11.0)
[2020-11-22 15:31] LABS: Albumin, Serum 2.9 g/dL (3.2-5.0); BUN 67 mg/dL (7-18); BUN/Creat Ratio 20.9 RATIO (10-20); Calcium,Total 9.3 mg/dL (8.5-10.1); Chloride 115 mmol/L (98-107); Creatinine, Serum 3.21 mg/dL (0.55-1.02); EST Glomerular Filtration Rate 15 mL/min (>60); Est Glom Filt Rate - Afr Amer 18 mL/min (>60); Glucose 123 mg/dL (74-106); Phosphorus 3.6 mg/dL (2.5-4.9); Potassium 4.6 mmol/L (3.5-5.1); Sodium Level 142 mmol/L (136-145)
[2020-11-22 15:33] LABS: Vitamin D,25 Hydroxy 44.9 ng/mL
== END ==
PROVIDERS: PCP Family Medicine; Referring Provider Family Medicine; Visit Provider Internal Medicine Nephrology
DX: N18.4 Chronic kidney disease, stage 4 (severe) (principal); D50.9 Iron deficiency anemia, unspecified; N25.81 Secondary hyperparathyroidism of renal origin
CPT/HCPCS: 36415; 80069; 82306; 83970; 85027

== ENCOUNTER → 2020-11-23 16:44 | Outpatient (CLI) | payer MEDICARE, SELFPAY ==
[2020-11-23 17:37] LABS: Absolute Lymphocyte Count 1.69 X10^3/uL (0.83-4.51); Absolute Neutrophil Count 3.4 X10^3/uL (2.0-7.7); Basophil# 0.04 X10^3/uL; Basophil% 0.7 % (0-1); Eosinophil# 0.13 X10^3/uL; Eosinophils% 2.3 % (0-5); Hematocrit 29.2 % (37-47); Hemoglobin 9.4 g/dL (12.0-15.0); Lymphocyte # 1.69 X10^3/ul (0.83-4.51); Lymphocyte % 29.4 % (19-41); Mean Corp Hgb Conc 32.2 g/dL (32-36); Mean Corpuscular Hgb 33.5 pg (27.0-32.0); Mean Corpuscular Volume 103.9 fL (81-99); Mean Platelet Vol. 10.4 fl (6.2-12.0); Monocyte# 0.45 X10^3/uL; Monocyte% 7.8 % (0-10); NRBC Flagged by Analyzer 0 % (0-5); Neutrophil # 3.43 X10^3/uL (2.7-7.7); Neutrophil % 59.6 % (47-70); Platelet Count 202 K/mm3 (150-450); RBC Distribution Width CV 13.2 % (11.6-14.6); RBC Distribution Width SD 50.7 fl (35.1-43.9); Red Blood Count 2.81 M/mm3 (4.2-5.4); White Blood Count 5.8 K/mm3 (4.4-11.0)
[2020-11-23 18:48] LABS: Syphilis Antibodies Non-reactive; Vitamin B12 266 pg/mL (211-911); Vitamin D,25 Hydroxy 56.1 ng/mL
[2020-11-23 20:00] LABS: ALB/GLOB Ratio 0.8 RATIO (0.9-2.4); AST(SGOT) 29 U/L (15-37); Alanine Aminotransfer ALT/SGPT 22 U/L (13-56); Albumin, Serum 3.1 g/dL (3.2-5.0); Alkaline Phosphatase 98 U/L (45-117); Anion Gap 6 (5-15); BUN 61 mg/dL (7-18); BUN/Creat Ratio 19.1 RATIO (10-20); Calcium,Total 9.3 mg/dL (8.5-10.1); Chloride 116 mmol/L (98-107); EST Glomerular Filtration Rate 15 mL/min (>60); Est Glom Filt Rate - Afr Amer 18 mL/min (>60); Globulin 3.9 g/dL (2.2-4.2); Glucose 91 mg/dL (74-106); Potassium 4.7 mmol/L (3.5-5.1); Sodium Level 144 mmol/L (136-145); Thyroid Stim Hormone (TSH) 3.45 uIU/mL (0.358-3.74)
== END ==
LOC: POLAB3 16:46
PROVIDERS: PCP Family Medicine Geriatric Medicine; Visit Provider Family Medicine Geriatric Medicine
DX: R53.83 Other fatigue (principal); E55.9 Vitamin D deficiency, unspecified; F03.90 Unspecified dementia, unspecified severity, without behavioral disturbance, psychotic disturbance, mood disturbance, and anxiety; N39.0 Urinary tract infection, site not specified
CPT/HCPCS: 36415; 80053; 82306; 82607; 82746; 84443; 85025; 86780; 87086; 87088; 87186

== ENCOUNTER → 2020-12-04 11:15 | Outpatient (CLI) | payer MEDICARE, SELFPAY ==
--- NOTE | 2020-12-04 11:25 | RAD_ITS ---
STUDY: X-RAY - ABDOMEN/PELVIS REASON FOR EXAM: Female, 80 years old. FECAL IMPACTION OF COLON TECHNIQUE: Upright and supine AP abdomen radiographs COMPARISON: None. FINDINGS: Normal visualized lung bases. Nonobstructive bowel gas pattern. Copious stool layers in the pelvis and lower abdomen, including the large ball of stool in the rectum. There is no demonstrated free abdominal air. The visualized liver, spleen and kidneys are grossly normal in size and morphology. Normal soft tissue structures. There are diffuse degenerative changes of the visualized lumbar spine with levoscoliosis. RAD/Abd Inc Decub and/or Erect IMPRESSION: Findings compatible with colonic fecal impaction. Electronically Signed: Michael Coyle MD at 3:05 EDT Tel , Service support ,
== END ==
PROVIDERS: PCP Family Medicine Geriatric Medicine; Referring Provider Family Medicine Geriatric Medicine; Visit Provider Family Medicine Geriatric Medicine
DX: K56.41 Fecal impaction (principal)
CPT/HCPCS: 74019